=== PATIENT | male | born 1930 | race Caucasian/White ===

== ENCOUNTER 2020-02-27 09:05 | Inpatient (IN) | payer MEDICARE ==
[~2020-02-27] VITALS: Ht 193 cm; Wt 103.7 kg
[2020-02-27 09:26] LABS: BASOPHILS % (AUTO) 0 % (0-10); EOSINOPHILS % (AUTO) 1 % (0-10); HEMATOCRIT 41 % (40-54); HEMOGLOBIN 12.8 g/dL (13.3-17.7); LYMPHOCYTES # (AUTO) 1.2 10^3/uL (1.0-4.0); LYMPHOCYTES % (AUTO) 20 % (12-44); MEAN CORPUSCULAR HEMOGLOBIN 31 pg (25-34); MEAN CORPUSCULAR HGB CONC 31 g/dL (32-36); MEAN CORPUSCULAR VOLUME 99 fL (80-99); MEAN PLATELET VOLUME 10.4 fL (9.0-12.2); MONOCYTES # (AUTO) 0.6 10^3/uL (0.0-1.0); MONOCYTES % (AUTO) 9 % (0-12); NEUTROPHILS # (AUTO) 4.4 10^3/uL (1.8-7.8); NEUTROPHILS % (AUTO) 70 % (42-75); PLATELET COUNT 150 10^3/uL (130-400); WHITE BLOOD COUNT 6.3 10^3/uL (4.3-11.0)
[2020-02-27 09:39] LABS: ALBUMIN 4.1 GM/DL (3.2-4.5); INR 1.1 (0.8-1.4); POTASSIUM 5.1 MMOL/L (3.6-5.0); PROTHROMBIN TIME PATIENT 14.3 SEC (12.2-14.7)
[2020-02-27 09:40] LABS: CALCIUM 8.9 MG/DL (8.5-10.1)
[2020-02-27 09:41] LABS: TOTAL PROTEIN 7.1 GM/DL (6.4-8.2)
[2020-02-27 09:43] LABS: BILIRUBIN,TOTAL 0.8 MG/DL (0.1-1.0)
[2020-02-27 09:45] LABS: CREATININE SERUM 1.71 MG/DL (0.60-1.30)
[2020-02-27 09:48] LABS: MAGNESIUM 2.4 MG/DL (1.6-2.4)
[2020-02-27 09:51] LABS: BILIRUBIN,URINE NEGATIVE (NEGATIVE); CLARITY,URINE CLEAR; COLOR,URINE YELLOW; GLUCOSE, URINE (UA) NEGATIVE (NEGATIVE); KETONES,URINE NEGATIVE (NEGATIVE); LEUKOCYTE ESTERASE ,URINE NEGATIVE (NEGATIVE); NITRITE,URINE NEGATIVE (NEGATIVE); PH,URINE 5.5 (5-9); PROTEIN,URINE 1+ (NEGATIVE)
[2020-02-27] MEDS ORDERED: RT-ALBUTEROL INHALER HFA (VENTOLIN HFA) 18 GM IH SCH (10:00)
[2020-02-27 10:07] LABS: BACTERIA,URINE TRACE /HPF
[2020-02-27 10:08] LABS: TSH (THYROID ANALYZER) 3.28 UIU/ML (0.35-4.94)
--- NOTE | 2020-02-27 10:10 | NUR ---
PATIENT ALERT AND TALKING
--- NOTE | 2020-02-27 10:20 | Diagnostic Imaging Report ---
Indication: Epigastric pain with nausea and vomiting and weakness. Comparison: None. Discussion: 2 portable frontal upright views of the chest were obtained. Mild cardiomegaly. No consolidation, pleural fluid, or pneumothorax. No osseous abnormality. Median sternotomy is present. Impression: 1. No acute cardiopulmonary process. Dictated by: Dictated on workstation # [id number]
--- NOTE | 2020-02-27 11:44 | ED Cardiac General ---
History of Present Illness General Chief Complaint: Cardiac/General Problems Stated Complaint: ABD PAIN Nursing Triage Note: PT ARRIVED PER EMS PT STATES HAS EPIGASTRIC PAIN, N/V AND WEAKNESS FOR A FEW DAYS. PT HAS EDEMA IN LOWER EXT Source: patient, family, EMS Exam Limitations: other (Poor historian) History of Present Illness Date Seen by Provider: Feb 27, 2020 Time Seen by Provider: 09:11 Initial Comments This 89-year-old gentleman presents to the emergency room via EMS because he was too weak to get up this morning. He describes some epigastric pain which has been present since 1998 intermittently. He reports this feeling and weakness and shortness of breath get worse when he is up and around. He notably has some falls at home but he denies any injuries. He is on chronic oxygen therapy by nasal cannula at home. He also has history of heart disease with CABG. He has been seeing a Dr. Martin Euceda in [place], [place]. He recently moved to the [facility] to live with his son after his . He sees Dr. Ibarra in [place] for cardiology. He is a poor historian which his daughter states happens when he does not feel well. History is obtained from EMS, patient, his son, and his daughter. His son is rBendon Mcmanus ("John Paul") [phone] and his daughter is Vonnie Barroso [phone]. EKG reveals complete heart block with a heart rate of 33. Vital signs are stable and he is alert. Son also reported patient had some vomiting and diarrhea recently and complained of increased shortness of breath. Allergies and Home Medications Allergies Coded Allergies: Penicillins (Verified Allergy, Unknown, 02/27/20) Patient Home Medication List Home Medication List Reviewed: Yes Review of Systems Review of Systems Constitutional: no symptoms reported, weakness EENTM: No Symptoms Reported, Other (Hearing deficits) Respiratory: SOA With Exertion Cardiovascular: See HPI Gastrointestinal: See HPI Genitourinary: No Symptoms Reported Musculoskeletal: no symptoms reported Skin: no symptoms reported Psychiatric/Neurological: See HPI Endocrine: No Symptoms Reported Hematologic/Lymphatic: No Symptoms Reported Past Tdliygc-Fzxolq-Bwlwvi Hx Past Med/Social Hx: Reviewed and Corrections made Patient Social History Recent Foreign Travel: No Contact w/Someone Who Travel: No Recent Infectious Disease Expo: No Past Medical History Surgeries: Yes CABG, Orthopedic (Knees, back) Respiratory: Yes (Chronic hypoxia, uses nasal cannula) Cardiac: Yes Coronary Artery Disease Neurological: No Genitourinary: Yes ("Urinary problems") Renal Failure (Chronic kidney disease) Gastrointestinal: No Musculoskeletal: No Endocrine: No HEENT: No Cancer: No Psychosocial: No Physical Exam Vital Signs Vital Signs - First Documented 02/27/20 02/27/20 09:05 09:29 Temp 36.4 Pulse 33 Resp 24 B/P (MAP) 146/76 (99) Pulse Ox 100 O2 Delivery Nasal Cannula O2 Flow Rate 2.00 Capillary Refill : Less Than 3 Seconds Height, Weight, BMI Height: '" Weight: lbs. oz. kg; 30.00 BMI Method: General Appearance: No Apparent Distress, WD/WN HEENT: PERRL/EOMI, Normal ENT Inspection Neck: Normal Inspection Respiratory: No Accessory Muscle Use, No Respiratory Distress, Wheezing Cardiovascular: Bradycardia, Other (LE Edema) Gastrointestinal: Normal Bowel Sounds, Soft, Tenderness (mild epigastric TTP) Extremity: Non Tender, Pedal Edema, Swelling Neurologic/Psychiatric: Alert, No Motor/Sensory Deficits, Normal Mood/Affect, service order dispatcher chief II-XII Norm as Tested, Other (mildly confused conversation, poor historian) Skin: Normal Color, Warm/Dry Progress/Results/Core Measures Results/Orders Lab Results Laboratory Tests Test 02/27/20 09:15 02/27/20 09:45 02/27/20 11:05 Range/Units White Blood Count 6.3 4.3-11.0 10^3/uL Red Blood Count 4.19 L 4.30-5.52 10^6/uL Hemoglobin 12.8 L 13.3-17.7 g/dL Hematocrit 41 40-54 % Mean Corpuscular Volume 99 80-99 fL Mean Corpuscular Hemoglobin 31 25-34 pg Mean Corpuscular Hemoglobin Concent 31 L 32-36 g/dL Red Cell Distribution Width 13.0 10.0-14.5 % Platelet Count 150 130-400 10^3/uL Mean Platelet Volume 10.4 9.0-12.2 fL Immature Granulocyte % (Auto) 0 % Neutrophils (%) (Auto) 70 42-75 % Lymphocytes (%) (Auto) 20 12-44 % Monocytes (%) (Auto) 9 0-12 % Eosinophils (%) (Auto) 1 0-10 % Basophils (%) (Auto) 0 0-10 % Neutrophils # (Auto) 4.4 1.8-7.8 10^3/uL Lymphocytes # (Auto) 1.2 1.0-4.0 10^3/uL Monocytes # (Auto) 0.6 0.0-1.0 10^3/uL Eosinophils # (Auto) 0.0 0.0-0.3 10^3/uL Basophils # (Auto) 0.0 0.0-0.1 10^3/uL Immature Granulocyte # (Auto) 0.0 0.0-0.1 10^3/uL Prothrombin Time 14.3 12.2-14.7 SEC INR Comment 1.1 0.8-1.4 Activated Partial Thromboplast Time 32 24-35 SEC Sodium Level 137 135-145 MMOL/L Potassium Level 5.1 H 3.6-5.0 MMOL/L Chloride Level 106 98-107 MMOL/L Carbon Dioxide Level 21 21-32 MMOL/L Anion Gap 10 5-14 MMOL/L Blood Urea Nitrogen 33 H 7-18 MG/DL Creatinine 1.71 H 0.60-1.30 MG/DL Estimat Glomerular Filtration Rate 38 BUN/Creatinine Ratio 19 Glucose Level 106 H 70-105 MG/DL Calcium Level 8.9 8.5-10.1 MG/DL Corrected Calcium 8.8 8.5-10.1 MG/DL Magnesium Level 2.4 1.6-2.4 MG/DL Total Bilirubin 0.8 0.1-1.0 MG/DL Aspartate Amino Transf (AST/SGOT) 23 5-34 U/L Alanine Aminotransferase (ALT/SGPT) 21 0-55 U/L Alkaline Phosphatase 48 40-136 U/L Myoglobin 143.9 H 10.0-92.0 NG/ML Troponin I < 0.028 <0.028 NG/ML B-Type Natriuretic Peptide 995.3 H <100.0 PG/ML Total Protein 7.1 6.4-8.2 GM/DL Albumin 4.1 3.2-4.5 GM/DL Lipase 17 8-78 U/L TSH [place] Testing 3.28 0.35-4.94 UIU/ML Urine Color YELLOW Urine Clarity CLEAR Urine pH 5.5 5-9 Urine Specific [place] >=1.030 1.016-1.022 Urine Protein 1+ H NEGATIVE Urine Glucose (UA) NEGATIVE NEGATIVE Urine Ketones NEGATIVE NEGATIVE Urine Nitrite NEGATIVE NEGATIVE Urine Bilirubin NEGATIVE NEGATIVE Urine Urobilinogen 0.2 < = 1.0 MG/DL Urine Leukocyte Esterase NEGATIVE NEGATIVE Urine RBC (Auto) NEGATIVE NEGATIVE Urine RBC NONE /HPF Urine WBC NONE /HPF Urine Crystals NONE /LPF Urine Bacteria TRACE /HPF Urine Casts NONE /LPF Urine Mucus NEGATIVE /LPF Urine Culture Indicated NO Coronavirus 2019 (JONY) Negative Negative My Orders Orders - DEIDRE THOMPSON MD Cbc With Automated Diff (02/27/20:) Magnesium (02/27/20:17) Chest 1 View, Ap/Pa Only (02/27/20:) Ekg Tracing (02/27/20) Comprehensive Metabolic Panel (02/27/20:) Myoglobin Serum (02/27/20) Protime With Inr (02/27/20:) Partial Thromboplastin Time (02/27/20:) O2 (02/27/20:) Monitor-Rhythm Ecg Trace Only (02/27/20:) Lipid Panel (02/28/20 06:00) Ed Iv/Invasive Line Start (02/27/20:) Lipase (02/27/20:) Troponin I (02/27/20:) Thyroid Analyzer (02/27/20:) Ua Culture If Indicated (02/27/20:) Albuterol Inhaler (Ventolin Hfa) (02/27/20 10:00) Covid 19 Inhouse Test (02/27/20 10:48) BNP (02/27/20 10:51) Vital Signs/I&O 02/27/20 02/27/20 02/27/20 09:05 09:29 10:08 Temp 36.4 Pulse 33 33 Resp 24 18 B/P (MAP) 146/76 (99) 132/58 Pulse Ox 100 100 99 O2 Delivery Nasal Cannula Nasal Cannula O2 Flow Rate 2.00 2.00 Blood Pressure Mean: 82 Progress Progress Note : Progress Note Patient had a stable bradycardia. He was admitted to the ICU. Dr. Muhammad was consulted. Albuterol was given for his wheezing. Patient agreed with DNR status as communicated by his children but he is agreeable to pacing or pacemaker placement if needed. Initial ECG Impression Date: Feb 27, 2020 Initial ECG Impression Time: 09:15 Initial ECG Rate: 33 Comment Complete heart block with no ischemic changes. Diagnostic Imaging Diagonstic Imaging: Xray Plain Films/CT/US/NM/MRI: chest Comments NAME: [facility] REC#: [id number] PT STATUS: REG ER : [id number] PHYSICIAN: DEIDRE THOMPSON MD ADMIT DATE: 02/27/20/ER Draft Date of Exam:02/27/20 CHEST 1 VIEW, AP/PA ONLY Indication: Epigastric pain with nausea and vomiting and weakness. Comparison: None. Discussion: 2 portable frontal upright views of the chest were obtained. Mild cardiomegaly. No consolidation, pleural fluid, or pneumothorax. No osseous abnormality. Median sternotomy is present. Impression: 1. No acute cardiopulmonary process. Dictated on workstation # [id number] Dict: 02/27/20 1016 Trans: 02/27/20 1020 [facility] [id number] Interpreted by: CARLTON ZHANG MD Departure Communication (Admissions) Time/Spoke to Admitting Phy: 11:35 Dr. Peters Time/Spoke to Consulting Phy: 11:25 Dr. Muhammad Impression Primary Impression: Complete heart block Additional Impressions: Weakness Nausea vomiting and diarrhea Renal insufficiency Disposition: ADMITTED INPATIENT Condition: Stable Admissions Decision to Admit Reason: Admit from ER (General) Decision to Admit/Date: Feb 27, 2020 Time/Decision to Admit Time: 09:15 Departure-Patient Inst. Referrals: NO,LOCAL PHYSICIAN (PCP) Primary Care Physician DEIDRE THOMPSON MD Feb 27, 2020 11:44
--- NOTE | 2020-02-27 12:28 | NUR ---
DR LOPEZ HERE
[2020-02-27] MEDS ORDERED: ONDANSETRON 4 MG/2 ML (SDV) Z0FRAN IV PRN (13:30)
[2020-02-27] MEDS ORDERED: CATHETER FLUSH 10 ML SYR IV PRN (13:30)
--- NOTE | 2020-02-27 14:06 | Consultation-Cardiology ---
HPI-Cardiology Cardiology Consultation Date of Consultation 02/27/20 Date of Admission Time Seen by Provider: 13:00 Indication: complete heart block HPI 89 years old gentleman with history of coronary artery disease, has been following with a special education bus driver in [place]. Patient reported that he was not taking any cardiac medication, according to the son who is the caregiver patient was not on aspirin or any blood pressure medication, he was taking diuretics. He started to have increasing fatigue and loss of energy. No syncope, no chest pain, no shortness of breath. Patient was brought by EMS to the hospital and noted to be in complete heart block. On my evaluation was laying down in bed, in good spirits. Denied any active chest pain, able to hold a conversation blood pressure was stable. Not sure about his home medication. History was obtained with the assistance of the son, I visited with him over the phone Mr. Brendon najera [phone] Home Medications & Allergies Allergies: Coded Allergies: No Known Drug Allergies (Unverified , 02/27/20) Home Medication List Reviewed: Yes OUG-Jezgap-Lxduuh Hx Patient Social History Marital Status: Alcohol Use: Denies Use Recreational Drug Use: No Smoking Status: Former Smoker Type Used: Cigarettes Recent Foreign Travel: No Recent Infectious Disease Expo: No Recent Hopitalizations: No Past Medical History Discussed below Family Medical History Family Medical Hx Noncontributory Review of Systems-General Review of Systems Constitutional: see HPI, malaise, weakness EENTM: see HPI, no symptoms reported Respiratory: see HPI; No cough, No dyspnea on exertion, No hemoptysis, No orthopnea, No phlegm; short of breath; No stridor, No wheezing, No other Cardiovascular: see HPI; No chest pain, No edema, No Hx of Intervention, No palpitations, No syncope, No vascular heart diseas, No other Gastrointestinal: no symptoms reported, see HPI Genitourinary: no symptoms reported, see HPI Musculoskeletal: no symptoms reported, see HPI Skin: no symptoms reported, see HPI Psychiatric/Neurological: No Symptoms Reported, See HPI Reviewed Test Results Reviewed Test Results Lab Laboratory Tests Test 02/27/20 09:15 02/27/20 09:45 02/27/20 11:05 Range/Units White Blood Count 6.3 4.3-11.0 10^3/uL Red Blood Count 4.19 L 4.30-5.52 10^6/uL Hemoglobin 12.8 L 13.3-17.7 g/dL Hematocrit 41 40-54 % Mean Corpuscular Volume 99 80-99 fL Mean Corpuscular Hemoglobin 31 25-34 pg Mean Corpuscular Hemoglobin Concent 31 L 32-36 g/dL Red Cell Distribution Width 13.0 10.0-14.5 % Platelet Count 150 130-400 10^3/uL Mean Platelet Volume 10.4 9.0-12.2 fL Immature Granulocyte % (Auto) 0 % Neutrophils (%) (Auto) 70 42-75 % Lymphocytes (%) (Auto) 20 12-44 % Monocytes (%) (Auto) 9 0-12 % Eosinophils (%) (Auto) 1 0-10 % Basophils (%) (Auto) 0 0-10 % Neutrophils # (Auto) 4.4 1.8-7.8 10^3/uL Lymphocytes # (Auto) 1.2 1.0-4.0 10^3/uL Monocytes # (Auto) 0.6 0.0-1.0 10^3/uL Eosinophils # (Auto) 0.0 0.0-0.3 10^3/uL Basophils # (Auto) 0.0 0.0-0.1 10^3/uL Immature Granulocyte # (Auto) 0.0 0.0-0.1 10^3/uL Prothrombin Time 14.3 12.2-14.7 SEC INR Comment 1.1 0.8-1.4 Activated Partial Thromboplast Time 32 24-35 SEC Sodium Level 137 135-145 MMOL/L Potassium Level 5.1 H 3.6-5.0 MMOL/L Chloride Level 106 98-107 MMOL/L Carbon Dioxide Level 21 21-32 MMOL/L Anion Gap 10 5-14 MMOL/L Blood Urea Nitrogen 33 H 7-18 MG/DL Creatinine 1.71 H 0.60-1.30 MG/DL Estimat Glomerular Filtration Rate 38 BUN/Creatinine Ratio 19 Glucose Level 106 H 70-105 MG/DL Calcium Level 8.9 8.5-10.1 MG/DL Corrected Calcium 8.8 8.5-10.1 MG/DL Magnesium Level 2.4 1.6-2.4 MG/DL Total Bilirubin 0.8 0.1-1.0 MG/DL Aspartate Amino Transf (AST/SGOT) 23 5-34 U/L Alanine Aminotransferase (ALT/SGPT) 21 0-55 U/L Alkaline Phosphatase 48 40-136 U/L Myoglobin 143.9 H 10.0-92.0 NG/ML Troponin I < 0.028 <0.028 NG/ML B-Type Natriuretic Peptide 995.3 H <100.0 PG/ML Total Protein 7.1 6.4-8.2 GM/DL Albumin 4.1 3.2-4.5 GM/DL Lipase 17 8-78 U/L TSH [place] Testing 3.28 0.35-4.94 UIU/ML Urine Color YELLOW Urine Clarity CLEAR Urine pH 5.5 5-9 Urine Specific [place] >=1.030 1.016-1.022 Urine Protein 1+ H NEGATIVE Urine Glucose (UA) NEGATIVE NEGATIVE Urine Ketones NEGATIVE NEGATIVE Urine Nitrite NEGATIVE NEGATIVE Urine Bilirubin NEGATIVE NEGATIVE Urine Urobilinogen 0.2 < = 1.0 MG/DL Urine Leukocyte Esterase NEGATIVE NEGATIVE Urine RBC (Auto) NEGATIVE NEGATIVE Urine RBC NONE /HPF Urine WBC NONE /HPF Urine Crystals NONE /LPF Urine Bacteria TRACE /HPF Urine Casts NONE /LPF Urine Mucus NEGATIVE /LPF Urine Culture Indicated NO Coronavirus 2019 (JONY) Negative Negative Physical Exam Physical Exam Vital Signs Vital Signs - First Documented 02/27/20 02/27/20 09:05 09:29 Temp 36.4 Pulse 33 Resp 24 B/P (MAP) 146/76 (99) Pulse Ox 100 O2 Delivery Nasal Cannula O2 Flow Rate 2.00 Capillary Refill : Less Than 3 Seconds Height, Weight, BMI Height: '" Weight: lbs. oz. kg; 30.00 BMI Method: General Appearance: No Apparent Distress, WD/WN Eyes: Bilateral Eye Normal Inspection, Bilateral Eye PERRL, Bilateral Eye EOMI HEENT: PERRL/EOMI, TMs Normal, Normal ENT Inspection, Pharynx Normal, Moist Mucous Membranes Neck: Full Range of Motion, Normal Inspection, Non Tender, Supple, Carotid Bruit Respiratory: Chest Non Tender, Normal Breath Sounds, No Accessory Muscle Use, No Respiratory Distress Cardiovascular: No Edema, No Gallop, No JVD, Normal Peripheral Pulses, Bradycardia, Systolic Murmur Gastrointestinal: Normal Bowel Sounds, No Organomegaly, No Pulsatile Mass, Non Tender, Soft Back: Normal Inspection, No CVA Tenderness, No Vertebral Tenderness Extremity: Normal Capillary Refill, Normal Inspection, Normal Range of Motion, Non Tender, No Calf Tenderness, No Pedal Edema Neurologic/Psychiatric: Alert, Oriented x3, No Motor/Sensory Deficits, Normal Mood/Affect Skin: Normal Color, Warm/Dry Lymphatic: No Adenopathy A/P-Cardiology Admission Diagnosis Symptomatic bradycardia Complete heart block Coronary artery disease Hyperlipidemia Assessment/Plan Symptomatic bradycardia with complete heart block, heart rate in the 30s. Not sure if he is on any medication that can cause bradycardia. According to the son patient is not taking anything. He is asymptomatic and blood pressure is stable. I will start him on IV fluid and monitoring him overnight if he continued to be in complete heart Block I am planning to proceed with cardiac pacemaker implant. Discussed the procedure with the patient and his son. Coronary artery disease, history of CABG, no recent cardiac workup, no active chest pain. Currently in complete heart block with left bundle branch block. Continue to monitor Questionable history of hyperlipidemia, I'll monitor lipids Hypertension, monitor blood pressure, avoid beta blockers and calcium shunt blockers today until he had a pacemaker implanted Clinical Quality Measures DVT/VTE Risk/Contraindication: Risk Factor Score Per Nursin RFS Level Per Nursing on Admit: 4+=Very High SLADE LOPEZ MD Feb 27, 2020 14:06
[2020-02-27] MEDS ORDERED: FLU QUAD HIGH DOSE 240 MCG/0.7 ML 2020-21 (FLUZONE) IM ONE (14:15)
[2020-02-27 16:33] VITALS: BP 146/76
[2020-02-27] MEDS: CATHETER FLUSH 10 ML SYR IV SCH ×2 (16:57→21:46)
--- NOTE | 2020-02-27 19:47 | History & Physical-Hospitalist ---
History of Present Illness HPI/Chief Complaint Enrique Freire is an 89 year old male with PMH CAD who presented with fatigue. He is very hard of hearing and it is difficult to obtain history. He reports feeling tired. He says he feels sick. He feels nauseous. He denies chest pain. He denies shortness of breath. He denies any other pain. He denies any lightheadedness. Source: patient Exam Limitations: no limitations Date Seen 02/27/20 Time Seen by a Provider: 15:00 Attending Physician Arley Cullen MD PCP No,Local Physician Referring Physician Date of Admission Feb 27, 2020 at 11:35 Home Medications & Allergies Home Medications Reviewed patient Home Medication Reconciliation performed by pharmacy medication reconciliations fire sprinkler service technician and/or nursing. Patients Allergies have been reviewed. Allergies Allergies Coded Allergies Penicillins (Verified Allergy, Unknown, 02/27/20) Past Prllzjg-Fszljp-Zunsep Hx Past Med/Social Hx: Reviewed Nursing Past Med/Soc Hx Patient Social History Marrital Status: Alcohol Use: Denies Use Recreational Drug Use: No Smoking Status: Former Smoker Type Used: Cigarettes Recent Foreign Travel: No Contact w/other who traveled: No Recent Hopitalizations: No Recent Infectious Disease Expo: No Past Medical History Surgeries: CABG, Orthopedic (Knees, back) Cardiac: Coronary Artery Disease Genitourinary: Renal Failure (Chronic kidney disease) Review of Systems Constitutional: malaise, weakness EENTM: no symptoms reported Respiratory: no symptoms reported Cardiovascular: no symptoms reported Gastrointestinal: nausea Genitourinary: no symptoms reported Musculoskeletal: no symptoms reported Skin: no symptoms reported Psychiatric/Neurological: No Symptoms Reported Physical Exam Physical Exam Vital Signs Vital Signs - First Documented 02/27/20 02/27/20 02/27/20 09:05 09:29 16:33 Temp 36.4 Pulse 33 Resp 24 B/P (MAP) 146/76 (99) Pulse Ox 100 O2 Delivery Nasal Cannula O2 Flow Rate 2.00 FiO2 28 Capillary Refill : Less Than 3 Seconds Height, Weight, BMI Height: '" Weight: lbs. oz. kg; 30.00 BMI Method: General Appearance: No Apparent Distress, Obese HEENT: PERRL/EOMI, Pharynx Normal, Other (wearing glasses) Neck: Normal Inspection, Supple Respiratory: Lungs Clear, Normal Breath Sounds, No Respiratory Distress Cardiovascular: No Murmur, Bradycardia (regular rhythm) Gastrointestinal: Normal Bowel Sounds, Non Tender, Soft Extremity: Normal Inspection, Non Tender, No Pedal Edema Neurologic/Psychiatric: Alert, Oriented x3, Normal Mood/Affect, Other (hearing impaired) Skin: Normal Color, Warm/Dry Results Results/Procedures Labs Laboratory Tests 02/27/20 09:15 Patient resulted labs reviewed. Imaging: Reviewed Imaging Report Assessment/Plan Admission Diagnosis Third degree heart block Admission Status: Inpatient Order (span 2 midnights) Reason for Inpatient Admission: Heart block requiring likely pacemaker Assessment and Plan Third degree heart block EKG revealed complete heart block Cardiology consulted, appreciate assistance Planning for likely pacemaker tomorrow Troponin negative BNP mildly elevated No evidence of infectious process CKD 3b Cr 1.71, likely at baseline Continue to monitor CAD Not taking any home meds Started on Aspirin Advanced age Hearing impaired Obesity Clinically significant, no acute management needs DVT prophylaxis: held for procedure Diagnosis/Problems Diagnosis/Problems (1) Third degree heart block Status: Acute (2) 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
[2020-02-27] MEDS: RT-ALBUTEROL/IPRATROPIUM 3 ML (DUONEB) VIAL INH SCH (20:43)
[2020-02-28 03:08] LABS: HEMOGLOBIN 12.6 g/dL (13.3-17.7); MEAN PLATELET VOLUME 11.1 fL (9.0-12.2); WHITE BLOOD COUNT 7.4 10^3/uL (4.3-11.0)
[2020-02-28 03:23] LABS: POTASSIUM 4.7 MMOL/L (3.6-5.0)
[2020-02-28 03:24] LABS: ALBUMIN 4.1 GM/DL (3.2-4.5)
[2020-02-28 03:26] LABS: TOTAL PROTEIN 7.1 GM/DL (6.4-8.2)
[2020-02-28 03:28] LABS: BILIRUBIN,TOTAL 0.8 MG/DL (0.1-1.0)
[2020-02-28 03:30] LABS: CREATININE SERUM 1.76 MG/DL (0.60-1.30)
[2020-02-28] MEDS: CATHETER FLUSH 10 ML SYR IV SCH ×3 (04:54→22:23)
[2020-02-28] MEDS: ASPIRIN E.C. 81 MG (ECOTRIN) TAB PO SCH (08:06)
[2020-02-28] MEDS ORDERED: NS IV 1000 ML 1,000 ML IV ONE (09:13)
[2020-02-28] MEDS ORDERED: BACITRACIN INJECTION 50,000 UNIT, SODIUM CHLORIDE 0.9% IRRIGATIO 500 ML IR ONE ×2 (09:15)
[2020-02-28] MEDS ORDERED: CA C1TAB75 PO (09:36)
[2020-02-28] MEDS ORDERED: OMEP40CA27 PO (09:36)
[2020-02-28] MEDS ORDERED: LORA10TA7 PO (09:36)
[2020-02-28] MEDS ORDERED: PRAV80TA2 PO (09:36)
[2020-02-28] MEDS ORDERED: SERT25TA5 PO (09:36)
[2020-02-28] MEDS ORDERED: MULT-1136 PO (09:36)
[2020-02-28] MEDS ORDERED: ACET-2650 PO (09:36)
[2020-02-28] MEDS ORDERED: CLOP75TA28 PO (09:36)
[2020-02-28] MEDS ORDERED: FURO20TA4 PO (09:36)
--- NOTE | 2020-02-28 09:37 | NUR ---
UNABLE TO SPEAK WITH THE PT AT THIS TIME- I DID REACH OUT TO HIS STEP SON (LORAINE) WHO HE KNOW LIVES WITH AND WENT THRU THE EXT MED HISTORY TO COMPLETE THE MED REC LORAINE WAS ABLE TO NAME ALL OF ED'S MEDS WELL TELLING ME WHEN/HOW PT TAKES EACH MED. ALL HIS INFORMATION MATCHED THE EXT MED HISTORY OTC MEDS: TYLENOL 650MG [employer] CALCIUM W/ VIT D CHEWS LORATADINE
[2020-02-28] MEDS ORDERED: LIDOCAINE 1% INJ 20 ML 20 ML VIAL ONE (10:07)
[2020-02-28] MEDS ORDERED: MIDAZOLAM 5 MG/5 ML (VERSED) VIAL ONE (10:07)
[2020-02-28] MEDS ORDERED: fentaNYL INJECTION 100 MCG/2 ML AMP ONE (10:08)
[2020-02-28] MEDS ORDERED: NS (IVPB) 0 ML ONE (10:08)
[2020-02-28] MEDS ORDERED: NS IV 1000 ML 1,000 ML ONE (10:08)
[2020-02-28] MEDS ORDERED: VANCOMYCIN INJECTION 1,000 MG in NS (IVPB) 250 ML IV ONE (10:15)
[2020-02-28] MEDS ORDERED: HEParin (CATH LAB) 1,000 ML IV ONE (10:34)
--- NOTE | 2020-02-28 10:41 | Cardiology Progress Note ---
Subjective Date Seen by Provider: Feb 28, 2020 Time Seen by Provider: 10:39 Subjective/Events-last exam Patient was seen and evaluated, laying down in bed, denied any chest pain, still bradycardic Review of Systems General: No Chills, No Night Sweats; Fatigue, Malaise; No Appetite, No Other HEENT: No Head Aches, No Visual Changes, No Eye Pain, No Ear Pain, No Dyspha bhupinder, No Sinus Congestion, No Post Nasal Drip, No Sore Throat, No Other Pulmonary: No Dyspnea, No Cough, No Pleuritic Chest Pain, No Other Cardiovascular: No: Chest Pain, Palpitations, Orthopnea, Paroxysmal Noc. Dyspnea, Edema, Lt Headedness, Other Objective-Cardiology Exam Last Set of Vital Signs Vital Signs 02/27/20 02/28/20 02/28/20 02/28/20 02/28/20 16:33 05:00 06:00 06:46 08:00 Temp 36.4 Pulse 34 Resp 25 B/P (MAP) 119/65 Pulse Ox 92 O2 Delivery Nasal Cannula O2 Flow Rate 2.00 FiO2 28 Capillary Refill : Less Than 3 Seconds I&O Intake and Output 02/28/20 00:00 Intake Total 250 ml Output Total 120 ml Balance 130 ml Intake Oral 250 ml Output Urine Total 120 ml Daily Weight Change No General: Alert, Oriented X3, Cooperative HEENT: Atraumatic, PERRLA Neck: Supple, No JVD, No Thyromegaly Lungs: Clear to Auscultation, Normal Air Movement Heart: Normal S1, Normal S2, No Murmurs, Other (bradycardia) Abdomen: Normal Bowel Sounds, Soft, No Tenderness, No Hepatosplenomegaly, No Masses Extremities: No Clubbing, No Cyanosis, No Edema, Normal Pulses, No Tenderness/Swelling Skin: No Rashes, No Breakdown, No Significant Lesion Neuro: Normal Gait, Normal Speech, Strength at 5/5 X4 Ext, Normal Tone, Sensation Intact Psych/Mental Status: Mental Status NL, Mood NL Results Lab Laboratory Tests 02/28/20 02:59 A/P-Cardiology Admission Diagnosis Symptomatic bradycardia Complete heart block Coronary artery disease Hyperlipidemia Assessment/Plan Symptomatic bradycardia with complete heart block, heart rate in the 30s. Discussed the management plan again with his son Brendon, I will proceed with dual- chamber pacemaker implantation today Coronary artery disease, history of CABG, no recent cardiac workup, no active chest pain. Currently in complete heart block with left bundle branch block. Continue to monitor Hyperlipidemia, LDL 104, total cholesterol 147. Continue statin treatment Hypertension, monitor blood pressure, avoid beta blockers and calcium shunt blockers today until he had a pacemaker implanted Clinical Quality Measures DVT/VTE Risk/Contraindication: Risk Factor Score Per Nursin RFS Level Per Nursing on Admit: 4+=Very High SLADE LOPEZ MD Feb 28, 2020 10:41
--- NOTE | 2020-02-28 10:42 | Cardiac Procedure Note-CS/ASA ---
Pre-Procedure Note Pre-Op Procedure Note H&P Reviewed The H&P was reviewed, patient examined and no changes noted. Date H&P Reviewed: Feb 28, 2020 Time H&P Reviewed: 10:41 Conscious Sedation Pre-Proced Time 10:41 ASA Score 3 For ASA 3 and 4: Consider anesthesia and medical clearance. Also, for patients with a history of failed moderate sedation consider anesthesia. Airway Lungs Heart ASA score ASA 1: a normal healthy patient ASA 2: a patient with a mild systemic disease (mid diabetes, controlled hypertension, obesity x ASA 3: a patient with a severe systemic disease that limits activity (angina, COPD, prior Myocardial infarction) ASA 4: a patient with an incapacitating disease that is a constant threat to life (CHF, renal failure) ASA 5: a moribund patient not expected to survive 24 hrs. (ruptured aneurysm) ASA 6: a declared brain- patient whose organs are being harvested. For emergent operations, add the letter E after the classification Mallampati Classification Grade 3 Sedation Plan Analgesia, Amnesia, Plan communicated to team members, Discussed options with patient/fam, Discussed risks with patient/fam The patient is an appropriate candidate to undergo the planned procedure, sedation, and anesthesia. The patient immediately re-assessed prior to indication. SLADE LOPEZ MD Feb 28, 2020 10:42
--- NOTE | 2020-02-28 12:40 | Progress Note - Hospitalist ---
Subjective HPI/CC On Admission Date Seen by Provider: Feb 28, 2020 Time Seen by Provider: 09:15 Enrique Freire is an 89 year old male with PMH CAD who presented with fatigue. He is very hard of hearing and it is difficult to obtain history. He reports feeling tired. He says he feels sick. He feels nauseous. He denies chest pain. He denies shortness of breath. He denies any other pain. He denies any lightheadedness. Subjective/Events-last exam He reports feeling about the same as yesterday. He denies any shortness of breath. He denies any pain. Objective Exam Vital Signs Vital Signs Date Time Temp Pulse Resp B/P (MAP) Pulse Ox O2 Delivery O2 Flow Rate FiO2 02/28/20 10:00 32 18 151/83 79 Nasal Cannula 2.00 02/28/20 08:00 36.4 02/27/20 16:33 28 Capillary Refill : Less Than 3 Seconds General Appearance: No Apparent Distress, WD/WN Respiratory: Lungs Clear, Normal Breath Sounds, No Respiratory Distress Cardiovascular: No Murmur, Bradycardia (regular rhythm) Gastrointestinal: Normal Bowel Sounds, Non Tender, Soft Extremity: Normal Inspection, Non Tender, No Pedal Edema Skin: Normal Color, Warm/Dry Results/Procedures Lab Laboratory Tests 02/28/20 02:59 Patient resulted labs reviewed. Imaging: Reviewed Imaging Report Assessment/Plan Assessment and Plan Assess & Plan/Chief Complaint Complete heart block EKG revealed complete heart block Cardiology consulted, appreciate assistance Scheduled for pacemaker today Troponin negative BNP mildly elevated No evidence of infectious process CKD 3b Cr 1.76, likely at baseline Continue to monitor CAD Not taking any home meds Started on Aspirin Advanced age Hearing impaired Clinically significant, no acute management needs DVT prophylaxis: held for procedure Diagnosis/Problems Diagnosis/Problems (1) Complete heart block Status: Acute (2) 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
[2020-02-28] MEDS ORDERED: NS IV 1000 ML 1,000 ML IV SCH (12:58)
[2020-02-28] MEDS ORDERED: PATIENT MAY USE OWN MEDS, ALL PO SCH (13:00)
[2020-02-28] MEDS ORDERED: ATROPINE INJECTION 1 MG/10 ML SYR (ABBOTT) INJ ONE (13:07)
--- NOTE | 2020-02-28 13:08 | Permanent Pacemaker Implant ---
Dual Chamber Pacemaker Implant PROCEDURE PHYSICIAN: Slade Muhammad DUAL CHAMBER PACEMAKER IMPLANTATION: DATE OF PROCEDURE: 02/28/20 INDICATION: Complete heart block, bradycardia POSTOPERATIVE DIAGNOSIS: Complete heart block HISTORY: 89 years old gentleman admitted with generalized weakness and loss of energy noted to be in severe bradycardia with complete heart block. Dual-chamber permanent pacemaker was recommended. PROCEDURE PERFORMED: 1. Dual-chamber permanent pacemaker implantation. 2. Fluoroscopy. 3. Central venous access. 4. Venogram ANESTHESIA: Local anesthesia, conscious sedation. COMPLICATIONS: None. ESTIMATED BLOOD LOSS:300 mL. SPECIMENS: None. ORAL ANTICOAGULATION: None. PROCEDURE DETAILS: The patient is a 89 male admitted with severe bradycardia and complete heart block, placed him on IV fluid and monitor overnight no improvement in heart rate. Decided to proceed with dual-chamber pacemaker implant. And after all of the patients questions and discussing with the son and answering all questions were answered, the patient was brought to the EP Lab. The patient's left chest was prepped and draped in sterile fashion. A 2 inch horizontal incision was made 1 cm below the clavicle and dissection carried down to the pectoralis fascia. Using the modified Seldinger technique and under fluoroscopy guidance, the anterior aspect of the left axillary vein was accessed 2 times, the first time the wire kept going in a small vein in the chest, not to work the right atrium. I left the wire in the vein and did venogram and it appear to be parallel to the subclavian vein. I removed the needle accessed again and it went again in that small vein. I changed the angle of access and I was able to access the left subclavian vein. Once I placed the J-wire while I was trying to access again patient became asystole, given 2 doses of atropine without improvement we started transcutaneous pacing multiple attempt was unsuccessful a little I was able to get blood back I was unable to advance the wire. Subsequently I placed the sheath then then removed the dilator and advanced a second wire in the sheath then removed the sheath and placed it over 1 wire and The second wire on the side. The RV lead was then inserted. The RV lead was directed across the tricuspid valve to the apical septal portion of the right ventricle. The position was checked in [place] and ASTUDILLO views. The screw was deployed and the lead connected to the gis programmer. Close sensing and pacing thresholds were obtained. Diaphragmatic pacing was ruled out. The lead was secured with 2-0 silk ties to the underlying muscle and fascia. Next, a 7-Korean sheath was introduced through the remaining J-wire. An atrial lead was then introduced and guided to the level of the right appendage. The screw was deployed and the lead was connected to the interrogator. Good sensing and pacing thresholds were obtained. Diaphragmatic pacing was ruled out. The leads were secured with 2-0 silk ties to the underlying muscle and fascia. The leads were connected to the device in a hermetic fashion. The device and leads were placed in the pocket. Aggressive irrigation with saline solution was done. The device was secured to the underlying muscle and fascia with a 2-0 silk tie. interrogation of the device revealed good integrity of all the leads and good connections. The wound was then closed using 2 layers. The first layer was interrupted 2-0 absorbable Vicryl suture. The last layer was a single subcuticular layer with 4-0 Vicryl suture. Half inch Steri-Strips and a small dressing were then applied to the wound. The patient tolerated the procedure well and was returned to the recovery room in stable condition with stable vital signs. DEVICE INFORMATION: GEETHA Terrell DR MRI [id number] RA LEAD: [id number] RV LEAD: [id number] PER-OPERATIVE DEVICE INTERROGATION: Good sensing and capture activity IMMEDIATE POSTOPERATIVE DEVICE INTERROGATION: P-wave 1.2 V, impedance 380, threshold 1.25 ball at 0.4 ms R wave was not detected, after long positive was no intrinsic R-wave. Impedance 416 threshold 0.5 ball to 0.4 ms PLAN: The patient transferred to the ICU. We will continue with two more doses of IV antibiotics. We will check a chest x-ray and interrogate the device in the [facility]. The patient will continue on oral antibiotics for 5 days. CONCLUSION: Successful implantation of dual chamber pacemaker with no complication SLADE MUHAMMAD MD Feb 28, 2020 13:08
--- NOTE | 2020-02-28 13:37 | Diagnostic Imaging Report ---
EXAMINATION: Chest 1 view HISTORY: Pacemaker placement COMPARISON: 02/27/2020 FINDINGS: Median sternotomy wires are aligned. There are coronary artery bypass graft markers. Left subclavian pacemaker is present. No pneumothorax is seen. There is mild pulmonary edema. Heart is mildly enlarged. There is an unchanged prominence to the aortic knob. IMPRESSION: 1. No pneumothorax status post pacemaker placement. 2. Prominent aortic knob which may be related to underlying aortic aneurysm. Dictated by: Dictated on workstation # [id number]
[2020-02-28] MEDS: ceFAZolin INJECTION 1,000 MG in WATER (STERILE) FOR INJECTION 10 ML IV SCH ×2 (13:46→22:25)
[2020-02-28] MEDS: RT-ALBUTEROL/IPRATROPIUM 3 ML (DUONEB) VIAL INH SCH ×2 (14:52→21:22)
--- NOTE | 2020-02-28 15:15 | NUR ---
THIS NURSE NOTIFIED DR UCLLEN PT SCORED A [address] CULLEN WOULD LIKE THIS NURSE TO ASK DR LOPEZ WHEN PT CAN HAVE LOVENOX. DR LOPEZ NOTIFIED THIS NURSE PT CAN START LOVENOX TOMORROW. DR CULLNE NOTIFIED. WILL CONTINUE TO MONITOR.
--- NOTE | 2020-02-28 19:21 | NUR ---
THIS NURSE NOTIFIED DR CULLEN PT HAS NOT VOIDED IN THE LAST 6 HOURS. PT HAS BEEN NPO FOR PROCEDURE AND HAS NOT EATEN OR DRANK ANYTHING SINCE. BLADDER SCAN SHOWED 40-50 ML. PT IS ASYMPTOMATIC. SBP HAS BEEN 130-140S AND HR HAS BEEN 70-80. ORDER GIVEN TO CONTINUE NS AT 100ML/HR AND TO MONITOR FOR NOW.
[2020-02-28] MEDS: NS IV 1000 ML 1,000 ML IV SCH (19:31)
[2020-02-29 00:20] VITALS: BP 127/78
[2020-02-29] MEDS ORDERED: RT-ALBUTEROL INHALER HFA (VENTOLIN HFA) 18 GM IH PRN (00:30)
--- NOTE | 2020-02-29 01:15 | NUR ---
E-ICU CALLED D/T PT BECOMING INCREASINGLY AGITATED AND PULLING OUT LINES. ORDERS RECEIVED. SEE ORDER HISTORY.
[2020-02-29] MEDS ORDERED: MELATONIN 3 MG TABLET ONE (02:11)
[2020-02-29] MEDS: MELATONIN 3 MG TABLET PO SCH ×3 (02:13→20:07)
[2020-02-29] MEDS: RT-ALBUTEROL INHALER HFA (VENTOLIN HFA) 18 GM IH SCH ×4 (02:31→21:00)
[2020-02-29 03:45] LABS: HEMOGLOBIN 11.5 g/dL (13.3-17.7); WHITE BLOOD COUNT 7.4 10^3/uL (4.3-11.0)
[2020-02-29 03:58] LABS: ALBUMIN 3.9 GM/DL (3.2-4.5)
[2020-02-29 03:59] LABS: POTASSIUM 4.2 MMOL/L (3.6-5.0)
[2020-02-29 04:00] LABS: CALCIUM 8.3 MG/DL (8.5-10.1)
[2020-02-29 04:01] LABS: TOTAL PROTEIN 6.6 GM/DL (6.4-8.2)
[2020-02-29 04:05] LABS: CREATININE SERUM 1.39 MG/DL (0.60-1.30)
[2020-02-29] MEDS: CATHETER FLUSH 10 ML SYR IV SCH ×2 (04:58→14:50)
[2020-02-29] MEDS: ceFAZolin INJECTION 1,000 MG in WATER (STERILE) FOR INJECTION 10 ML IV SCH (05:00)
[2020-02-29] MEDS: NS IV 1000 ML 1,000 ML IV SCH (05:01)
--- NOTE | 2020-02-29 05:30 | NUR ---
SITTER PLACED AT BEDSIDE AT 0200 D/T PT INCREASED AGITATION. PT HAS BEEN ATTEMPTING TO GET OUT OF BED, PULLING AT IV AND MCCONNELL CATHETER. PT IS VERY HARD TO REDIRECT AND PULLING HAS BECOME WORSE. CALL PLACED TO E-ICU TO UPDATE ON PT STATUS. ORDERS RECEIVED FOR 0.25 MG XANAX.
[2020-02-29] MEDS ORDERED: ALPRAZolam 0.25 MG (XANAX) TAB ONE (05:39)
[2020-02-29] MEDS ORDERED: ALPRAZolam 0.25 MG (XANAX) TAB PO ONE (05:45)
--- NOTE | 2020-02-29 06:00 | NUR ---
0600- PT ATTEMPTING TO CRAWL OUT OF BED AND UNABLE TO BE REDIRECTED. MULTIPLE RNS HOLDING PT IN BED. E-ICU CAMERA'D IN. ORDERS FOR FENTANYL GIVEN. SEE EMAR. 0630- DR CULLEN CALLED AND UPDATED ON PT STATUS. ORDERS GIVEN TO START PRECEDEX GTT.
[2020-02-29] MEDS ORDERED: fentaNYL INJECTION 100 MCG/2 ML AMP IVP ONE (06:30)
[2020-02-29] MEDS ORDERED: DexMEDEtomidine PRE MIX 100 ML IV ONE (06:45)
[2020-02-29] MEDS ORDERED: DexMEDEtomidine PRE MIX 100 ML IV SCH ×2 (06:45)
[2020-02-29] MEDS: ASPIRIN E.C. 81 MG (ECOTRIN) TAB PO SCH (09:38)
--- NOTE | 2020-02-29 11:00 | NUR ---
DR LOPEZ NOTIFIED THIS NURSE PT IS OKAY TO GO HOME FROM CARDIOLOGY STANDPOINT ONCE HE IS MORE AWAKE. PT IS TO F/U IN 1 [address] CULLEN NOTIFIED.
--- NOTE | 2020-02-29 11:51 | Cardiology Progress Note ---
Subjective Date Seen by Provider: Feb 29, 2020 Time Seen by Provider: 11:49 Subjective/Events-last exam Patient is in bed, was confused last night. Sedated. Review of Systems General: Fatigue, Malaise HEENT: No Head Aches, No Visual Changes, No Eye Pain, No Ear Pain, No Dysphasia, No Sinus Congestion, No Post Nasal Drip, No Sore Throat, No Other Pulmonary: No Dyspnea, No Cough, No Pleuritic Chest Pain, No Other Cardiovascular: No: Chest Pain, Palpitations, Orthopnea, Paroxysmal Noc. Dyspnea, Edema, Lt Headedness, Other Objective-Cardiology Exam Last Set of Vital Signs Vital Signs 02/29/20 02/29/20 02/29/20 00:20 08:14 10:00 Temp 37.1 Pulse 80 Resp 19 B/P (MAP) 126/69 Pulse Ox 93 O2 Delivery Nasal Cannula O2 Flow Rate 3.00 FiO2 36 Capillary Refill : Less Than 3 Seconds I&O Intake and Output 02/29/20 00:00 Intake Total 50 ml Output Total 1020 ml Balance -970 ml Intake Oral 50 ml Output Urine Total 1020 ml # Voids 1 General: Alert, No Acute Distress HEENT: Atraumatic, PERRLA Neck: Supple, No JVD, No Thyromegaly Lungs: Clear to Auscultation, Normal Air Movement Heart: Regular Rate, Normal S1, Normal S2, No Murmurs Abdomen: Normal Bowel Sounds, Soft, No Tenderness, No Hepatosplenomegaly, No Masses Extremities: No Clubbing, No Cyanosis, No Edema, Normal Pulses, No Tenderness/Swelling Skin: No Rashes, No Breakdown, No Significant Lesion Neuro: Normal Speech, Normal Tone, Sensation Intact Psych/Mental Status: Mood NL, Other (confused and agitated) Results Lab Laboratory Tests 02/29/20 03:12 A/P-Cardiology Admission Diagnosis Symptomatic bradycardia Complete heart block Coronary artery disease Hyperlipidemia Assessment/Plan Change in mental status, confusion and agitation, probably secondary to consci ous sedation and underlying dementia. Complete heart block status post dual-chamber pacemaker implantation done on February 28, 2020. Pacemaker dependent. Device check was good today. Will use clindamycin for 5 days due to penicillin allergy Coronary artery disease, history of CABG, no recent cardiac workup, no active chest pain. Currently in complete heart block with left bundle branch block. Continue to monitor Hyperlipidemia, LDL 104, total cholesterol 147. Continue statin treatment Hypertension, monitor blood pressure, avoid beta blockers and calcium shunt blockers today until he had a pacemaker implanted Dementia. Worsened last night probably secondary to staying in the hospital and conscious sedation Okay for discharge from cardiology standpoint and follow up with my office in one week, clindamycin for 5 days Clinical Quality Measures DVT/VTE Risk/Contraindication: Risk Factor Score Per Nursin RFS Level Per Nursing on Admit: 4+=Very High SLADE LOPEZ MD Feb 29, 2020 11:51
--- NOTE | 2020-02-29 14:48 | Progress Note - Hospitalist ---
Subjective HPI/CC On Admission Date Seen by Provider: Feb 29, 2020 Time Seen by Provider: 10:20 Enrique Freire is an 89 year old male with PMH CAD who presented with fatigue. He is very hard of hearing and it is difficult to obtain history. He reports feeling tired. He says he feels sick. He feels nauseous. He denies chest pain. He denies shortness of breath. He denies any other pain. He denies any lightheadedness. Subjective/Events-last exam he is lethargic and uncooperative. Objective Exam Vital Signs Vital Signs Date Time Temp Pulse Resp B/P (MAP) Pulse Ox O2 Delivery O2 Flow Rate FiO2 02/29/20 13:00 82 02/29/20 12:00 18 128/70 94 Nasal Cannula 3.00 02/29/20 08:14 37.1 02/29/20 00:20 36 Capillary Refill : Less Than 3 Seconds General Appearance: WD/WN, Other (lethargic) Respiratory: Lungs Clear, Normal Breath Sounds, No Respiratory Distress Cardiovascular: Regular Rate, Rhythm, No Edema, No Murmur Gastrointestinal: Normal Bowel Sounds, Non Tender, Soft Extremity: Normal Inspection, Non Tender Neurologic/Psychiatric: Other (lethargic, responds to painful stimuli, opens eyes and mumbles incoherent sounds) Skin: Normal Color, Warm/Dry Results/Procedures Lab Laboratory Tests 02/29/20 03:12 Patient resulted labs reviewed. Imaging: Reviewed Imaging Report Assessment/Plan Assessment and Plan Assess & Plan/Chief Complaint Complete heart block EKG revealed complete heart block Cardiology consulted, appreciate assistance Pacemaker placed 02/27 Delirium Likely dementia Hearing impaired Advanced age High risk for delirium Required sedating meds overnight due to agitation Avoid delirium triggers Reorient as needed CKD 3b Cr 1.39, likely at baseline Continue to monitor CAD Not taking any home meds Started on Aspirin DVT prophylaxis: Lovenox Diagnosis/Problems Diagnosis/Problems (1) Complete heart block Status: Acute (2) 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
[2020-02-29] MEDS: CLINDAMYCIN 150 MG (CLEOCIN) CAP PO SCH ×2 (14:50→20:08)
[2020-02-29] MEDS: ENOXAPARIN 40 MG/0.4 ML (LOVENOX) SYR SC SCH (15:08)
--- NOTE | 2020-02-29 16:10 | NUR ---
REPORT CALLED TO [facility] ON FOURTH FLOOR. PT TAKEN VIA BED WITH BELONGING. PT IS RESTING COMFORTABLY IN BED WITH CALL LIGHT. BED ALARM ON. PT DENIES ANY NEEDS. 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
--- NOTE | 2020-02-29 18:55 | NUR ---
ALYSE CALLED AT THIS TIME TO GET A BASELINE OF PT LOC FROM HIS EXAM THIS AM. THIS RN ASSESSES PT'S LOC WHILE ON THE PHONE WITH PHYSICIAN. PT IS EASILY AROUSABLE TO TOUCH AND LIGHT PAIN AT THIS TIME. ALYSE STATES THAT PT IS MORE ALERT THAN THIS MORNING AND TO JUST CONTINUE TO MONITOR.
[2020-03-01] MEDS: CLINDAMYCIN 150 MG (CLEOCIN) CAP PO SCH ×5 (00:35→23:45)
[2020-03-01] MEDS: CATHETER FLUSH 10 ML SYR IV SCH ×4 (00:36→20:43)
[2020-03-01] MEDS: RT-ALBUTEROL INHALER HFA (VENTOLIN HFA) 18 GM IH SCH ×4 (04:57→20:51)
[2020-03-01 06:05] LABS: POTASSIUM 4.5 MMOL/L (3.6-5.0)
[2020-03-01 06:06] LABS: CALCIUM 8.5 MG/DL (8.5-10.1)
[2020-03-01 06:11] LABS: CREATININE SERUM 1.18 MG/DL (0.60-1.30)
[2020-03-01] MEDS: ASPIRIN E.C. 81 MG (ECOTRIN) TAB PO SCH (08:04)
--- NOTE | 2020-03-01 08:36 | Cardiology Progress Note ---
Subjective Date Seen by Provider: Mar 01, 2020 Time Seen by Provider: 08:34 Subjective/Events-last exam Patient is more awake today, less confused. No new complaint, still having generalized weakness Review of Systems General: No Chills, No Night Sweats, No Fatigue, No Malaise, No Appetite, No Other HEENT: No Head Aches, No Visual Changes, No Eye Pain, No Ear Pain, No Dysphasia, No Sinus Congestion, No Post Nasal Drip, No Sore Throat, No Other Pulmonary: No Dyspnea, No Cough, No Pleuritic Chest Pain, No Other Cardiovascular: No: Chest Pain, Palpitations, Orthopnea, Paroxysmal Noc. Dyspnea, Edema, Lt Headedness, Other Objective-Cardiology Exam Last Set of Vital Signs Vital Signs 02/29/20 03/01/20 00:20 07:42 Temp 36.8 Pulse 90 Resp 22 B/P (MAP) 149/72 Pulse Ox 93 O2 Delivery Nasal Cannula O2 Flow Rate 2.00 FiO2 36 Capillary Refill : Less Than 3 Seconds I&O Intake and Output 03/01/20 00:00 Intake Total 2210 ml Output Total 1125 ml Balance 1085 ml Intake Oral 1200 ml IV Total 1010 ml Output Urine Total 1125 ml General: Alert, Cooperative, No Acute Distress HEENT: Atraumatic, PERRLA Neck: Supple, No JVD, No Thyromegaly Lungs: Clear to Auscultation, Normal Air Movement Heart: Regular Rate, Normal S1, Normal S2, No Murmurs Abdomen: Normal Bowel Sounds, Soft, No Tenderness, No Hepatosplenomegaly, No Masses Extremities: No Clubbing, No Cyanosis, No Edema, Normal Pulses, No Tenderness/Swelling Skin: No Rashes, No Breakdown, No Significant Lesion Neuro: Normal Speech, Normal Tone, Sensation Intact Psych/Mental Status: Mental Status NL, Mood NL Results Lab Laboratory Tests 03/01/20 05:05 A/P-Cardiology Admission Diagnosis Symptomatic bradycardia Complete heart block Coronary artery disease Hyperlipidemia Assessment/Plan Change in mental status, confusion and agitation, probably secondary to conscious sedation and underlying dementia. He is better today, still have some confusion but overall more awake and communicate better. Generalized weakness and loss of energy, PT were consulted Complete heart block status post dual-chamber pacemaker implantation done on February 28, 2020. Pacemaker dependent. Device check was good today. Will use clindamycin for 5 days due to penicillin allergy Coronary artery disease, history of CABG, no recent cardiac workup, no active chest pain. Currently in complete heart block with left bundle branch block. Continue to monitor Hyperlipidemia, LDL 104, total cholesterol 147. Continue statin treatment Hypertension, monitor blood pressure, avoid beta blockers and calcium shunt blockers today until he had a pacemaker implanted Dementia. Worsened last night probably secondary to staying in the hospital and conscious sedation Okay for discharge from cardiology standpoint and follow up with my office in one week, clindamycin for 5 days Clinical Quality Measures DVT/VTE Risk/Contraindication: Risk Factor Score Per Nursin RFS Level Per Nursing on Admit: 4+=Very High SLADE LOPEZ MD Mar 01, 2020 08:35
[2020-03-01] MEDS ORDERED: CLIN150C17 PO (12:22)
[2020-03-01] MEDS: ENOXAPARIN 40 MG/0.4 ML (LOVENOX) SYR SC SCH (14:36)
--- NOTE | 2020-03-01 16:38 | Progress Note - Hospitalist ---
Subjective HPI/CC On Admission Date Seen by Provider: Mar 01, 2020 Time Seen by Provider: 10:05 Enrique Freire is an 89 year old male with PMH CAD who presented with fatigue. He is very hard of hearing and it is difficult to obtain history. He reports feeling tired. He says he feels sick. He feels nauseous. He denies chest pain. He denies shortness of breath. He denies any other pain. He denies any lightheadedness. Subjective/Events-last exam He is still feeling fatigued. He is sitting in his bedside mary grace. He denies pain. He denies trouble breathing. Objective Exam Vital Signs Vital Signs Date Time Temp Pulse Resp B/P (MAP) Pulse Ox O2 Delivery O2 Flow Rate FiO2 03/01/20 15:50 37.0 74 18 141/82 97 Nasal Cannula 2.00 02/29/20 00:20 36 Capillary Refill : Less Than 3 Seconds General Appearance: No Apparent Distress, WD/WN Respiratory: Lungs Clear, Normal Breath Sounds, No Respiratory Distress Cardiovascular: Regular Rate, Rhythm, No Edema, No Murmur Gastrointestinal: Normal Bowel Sounds, Non Tender, Soft Extremity: Normal Inspection, Non Tender, No Pedal Edema Neurologic/Psychiatric: Alert, Normal Mood/Affect, Motor Weakness Skin: Normal Color, Warm/Dry Results/Procedures Lab Laboratory Tests 03/01/20 05:05 Patient resulted labs reviewed. Imaging: Reviewed Imaging Report Assessment/Plan Assessment and Plan Assess & Plan/Chief Complaint Debility PT/OT May require fdc vs home health on discharge Complete heart block EKG revealed complete heart block Cardiology consulted, appreciate assistance Pacemaker placed 02/27 Completing 5 day course of Clindamycin Delirium, resolved Likely dementia Hearing impaired Advanced age High risk for delirium Avoid delirium triggers Reorient as needed CKD 3b Cr 1.18, appears to be at baseline Continue to monitor CAD Not taking any home meds Started on Aspirin DVT prophylaxis: Lovenox Diagnosis/Problems Diagnosis/Problems (1) Complete heart block Status: Acute (2) 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
[2020-03-01] MEDS: MELATONIN 3 MG TABLET PO SCH (20:43)
[2020-03-02] MEDS: RT-ALBUTEROL INHALER HFA (VENTOLIN HFA) 18 GM IH SCH ×4 (03:27→19:21)
[2020-03-02] MEDS: CATHETER FLUSH 10 ML SYR IV SCH ×3 (05:51→19:50)
[2020-03-02] MEDS: CLINDAMYCIN 150 MG (CLEOCIN) CAP PO SCH ×4 (05:51→23:26)
[2020-03-02 06:21] LABS: CHLORIDE 104 MMOL/L (98-107); POTASSIUM 5.8 MMOL/L (3.6-5.0); SODIUM 134 MMOL/L (135-145)
[2020-03-02 06:22] LABS: CALCIUM 8.1 MG/DL (8.5-10.1)
[2020-03-02 06:23] LABS: GLUCOSE 103 MG/DL (70-105)
[2020-03-02 06:24] LABS: CARBON DIOXIDE 20 MMOL/L (21-32)
[2020-03-02 06:26] LABS: CREATININE SERUM 1.04 MG/DL (0.60-1.30); GFR ESTIMATED > 60
[2020-03-02 06:27] LABS: BUN/CREATININE RATIO 24
[2020-03-02] MEDS: ASPIRIN E.C. 81 MG (ECOTRIN) TAB PO SCH (09:38)
--- NOTE | 2020-03-02 10:03 | Cardiology Progress Note ---
Subjective Date Seen by Provider: Mar 02, 2020 Time Seen by Provider: 10:01 Subjective/Events-last exam Patient is laying down in bed, feeling better today. Still having generalized fatigue and loss of energy Review of Systems General: No Chills, No Night Sweats; Fatigue, Malaise; No Appetite, No Other HEENT: No Head Aches, No Visual Changes, No Eye Pain, No Ear Pain, No Dysphasia, No Sinus Congestion, No Post Nasal Drip, No Sore Throat, No Other Pulmonary: No Dyspnea, No Cough, No Pleuritic Chest Pain, No Other Cardiovascular: No: Chest Pain, Palpitations, Orthopnea, Paroxysmal Noc. Dyspnea, Edema, Lt Headedness, Other Objective-Cardiology Exam Last Set of Vital Signs Vital Signs 02/29/20 03/02/20 00:20 08:00 Temp 36.6 Pulse 86 Resp 16 B/P (MAP) 132/80 Pulse Ox 93 O2 Delivery Nasal Cannula O2 Flow Rate 2.00 FiO2 36 Capillary Refill : Less Than 3 Seconds I&O Intake and Output 03/02/20 00:00 Intake Total 1760 ml Output Total 1655 ml Balance 105 ml Intake Oral 1760 ml Output Urine Total 1625 ml Post Void Residual 30 ml # Voids 1 General: Alert, Cooperative, No Acute Distress HEENT: Atraumatic, PERRLA Neck: Supple, No JVD, No Thyromegaly Lungs: Clear to Auscultation, Normal Air Movement Heart: Regular Rate, Normal S1, Normal S2, No Murmurs Abdomen: Normal Bowel Sounds, Soft, No Tenderness, No Hepatosplenomegaly, No Masses Extremities: No Clubbing, No Cyanosis, No Edema, Normal Pulses, No Tenderness/Swelling Skin: No Rashes, No Breakdown, No Significant Lesion Neuro: Normal Speech, Normal Tone, Sensation Intact Psych/Mental Status: Mental Status NL, Mood NL Results Lab Laboratory Tests 03/02/20 05:49 A/P-Cardiology Admission Diagnosis Symptomatic bradycardia Complete heart block Coronary artery disease Hyperlipidemia Assessment/Plan Change in mental status, delirium, better today. Continue to monitor Generalized weakness, debility. Heart rate is better. 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 Pacemaker dependent. On clindamycin day number 3 / 5 Coronary artery disease, history of CABG, no recent cardiac workup, no active chest pain. Currently in complete heart block with left bundle branch block. Continue to monitor Hyperlipidemia, LDL 104, total cholesterol 147. Continue statin treatment Hypertension, monitor blood pressure, avoid beta blockers and calcium shunt blockers today until he had a pacemaker implanted Dementia. Worsened last night probably secondary to staying in the hospital and conscious sedation Okay for discharge from cardiology standpoint and follow up with my office in one week Clinical Quality Measures DVT/VTE Risk/Contraindication: Risk Factor Score Per Nursin RFS Level Per Nursing on Admit: 4+=Very High SLADE LOPEZ MD Mar 02, 2020 10:02 am
--- NOTE | 2020-03-02 10:22 | Physical Therapy Evaluation ---
PT Evaluation-General Medical Diagnosis Admission Date Feb 27, 2020 at 11:35 Medical Diagnosis: complete heart block/weakness Onset Date: Feb 27, 2020 Therapy Diagnosis Therapy Diagnosis: generalized weakness/debility Precautions Precautions/Isolations: Fall Prevention, Standard Precautions Referral Physician: Lorraine Reason for Referral: Evaluation/Treatment Medical History Pertinent Medical History: CABG, CAD, Renal Insufficiency Additional Medical History hypoxia (O2 dependent PLOF) Current History EMS secondary to epigastric pain for a few days and weakness (s/p pacemaker 02/28/20) Reviewed History: Yes Social History Home: Single Level Current Living Status: Other Family Prior Prior Level of Function SCALE: Activities may be completed with or without assistive devices. 4-Njvpxxiicm-nyppplv completes the activity by him/herself with no assistance from a helper. 5-Set-up or Clean-up Assistance-helper sets up or cleans up; patient completes activity. [place] assists only prior to or following the activity. 4-Supervision or Touching Assistance-helper provides verbal cues and/or touching/steadying and/or contact guard assistance as patient completes activity. Assistance may be provided throughout the activity or intermittently. 3-Partial/Moderate Assistance-helper does LESS THAN HALF the effort. [place] lifts, holds or supports trunk or limbs, but provides less than half the effort. 2-Substantial/Maximal Assistance-helper does MORE THAN HALF the effort. [place] lifts or holds trunk or limbs and provides more than half the effort. 8-Aydsnlref-gtshgf does ALL the effort. Patient does none of the effort to complete the activity. Or, the assistance of 2 or more helpers is required for the patient to complete the activity. If activity was not attempted, code reason: 7-Patient Refused. 9-Not Applicable-not attempted and the patient did not perform the activity before the current illness, exacerbation or injury. 10-Not Attempted due to Environmental Limitations-(lack of equipment, weather restraints, etc.). 88-Not Attempted due to Medical Conditions or Safety Concerns. Bed Mobility: 5 Transfers (B,C,W/C): 5 Gait: 5 Indoor Mobility (Ambulation): Needed Some Help Prior Devices Use: Walker PT Evaluation-Current Subjective Patient currently has a sitter in room due to confusion/dementia. Does wake to PT and agree to up to chair. Objective Patient Orientation: Confused Attachments: Oxygen ROM/Strength ROM Lower Extremities bilateral LE WFL Strength Lower Extremities 3+/5 grossly bilateral LE (unable to formally test due to confusion) Integumentary/Posture Integumentary refer to nursing notes Bladder Incontinence: Yes Posture WFL Neuromuscular (Tone, Coordination, Reflexes) slightly diminished coordination due to weakness/confusion Sensory Vision: Wears Glasses Hearing: Hearing Aid/Aides Transfers Lying to Sitting/Side of Bed(Q: 3 Sit to Stand (QC): 2 Chair/Urm-rf-Yrpcj Xfer(QC): 2 Gait Does the Patient Walk?: No and Walking Goal IS indicated Balance Sitting Static: Normal Sitting Dynamic: Normal Standing Static: Fair Standing Dynamic: Fair Assessment/Needs 89 y.o. male, will benefit from skilled PT to address functional strength and mobility to improve current LOF to safely return to home with family or care facility at maximum LOF. 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 [employer] Goals Retirement Goals PT Retirement Goals Time Frame: Mar 14, 2020 Roll Left & Right (QC): 5 Sit to Lying (QC): 5 Lying-Sitting on Side/Bed(QC): 5 Sit to Stand (QC): 5 Chair/Kjb-gg-Iejpx Xfer(QC): 5 Toilet Transfer (QC): 5 Does the Patient Walk: No and Walking Goal IS indicated Walk 10 feet (QC): 4 Walk 50ft with 2 Turns (QC): 4 PT Plan Problem List Problem List: Activity Tolerance, Functional Strength, Safety, Balance, Gait, Transfer, Bed Mobility Treatment/Plan Treatment Plan: Continue Plan of Care Treatment Plan: Bed Mobility, Education, Functional Activity Tone, Functional Strength, Gait, Safety, Therapeutic Exercise, Transfers Treatment Duration: Mar 14, 2020 Frequency: 6 times per week Estimated Hrs Per Day: .5 hour per day Time/GCodes Time In: 926 Time Out: 936 Total Billed Treatment Time: 10 Total Billed Treatment 1 visit EVModC 10 min REN MAGANA PT Mar 02, 2020 10:22
--- NOTE | 2020-03-02 10:47 | Occupational Therapy Eval ---
OT Evaluation-General/PLF Medical Diagnosis Admission Date Feb 27, 2020 at 11:35 Medical Diagnosis: complete heart block/weakness Onset Date: Feb 27, 2020 Therapy Diagnosis Therapy Diagnosis: Decreased ADL status Precautions Precautions/Isolations: Fall Prevention, Standard Precautions Referral Physician: Lorraine Referral Reason: Activity Tolerance, Self Care, Evaluation/Treatment, Strengthening/ROM Medical History Pertinent Medical History: CABG, CAD, Renal Insufficiency Additional Medical History Third degree heart block with pacemaker placement. Pt has 1:1 sitter present in room. Current History CAD, [place], obesity, HTN, dementia Reviewed History: Yes Social History Home: Single Level Current Living Status: Other Family (per PT, though pt states lives alone.) ADL-Prior Level of Function SCALE: Activities may be completed with or without assistive devices. 3-Bbnluvgcva-uykfoxe completes the activity by him/herself with no assistance from a helper. 5-Set-up or Clean-up Assistance-helper sets up or cleans up; patient completes activity. [place] assists only prior to or following the activity. 4-Supervision or Touching Assistance-helper provides verbal cues and/or touching/steadying and/or contact guard assistance as patient completes activity . Assistance may be provided throughout the activity or intermittently. 3-Partial/Moderate Assistance-helper does LESS THAN HALF the effort. [place] lifts, holds or supports trunk or limbs, but provides less than half the effort. 2-Substantial/Maximal Assistance-helper does MORE THAN HALF the effort. [place] lifts or holds trunk or limbs and provides more than half the effort. 6-Ctaimqphw-mquigm does ALL the effort. Patient does none of the effort to complete the activity. Or, the assistance of 2 or more helpers is required for the patient to complete the activity. If activity was not attempted, code reason: 7-Patient Refused. 9-Not Applicable-not attempted and the patient did not perform the activity before the current illness, exacerbation or injury. 10-Not Attempted due to Environmental Limitations-(lack of equipment, weather restraints, etc.). 88-Not Attempted due to Medical Conditions or Safety Concerns. ADL PLOF Comments Unable to gather full PLOF. Pt states lives in home alone, utilizes golf cart to go from place to place, states uses walker inside. Self Care: Unknown Functional Cognition: Unknown DME/Equipment Comments walker(s), cane Drive Self: Yes (golf cart.) OT Current Status Subjective Pt in chair upon entry. Live sitter present. Pt agrees to tx. Pt is confused, requiring increased redirection through session and very [place], requiring max volume and repetition of sentences. Pt very pleasant. Mental Status/Objective Patient Orientation: Person Current Glasses/Contacts: Yes Hearing Aids: Yes Dentures/Partials: Yes Hand Dominance: Right Upper Extremity ROM R tested only due to pacemaker precautions: RWFL Upper Extremity Coordination R/ L WFL Upper Extremity Sensation WFL Upper Extremity Strength R WFL ADL-Treatment Oral Hygiene (QC): 3 (min A to place toothpaste/ manipulate past cap) Shower/Bathe Self (QC): 1 (Pt able to wash face, requires assist for thoroughness due to eye crust limiting eye opening. Per clinical judgement, pt will require TD (Ax2) for safe bathing/ washing bottom in stance.) On/Off Footwear (QC): 1 (Pt attempts with LEs brought to floor. Unable to reach at this time.) Other Treatments Pt agrees to tx. Pt states lives alone, does use walker inside, though uses golf cart to go around outside. Pt's LUE hanging by side off of recliner. Pt does not know why pain in L arm. Pt is educated on pacemaker placement and educated on precautions. Pt is asked to remember 2 precautions. Pt unable to repeat immediately after education. Pt requires cues to keep eyes open. States crust limits opening and is also dizzy. Pt states "always dizzy." Pt completes face washing and oral care as outlined, all tasks require increased time. Pt is positioned in chair for L arm support, all needs met, call light in reach, 1:1 sitter comes in after OT leaves. Education OT Patient Education: Correct positioning, Purpose of tx/functional activities, Reviewed precautions Teaching Recipient: Patient Teaching Methods: Demonstration, Discussion Response to Teaching: Verbalize Understanding, Return Demonstration OT Dental Secretary Goals Dental Secretary Goals Time Frame: Mar 09, 2020 Eating (QC): 6 Oral Hygiene (QC): 6 Toileting Hygiene (QC): 3 Shower/Bathe Self (QC): 2 Upper Body Dressing (QC): 3 Lower Body Dressing (QC): 2 On/Off Footwear (QC): 3 Additional Goals: 1-Demonstrate ADL Tasks, 2-Verbalize Understanding, 3- ImproveStrength/Tone 1=Demonstrate adherence to instructed precautions during ADL tasks. 2=Patient will verbalize/demonstrate understanding of assistive devices/modifications for ADL. 3=Patient will improve strength/tolerance for activity to enable patient to perform ADL's. OT Education/Plan Problem List/Assessment Assessment: Decreased Activ Tolerance, Decreased Safety Aware, Decreased UE Strength, Dependent Transfers, Impaired Cognition, Impaired I ADL's, Impaired Self-Care Skills Discharge Recommendations Plan/Recommendations: Continue POC Therapy Discharge Recommendati: 24 Hour Supervision, Post Acute OT Treatment Plan/Plan of Care Treatment,Training & Education: Yes Patient would benefit from OT for education, treatment and training to promote independence in ADL's, mobility, safety and/or upper extremity function for ADL's. Plan of Care: ADL Retraining, Caregiver Training, Cognitive Retraining, Concurrent Therapy, Functional Mobility, UE Funct Exercise/Act, UE Neuromus Re- Ed/Coord Treatment Duration: Mar 09, 2020 Frequency: 5 times per week Estimated Hrs Per Day: .25 hour per day Agreement: Yes Rehab Potential: Guarded Time/GCodes Start Time: 10:10 Stop Time: 10:33 Total Time Billed (hr/min): 23 Billed Treatment Time 1, FREDDIE, BARRY THURMAN OTR Mar 02, 2020 10:47
--- NOTE | 2020-03-02 11:11 | NUR ---
CM/SS visited with patient for discharge planning. The patient was sitting up in his chair resting with sitter at bedside. The patient is easily aroused from his sleep. He is pleasant and alert. The patient does have some confusion. Plan: Patient will discharge to a skilled facility. Home: The patient lives at home with his adult son Brendon. Brendon reports that at this time he is working at [employer] for 12 hour shifts and would not be home. He states that the patient has progressively gotten worse physically and mentally. SNF: CM/SS spoke to the patient regarding discharge plans for home. The patient was pleasantly confused. CM/SS contacted Brendon to discuss placement vs home health at time of discharge. He reports that he needs the patient to go skilled due to not being able to meet his needs. The patient's son Brendon requested this sw sent a referral to [facility]. CM/SS sent a referral to Malissa at the facility. Awaiting acceptance/denial. DPOA: Brendon reports that him and Vonnie Barroso at the DPOA. CM/SS will continue to follow.
[2020-03-02] MEDS ORDERED: MELATONIN 3 MG TABLET PO PRN (12:45)
[2020-03-02] MEDS ORDERED: BENZONATATE 100 MG (TESSALON) CAPSULE PO PRN (12:45)
[2020-03-02] MEDS ORDERED: ONDANSETRON 4 MG/2 ML (SDV) Z0FRAN IV PRN (12:45)
[2020-03-02] MEDS ORDERED: ANTACID SUSP 30 ML UDC (MYLANTA) PO PRN (12:45)
[2020-03-02] MEDS ORDERED: MILK OF MAGNESIA 400 MG/5 ML 30 ML UDC PO PRN (12:45)
[2020-03-02] MEDS ORDERED: ACETAMINOPHEN 325 MG TABLET PO PRN (12:45)
[2020-03-02] MEDS ORDERED: risperiDONE 0.25 MG (RisperDAL) TAB PO ONE (15:00)
[2020-03-02] MEDS: ENOXAPARIN 40 MG/0.4 ML (LOVENOX) SYR SC SCH (15:31)
--- NOTE | 2020-03-02 15:43 | NUR ---
"RD ASSESSMENT PMHx: CAD; renal failure; PT INTERACTION: Pt was awake and pleasant during nutrition assessment. Note pt is hard of hearing and it was difficult to understand him at times. Pt states current appetite is okay. Note avg PO intake <25% meals, per chart review. Pt states no issues with nausea, vomiting, constipation, or diarrhea. Note no BM has been recorded, and pt not currently on bowel regimen per chart review. Pt states some recent wt loss, but stated it was a little. Note unable to determine recent wt hx, per chart review. ABNORMAL NUTRITION-RELATED LAB VALUES LOW: Na 134; Ca 8.1; HIGH: K 5.8; BUN 25; Est. kcal needs: 0131-9620 kcal | 20-25 kcal/kg Est. Pro needs: 86-108 g Pro | 0.8-1.0 g Pro/kg PES STATEMENT: Inadequate oral intake (NI-2.1) related to loss of appetite as evidenced by pt interview, and avg PO intake <25% meals. INTERVENTION: Continue with current diet order of 2000mg Na diet. Add Ensure Enlive (vary) to meals TID, for increased kcal intake. Provides 350 kcal and 20 g Pro per serving. Encouraged pt to eat when able. Will continue to follow and reassess as pt needs, intake, and status change. Estuardo Leonard MS RD LD [phone] cell"
[2020-03-02] MEDS ORDERED: risperiDONE 0.25 MG (RisperDAL) TAB PO SCH (21:00)
[2020-03-03] MEDS: RT-ALBUTEROL INHALER HFA (VENTOLIN HFA) 18 GM IH SCH ×2 (02:57→08:30)
[2020-03-03 05:23] LABS: CHLORIDE 101 MMOL/L (98-107); POTASSIUM 3.9 MMOL/L (3.6-5.0); SODIUM 135 MMOL/L (135-145)
[2020-03-03 05:24] LABS: CALCIUM 8.4 MG/DL (8.5-10.1); GLUCOSE 105 MG/DL (70-105)
[2020-03-03 05:26] LABS: CARBON DIOXIDE 24 MMOL/L (21-32)
[2020-03-03 05:28] LABS: CREATININE SERUM 0.91 MG/DL (0.60-1.30); GFR ESTIMATED > 60
[2020-03-03 05:29] LABS: BUN/CREATININE RATIO 22
[2020-03-03] MEDS: CLINDAMYCIN 150 MG (CLEOCIN) CAP PO SCH ×2 (06:29→12:13)
[2020-03-03] MEDS: CATHETER FLUSH 10 ML SYR IV SCH (06:30)
--- NOTE | 2020-03-03 09:57 | Discharge Summary ---
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 (3) CAD (coronary artery disease) Status: Chronic (4) Hearing impaired Status: Chronic (5) Advanced age Status: Chronic (6) Delirium due to multiple etiologies Status: Resolved (7) Debility Status: Acute Discharge Summary Discharge Physical Exam Allergies: Coded Allergies: Penicillins (Verified Allergy, Unknown, 02/27/20) Vitals & I&Os Vital Signs Date Time Temp Pulse Resp B/P (MAP) Pulse Ox O2 Delivery O2 Flow Rate FiO2 03/03/20 08:30 93 Nasal Cannula 2.00 03/03/20 08:00 36.1 85 24 132/82 02/29/20 00:20 36 Hospital Course Labs (last 24 hrs) Laboratory Tests 03/03/20 04:50: Sodium Level 135, Potassium Level 3.9, Chloride Level 101, Carbon Dioxide Level 24, Anion Gap 10, Blood Urea Nitrogen 20H, Creatinine 0.91, Estimat Glomerular Filtration Rate > 60, BUN/Creatinine Ratio 22, Glucose Level 105, Calcium Level 8.4L Microbiology 02/27/20 MRSA Screen - Final, Complete MRSA not isolated Patient resulted labs reviewed. Pending Labs Laboratory Tests 03/03/20 04:50: Sodium Level 135, Potassium Level 3.9, Chloride Level 101, Carbon Dioxide Level 24, Anion Gap 10, Blood Urea Nitrogen 20, Creatinine 0.91, Estimat Glomerular Filtration Rate > 60, BUN/Creatinine Ratio 22, Glucose Level 105, Calcium Level 8.4 Imaging: Reviewed Imaging Report Discharge Home Medications: Active Scripts Active Clindamycin HCl 150 Mg Capsule 150 Mg PO Q6HR 4 Days Reported Calcium + D Soft Chewable Tab (Ca Carbonate/Vitamin D3/Vit K) 1 Each Tab.chew 1 Each PO DAILY Multivitamin 1 Each Tablet 1 Each PO DAILY Tylenol Arthritis (Acetaminophen) 650 Mg Tablet.er 1,300 Mg PO BID TAKES 2 (650MG) TABS Loratadine 10 Mg Tablet 10 Mg PO DAILY Furosemide 20 Mg Tablet 20 Mg PO DAILY Pravastatin Sodium 80 Mg Tablet 80 Mg PO DAILY Clopidogrel (Clopidogrel Bisulfate) 75 Mg Tablet 75 Mg PO DAILY Sertraline HCl 25 Mg Tablet 25 Mg PO HS Omeprazole 40 Mg Capsule.dr 40 Mg PO DAILY Instructions to patient/family Please see electronic discharge instructions given to patient. Clinical Quality Measures DVT/VTE Risk/Contraindication: Risk Factor Score Per Nursin RFS Level Per Nursing on Admit: 4+=Very High CRIS FISHER MD Mar 03, 2020 09:57
--- NOTE | 2020-03-03 09:58 | Discharge Inst-Simple/Standard ---
Discharge Inst-Standard Patient Instructions/Follow Up Plan of Care/Instructions/FU: Please continue to take your medications as written. Please follow up with your primary care doctor to follow up this hospital stay. Activity as Tolerated: Yes Discharge Diet: Low Sodium Diet Return to The Hospital For: Chest pain, shortness of breath, fatigue, fever, confusion, if you feel you are getting worse. Planned Outpatient Orders/Ref. Pneu Vac Indicated: Yes CRIS FISHER MD Mar 03, 2020 09:58
[2020-03-03] MEDS: ASPIRIN E.C. 81 MG (ECOTRIN) TAB PO SCH (10:20)
--- NOTE | 2020-03-03 10:20 | Physical Therapy Daily Note ---
PT Daily Note-Current Subjective Patient is in bed asleep. Does wake to participate with therapy. Mental Status Patient Orientation: Confused Attachments: Oxygen Transfers SCALE: Activities may be completed with or without assistive devices. 3-Njqpuojakt-awvmzcb completes the activity by him/herself with no assistance from a helper. 5-Set-up or Clean-up Assistance-helper sets up or cleans up; patient completes activity. [place] assists only prior to or following the activity. 4-Supervision or Touching Assistance-helper provides verbal cues and/or touching/steadying and/or contact guard assistance as patient completes activity. Assistance may be provided throughout the activity or intermittently. 3-Partial/Moderate Assistance-helper does LESS THAN HALF the effort. [place] lifts, holds or supports trunk or limbs, but provides less than half the effort. 2-Substantial/Maximal Assistance-helper does MORE THAN HALF the effort. [place] lifts or holds trunk or limbs and provides more than half the effort. 3-Anpswkdkk-fpaayn does ALL the effort. Patient does none of the effort to complete the activity. Or, the assistance of 2 or more helpers is required for the patient to complete the activity. If activity was not attempted, code reason: 7-Patient Refused. 9-Not Applicable-not attempted and the patient did not perform the activity before the current illness, exacerbation or injury. 10-Not Attempted due to Environmental Limitations-(lack of equipment, weather restraints, etc.). 88-Not Attempted due to Medical Conditions or Safety Concerns. Lying to Sitting/Side of Bed(Q: 2 Sit to Stand (QC): 2 Chair/Dzx-vk-Kbuwp Xfer(QC): 2 Gait Training Does the Patient Walk?: No and Walking Goal IS indicated Distance: 5' Gait Persons Needed: 2 Gait Assistive Device: FWW NBOS, shuffle gait Assessment Patient is up in recliner with LE's elevated and chair alarm activated. Patient to transfer to [place] on this date per report. PT Yield Engineer Goals Custodial Goals PT Custodial Goals Time Frame: Mar 14, 2020 Roll Left & Right (QC): 5 Sit to Lying (QC): 5 Lying-Sitting on Side/Bed(QC): 5 Sit to Stand (QC): 5 Chair/Vcq-kr-Cqqdo Xfer(QC): 5 Toilet Transfer (QC): 5 Does the Patient Walk: No and Walking Goal IS indicated Walk 10 feet (QC): 4 Walk 50ft with 2 Turns (QC): 4 PT Plan Treatment/Plan Treatment Plan: Continue Plan of Care Treatment Plan: Bed Mobility, Education, Functional Activity Tone, Functional Strength, Gait, Safety, Therapeutic Exercise, Transfers Treatment Duration: Mar 14, 2020 Frequency: 6 times per week Estimated Hrs Per Day: .5 hour per day Time/GCodes Time In: 957 Time Out: 1007 Total Billed Treatment Time: 10 Total Billed Treatment 1 visit FA 10 min REN MAGANA PT Mar 03, 2020 10:20
--- NOTE | 2020-03-03 10:32 | NUR ---
CM/SS finalized discharge planning. Plan: The patient will discharge to [facility] today 03/03/20. Transportation is set up for 1:00 p.m. VCV: CM/SS contacted Malissa at the [facility] to discuss referral. She reports the patient has been accepted for today. Transportation was arranged for 1:00 p.m. CM/SS will send finalized skilled discharge orders when available. The patient's nurse and physician have been notified of discharge plan. DPOA: CM/SS attempted to contact the patient's son and DPOA Brendon to inform him of patient's acceptance. No answer, voice mail left with call back number. CM/SS will attempt to call the patient' s son again. No further needs.
--- NOTE | 2020-03-03 11:38 | Discharge Inst-Skilled Nursing ---
Discharge Inst-Skilled NF Chief Complaint Enrique Freire is an 89 year old male with PMH CAD who presented with fatigue. He is very hard of hearing and it is difficult to obtain history. He reports feeling tired. He says he feels sick. He feels nauseous. He denies chest pain. He denies shortness of breath. He denies any other pain. He denies any light headedness. Consult/Follow Up/Orders Follow Up Appt.: Please follow up with your PCP in the next week to follow up this hospital stay. Skilled NF Admit to: [facility] Certification ([facility]) I certify that [facility] services are required to be given on an inpatient basis because of the above named patient's need for assisted care on a continuing basis for the conditions(s) for which he/she was receiving inpatient hospital services prior to his/her transfer to the [facility]. Senior Living Facility Order: Nursing Services Oxygen Delivery Method: Nasal Cannula Oxygen Flow Rate L/min (Range): 2lpm Discharge Diet: Low Sodium Diet Daily Activity as Tolerated: Yes Resuscitation Status: Do Not Resuscitate New & Resume Previous Orders Cris Lennon Mar 03, 2020 11:37 Pneu Vac Indicated: Yes CRIS LENNON MD Mar 03, 2020 11:38
--- NOTE | 2020-03-03 13:13 | Discharge Inst-Skilled Nursing ---
Discharge Inst-Skilled NF Chief Complaint Enrique Freire is an 89 year old male with PMH CAD who presented with fatigue. He is very hard of hearing and it is difficult to obtain history. He reports feeling tired. He says he feels sick. He feels nauseous. He denies chest pain. He denies shortness of breath. He denies any other pain. He denies any light headedness. Consult/Follow Up/Orders Skilled NF Admit to: [facility] Certification ([facility]) I certify that SNF services are required to be given on an inpatient basis because of the above named patient's need for senior care care on a continuing basis for the conditions(s) for which he/she was receiving inpatient hospital services prior to his/her transfer to the SNF. Snf Facility Order: Nursing Services, Director Of Restaurant-Evaluate & Treat, Physical Therapy-Evaluate & Treat Oxygen Delivery Method: Nasal Cannula Oxygen Flow Rate L/min (Range): 2lpm Discharge Diet: Low Sodium Diet Daily Activity as Tolerated: Yes Resuscitation Status: Do Not Resuscitate New & Resume Previous Orders Cris Lennon Mar 03, 2020 13:12 Pneu Vac Indicated: Yes CRIS LENNON MD Mar 03, 2020 13:13
[2020-03-03 13:55] VITALS: BP 132/82
--- NOTE | 2020-03-03 13:55 | NUR ---
GRAY MCGILL discharged to [facility]. REPORT GIVEN TO [facility]. GRAY MCGILL belongings sent with pt. Skin dry and intact; no breakdown noted. Vital signs are stable at time of discharge. Condition is stable at time of discharge. Discharge instructions and copies of H&P, discharge summary, physician's order, lab reports, consultation reports, other dictated reports, diagnostic imaging reports, Advance Directive, eMAR, vital signs, intake and output sent with pt. Patient discharged from 1 on at 1355. GRAY MCGILL left floor via wc, accompanied by staff. GRAY MCGILL and family/DPOA notified and verbalize understanding of discharge to [facility].
--- NOTE | 2020-03-03 16:26 | Physician Query Clarification ---
"Physician Query-General Query to Physician: The medical record reflects the following clinical scenario: History/Risk factors: Chronic renal failure Clinical Findings: Admission Cr 1.76, 03/03 Cr 0.91, nausea, recent decreased oral intake, weakness, Treatment: IVFs, I and O, Lab Monitoring, Increase oral intake encouraged Question: What condition best reflects the above clinical scenario? Please document response in the Progress notes or Discharge Summary. 1. 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 Chronic Kidney Disease 3b (as currently documented) 3. Other , with explanation of the clinical findings 4. Clinically undetermined, no explanation for the clinical findings Please remember a lack of response to the above will prompt a phone page by CDI/coding staff In responding to this query, please exercise your independent professional judgment. The purpose of this communication is to more accurately reflect the complexity of your patients condition. The fact that a question is asked does not imply that any particular answer is desired or expected. Thank you for timely response to this clarification. Jenny Moreland, MSN, RN RN Specialist-Clinical Doc Improvement CD -Health Info Mgmt Operations [address] [facility] t: [phone] | f: [phone] If you are unable to reach me at my extension, I may be working from home. Please contact me at [phone] PHYSICIAN RESPONSE: Based on the clinical findings in the record, please respond to the query above on this document as an addendum. Physician Response: Physician Response 1 If you have questions please contact: Flanging Machine Operator: Ext: Thank you for your time and cooperation. Clinical Rubber Covering Machine Operator/Flanging Machine Operator This is a permanent part of the medical record JENNY MORELAND Mar 03, 2020 16:26 CRIS FISHER MD Mar 04, 2020 12:18"
== END 2020-03-03 13:55 | DRG 243 ==
LOC: EDUNIT# 09:09 → ER 09:11 → ICU 11:35 → 4TH 02-29 16:23
PROVIDERS: ADMIT Internal Medicine; ATTEND Internal Medicine
PROC: 0JH606Z Insertion of Pacemaker, Dual Chamber into Chest Subcutaneous Tissue and Fascia, Open Approach (ICD-10-PCS; principal; 2020-02-28)
PROC: 02H63JZ Insertion of Pacemaker Lead into Right Atrium, Percutaneous Approach (ICD-10-PCS; 2020-02-28)
PROC: 02HK3JZ Insertion of Pacemaker Lead into Right Ventricle, Percutaneous Approach (ICD-10-PCS; 2020-02-28)
DX: I44.2 Atrioventricular block, complete (principal); N17.9 Acute kidney failure, unspecified; R00.1 Bradycardia, unspecified; I25.10 Atherosclerotic heart disease of native coronary artery without angina pectoris; I44.7 Left bundle-branch block, unspecified; E78.5 Hyperlipidemia, unspecified; F03.90 Unspecified dementia, unspecified severity, without behavioral disturbance, psychotic disturbance, mood disturbance, and anxiety; N18.32 Chronic kidney disease, stage 3b; Z66 Do not resuscitate; Z20.828 Contact with and (suspected) exposure to other viral communicable diseases; H91.90 Unspecified hearing loss, unspecified ear; E66.9 Obesity, unspecified; R09.02 Hypoxemia; R10.13 Epigastric pain; R11.2 Nausea with vomiting, unspecified; Z99.81 Dependence on supplemental oxygen; Z95.1 Presence of aortocoronary bypass graft; Z87.891 Personal history of nicotine dependence; Z68.30 Body mass index [BMI] 30.0-30.9, adult; Z91.81 History of falling; Z23 Encounter for immunization
CPT/HCPCS: 33208; 36415; 71045; 75820; 80048; 80053; 80061; 81000; 83690; 83735; 83874; 83880; 84443; 84484; 85025; 85027; 85610; 85730; 87081; 87635; 90662; 93005; 93041; 94640; 94760

== ENCOUNTER 2020-11-04 15:59 | Emergency (ER) | payer MEDICARE, MEDICAID ==
[~2020-11-04] VITALS: Ht 193 cm; Wt 106.6 kg
[~2020-11-04 15:59] MED LIST: ACET-2650 PO; CA C1TAB75 PO; CLIN150C18 PO; CLOP75TA28 PO; FURO20TA4 PO; LORA10TA7 PO; MULT-1136 PO; OMEP40CA6 PO; PRAV80TA2 PO; SERT-412 PO
[2020-11-04 16:17] VITALS: BP_SYST 107; BP_SYST 113; BP_SYST 114; BP_DIAS 42; BP_DIAS 59; BP_DIAS 62
[2020-11-04] MEDS ORDERED: LACTATED RINGERS 1,000 ML IV ONE ×2 (16:23→16:30)
--- NOTE | 2020-11-04 16:27 | ED General ---
General Stated Complaint: UTI/ TIA Source of Information: Patient Exam Limitations: No Limitations History of Present Illness Date Seen by Provider: Nov 04, 2020 Time Seen by Provider: 16:05 Initial Comments Patient to the ER by private conveyance with his te chief complaint that for the past week he has noticed the patient has been slowing down being more weak. He also noticed 15 pound weight loss over the past couple months. He has been declining and so his primary care provider in [facility] prescribed donepezil about a month ago. The rest of his medications of been stable for years. His about a year ago and he has been staying with his stepson. He has had poor appetite and fluid intake for the past week or so. He says he coughs occasionally with some clear sputum but nothing more than usual. He lives on about 2 to 3 L of oxygen per nasal cannula at baseline with COPD. He quit smoking many years ago. He does not drink. He is not noticing any increase in his swelling around his middle or hands and feet. He is not diabetic and has a blood sugar of 120s per nursing staff. He has a history of coronary disease and recently had a pacemaker placed late last year by local cardiology. Allergies and Home Medications Allergies Coded Allergies: Penicillins (Verified Allergy, Unknown, 02/27/20) Home Medications Acetaminophen 650 Mg Tablet.er, 1,300 MG PO BID, (Reported) TAKES 2 (650MG) TABS Ca Carbonate/Vitamin D3/Vit K 1 Each Tab.chew, 1 EACH PO DAILY, (Reported) Clindamycin HCl 150 Mg Capsule, 150 MG PO Q6HR Prescribed by: ARLEY CULLEN on 03/01/20 1222 Clopidogrel Bisulfate 75 Mg Tablet, 75 MG PO DAILY, (Reported) Furosemide 20 Mg Tablet, 20 MG PO DAILY, (Reported) Loratadine 10 Mg Tablet, 10 MG PO DAILY, (Reported) Multivitamin 1 Each Tablet, 1 EACH PO DAILY, (Reported) Omeprazole 40 Mg Capsule.dr, 40 MG PO DAILY, (Reported) Pravastatin Sodium 80 Mg Tablet, 80 MG PO DAILY, (Reported) Sertraline HCl 25 Mg Tablet, 25 MG PO HS, (Reported) Patient Home Medication List Home Medication List Reviewed: Yes Review of Systems Review of Systems Constitutional: No chills, No diaphoresis EENTM: hearing loss; No ear pain, No blurred vision, No double vision Respiratory: cough (occ chronic), phlegm (Occasional clear phlegm); No short of breath, No wheezing Cardiovascular: No chest pain, No edema Gastrointestinal: No abdominal pain, No nausea, No vomiting Genitourinary: No discharge, No dysuria Musculoskeletal: No back pain, No joint pain All Other Systems Reviewed Negative Unless Noted: Yes Past Kvyhnip-Apzyvv-Dhxhez Hx Patient Social History Tobacco Use?: No Use of E-Cig and/or Vaping dev: No Substance use?: No Past Medical History Surgeries: Yes CABG, Orthopedic Respiratory: Yes (Chronic hypoxia, uses nasal cannula) Emphysema Cardiac: Yes Coronary Artery Disease Neurological: No Genitourinary: Yes ("Urinary problems") Renal Failure Gastrointestinal: No Musculoskeletal: No Endocrine: No HEENT: No Cancer: No Psychosocial: No Integumentary: No Physical Exam Vital Signs Vital Signs - First Documented 11/04/20 16:05 Temp 36.6 Pulse 70 Resp 18 B/P (MAP) 113/59 (77) Pulse Ox 95 O2 Delivery Nasal Cannula O2 Flow Rate 2.00 Capillary Refill : Height, Weight, BMI Height: '" Weight: lbs. oz. kg; 30.00 BMI Method: General Appearance: No Apparent Distress, Chronically ill Eyes: Bilateral Eye Normal Inspection, Bilateral Eye PERRL, Bilateral Eye EOMI HEENT: PERRL/EOMI, TMs Normal, Normal ENT Inspection; No Pharynx Normal, No Moist Mucous Membranes Neck: Full Range of Motion, Normal Inspection, Non Tender Respiratory: Lungs Clear, Normal Breath Sounds, No Accessory Muscle Use, No Respiratory Distress Cardiovascular: Regular Rate, Rhythm, No Edema, Normal Peripheral Pulses Gastrointestinal: Normal Bowel Sounds, Non Tender, Soft Extremity: Normal Capillary Refill, Normal Inspection, Non Tender, No Calf Tenderness, No Pedal Edema Neurologic/Psychiatric: Alert, Oriented x3, Normal Mood/Affect, architecture manager II-XII Norm as Tested, Motor Weakness (4-5 all 4 extremities), Other (NIH 0 points.) Skin: Normal Color, Warm/Dry Progress/Results/Core Measures Suspected Sepsis SIRS Temperature: Pulse: Respiratory Rate: Laboratory Tests 11/04/20 16:10: White Blood Count 5.3 Blood Pressure / Mean: Laboratory Tests 11/04/20 16:10: Creatinine 1.58H, Platelet Count 180, Total Bilirubin 0.4 Results/Orders Lab Results Laboratory Tests Test 11/04/20 16:08 11/04/20 16:10 11/04/20 17:21 Range/Units Glucometer 121 H 70-110 MG/DL White Blood Count 5.3 4.3-11.0 10^3/uL Red Blood Count 3.91 L 4.30-5.52 10^6/uL Hemoglobin 12.3 L 13.3-17.7 g/dL Hematocrit 37 L 40-54 % Mean Corpuscular Volume 94 80-99 fL Mean Corpuscular Hemoglobin 32 25-34 pg Mean Corpuscular Hemoglobin Concent 33 32-36 g/dL Red Cell Distribution Width 13.2 10.0-14.5 % Platelet Count 180 130-400 10^3/uL Mean Platelet Volume 11.6 9.0-12.2 fL Immature Granulocyte % (Auto) 0 % Neutrophils (%) (Auto) 60 42-75 % Lymphocytes (%) (Auto) 27 12-44 % Monocytes (%) (Auto) 10 0-12 % Eosinophils (%) (Auto) 2 0-10 % Basophils (%) (Auto) 0 0-10 % Neutrophils # (Auto) 3.2 1.8-7.8 10^3/uL Lymphocytes # (Auto) 1.5 1.0-4.0 10^3/uL Monocytes # (Auto) 0.5 0.0-1.0 10^3/uL Eosinophils # (Auto) 0.1 0.0-0.3 10^3/uL Basophils # (Auto) 0.0 0.0-0.1 10^3/uL Immature Granulocyte # (Auto) 0.0 0.0-0.1 10^3/uL Sodium Level 139 135-145 MMOL/L Potassium Level 4.7 3.6-5.0 MMOL/L Chloride Level 104 98-107 MMOL/L Carbon Dioxide Level 24 21-32 MMOL/L Anion Gap 11 5-14 MMOL/L Blood Urea Nitrogen 23 H 7-18 MG/DL Creatinine 1.58 H 0.60-1.30 MG/DL Estimat Glomerular Filtration Rate 42 BUN/Creatinine Ratio 15 Glucose Level 110 H 70-105 MG/DL Calcium Level 9.3 8.5-10.1 MG/DL Corrected Calcium 9.2 8.5-10.1 MG/DL Total Bilirubin 0.4 0.1-1.0 MG/DL Aspartate Amino Transf (AST/SGOT) 16 5-34 U/L Alanine Aminotransferase (ALT/SGPT) 10 0-55 U/L Alkaline Phosphatase 55 40-136 U/L Troponin I < 0.028 <0.028 NG/ML C-Reactive Protein High Sensitivity 0.47 0.00-0.50 MG/DL B-Type Natriuretic Peptide 247.2 H <100.0 PG/ML Total Protein 7.3 6.4-8.2 GM/DL Albumin 4.1 3.2-4.5 GM/DL Urine Color YELLOW Urine Clarity CLEAR Urine pH 5.5 5-9 Urine Specific [place] 1.025 H 1.016-1.022 Urine Protein NEGATIVE NEGATIVE Urine Glucose (UA) NEGATIVE NEGATIVE Urine Ketones NEGATIVE NEGATIVE Urine Nitrite NEGATIVE NEGATIVE Urine Bilirubin NEGATIVE NEGATIVE Urine Urobilinogen 0.2 < = 1.0 MG/DL Urine Leukocyte Esterase NEGATIVE NEGATIVE Urine RBC (Auto) NEGATIVE NEGATIVE Urine RBC NONE /HPF Urine WBC NONE /HPF Urine Squamous Epithelial Cells RARE /HPF Urine Crystals NONE /LPF Urine Bacteria NEGATIVE /HPF Urine Casts NONE /LPF Urine Mucus NEGATIVE /LPF Urine Culture Indicated NO My Orders Orders - CONRAD THAO Ed Iv/Invasive Line Start (11/04/20 16:23) Lactated Ringers (Lr 1000 Ml Iv Solution (11/04/20 16:30) Orthostatic Vital Signs (Adult (11/04/20 16:23) Cbc With Automated Diff (11/04/20 16:23) Comprehensive Metabolic Panel (11/04/20 16:23) Hs C Reactive Protein (11/04/20 16:23) Ua Culture If Indicated (11/04/20 16:23) Chest 1 View, Ap/Pa Only (11/04/20 16:23) BNP (11/04/20 16:23) Troponin I (11/04/20 16:23) Ekg Tracing (11/04/20 16:23) Continuous Ekg Monitoring (11/04/20 16:23) Lactated Ringers (Lr 1000 Ml Iv Solution (11/04/20 16:23) Medications Given in ED Current Medications Medications Dose Ordered Sig/Isacc Route Start Time Stop Time Status Last Admin Dose Admin Lactated Ringer's 1,000 ml @ 0 mls/hr Q0M ONCE IV 11/04/20 16:30 11/04/20 16:31 DC 11/04/20 16:28 1,000 MLS/HR Vital Signs/I&O 11/04/20 11/04/20 16:05 16:17 Temp 36.6 Pulse 70 70 64 71 Resp 18 B/P (MAP) 113/59 (77) 114/59 (77) 113/62 (79) 107/42 (63) Pulse Ox 95 O2 Delivery Nasal Cannula O2 Flow Rate 2.00 Capillary Refill : Progress Note #1: Time: 16:32 Progress Note Orthostatics were positive with a 12 mmHg drop in the diastolic pressure from lying to standing. Suspect that his weight loss may be caused by the diuretics or his ongoing dementia and physical decline or some other reason and his need for diuretics has decreased faster than his dosing has decreased. Plan to check some labs, chest x-ray and give him a liter of lactated Ringer's and reassess. NIH of 0 points. Progress Note #2: Time: 18:17 Progress Note The patient has completed his liter of fluids feels better and is ready to go home. We reviewed his medications and encouraged him to stop the donepezil until he sees his doctor. We also encouraged him to stop the Lasix until next week and then resume it every other day. Her concern is that he may not need as much Lasix after his weight loss. We have encouraged follow-up in the next couple weeks with the primary care doctor. Te says that the primary care doctor has already called and checked in on him tonight. ECG Initial ECG Impression Date: Nov 04, 2020 Initial ECG Impression Time: 16:14 Initial ECG Rate: 65 Initial ECG Rhythm: Normal Sinus Initial ECG Intervals: QT (502) Initial ECG Impression: Nonspecific Changes Comment AV paced without any clinically relevant ST changes. Diagnostic Imaging Diagonstic Imaging: Xray Plain Films/CT/US/NM/MRI: chest Comments [facility] [place], [place] NAME: GRAY MCGILL [facility] REC#: [id number] PT STATUS: REG ER : 1930 PHYSICIAN: CONRAD THAO MD ADMIT DATE: 11/04/20/ER Draft Date of Exam:11/04/20 CHEST 1 VIEW, AP/PA ONLY EXAMINATION: Chest 1 view HISTORY: weakness COMPARISON: 02/28/2020. FINDINGS: Median sternotomy wires are aligned. There are coronary artery bypass graft markers. Heart is mildly enlarged. No pleural effusion or pneumothorax. No edema or pneumonia. IMPRESSION: 1. Clear lungs. Dictated on workstation # [id number] Dict: 11/04/20 1645 Trans: 11/04/20 1647 [id number] Interpreted by: MARY ANN GAXIOLA MD Electronically signed by: Reviewed: Reviewed by Me Departure Impression Primary Impression: Dehydration, mild Additional Impression: Weight loss Disposition: HOME, SELF-CARE Condition: Stable Departure-Patient Inst. Decision time for Depature: 18:17 Referrals: NO,LOCAL PHYSICIAN (PCP/Family) Primary Care Physician Patient Instructions: Dehydration, Adult (DC), Minimize Weight Loss Add. 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 This can help maintain a healthy weight. Stop taking the donepezil until you see the primary care doctor and discuss whether it is a good drug to resume. Make a follow-up appointment in the next 2 to 3 weeks with your primary care doctor. Stop taking the Lasix until 11/09/2020. Then take the Lasix/furosemide every other day. Discuss other reasons why you might be experiencing weight loss with your primary care doctor. Promptly return to the nearest ER for chest pain, shortness of air, fever, nausea vomiting diarrhea or other worrisome symptoms. CONRAD THAO Nov 04, 2020 16:27
[2020-11-04 16:30] LABS: BASOPHILS % (AUTO) 0 % (0-10); EOSINOPHILS # (AUTO) 0.1 10^3/uL (0.0-0.3); EOSINOPHILS % (AUTO) 2 % (0-10); HEMATOCRIT 37 % (40-54); HEMOGLOBIN 12.3 g/dL (13.3-17.7); LYMPHOCYTES # (AUTO) 1.5 10^3/uL (1.0-4.0); LYMPHOCYTES % (AUTO) 27 % (12-44); MEAN CORPUSCULAR HEMOGLOBIN 32 pg (25-34); MEAN CORPUSCULAR HGB CONC 33 g/dL (32-36); MEAN CORPUSCULAR VOLUME 94 fL (80-99); MEAN PLATELET VOLUME 11.6 fL (9.0-12.2); MONOCYTES # (AUTO) 0.5 10^3/uL (0.0-1.0); MONOCYTES % (AUTO) 10 % (0-12); NEUTROPHILS # (AUTO) 3.2 10^3/uL (1.8-7.8); NEUTROPHILS % (AUTO) 60 % (42-75); PLATELET COUNT 180 10^3/uL (130-400); WHITE BLOOD COUNT 5.3 10^3/uL (4.3-11.0)
[2020-11-04 16:36] LABS: ALBUMIN 4.1 GM/DL (3.2-4.5); CHLORIDE 104 MMOL/L (98-107); POTASSIUM 4.7 MMOL/L (3.6-5.0); SODIUM 139 MMOL/L (135-145)
[2020-11-04 16:37] LABS: CALCIUM 9.3 MG/DL (8.5-10.1)
[2020-11-04 16:38] LABS: GLUCOSE 110 MG/DL (70-105); TOTAL PROTEIN 7.3 GM/DL (6.4-8.2)
[2020-11-04 16:39] LABS: CARBON DIOXIDE 24 MMOL/L (21-32)
[2020-11-04 16:40] LABS: BILIRUBIN,TOTAL 0.4 MG/DL (0.1-1.0)
[2020-11-04 16:42] LABS: ALKALINE PHOSPHATASE 55 U/L (40-136); CREATININE SERUM 1.58 MG/DL (0.60-1.30); GFR ESTIMATED 42
[2020-11-04 16:43] LABS: BUN/CREATININE RATIO 15
[2020-11-04 16:45] LABS: ALANINE AMINOTRANSFERASE 10 U/L (0-55)
--- NOTE | 2020-11-04 16:48 | Diagnostic Imaging Report ---
EXAMINATION: Chest 1 view HISTORY: weakness COMPARISON: 02/28/2020. FINDINGS: Median sternotomy wires are aligned. There are coronary artery bypass graft markers. Heart is mildly enlarged. No pleural effusion or pneumothorax. No edema or pneumonia. IMPRESSION: 1. Clear lungs. Dictated by: Dictated on workstation # [id number]
[2020-11-04 17:30] LABS: BILIRUBIN,URINE NEGATIVE (NEGATIVE); CLARITY,URINE CLEAR; COLOR,URINE YELLOW; GLUCOSE, URINE (UA) NEGATIVE (NEGATIVE); KETONES,URINE NEGATIVE (NEGATIVE); LEUKOCYTE ESTERASE ,URINE NEGATIVE (NEGATIVE); NITRITE,URINE NEGATIVE (NEGATIVE); PH,URINE 5.5 (5-9); PROTEIN,URINE NEGATIVE (NEGATIVE)
[2020-11-04 17:40] LABS: BACTERIA,URINE NEGATIVE /HPF; SQUAMOUS EPITHELIAL CELL,UR RARE /HPF
[2020-11-04 18:35] VITALS: BP 124/74
== END 2020-11-04 18:36 | disposition home or self-care (01) ==
LOC: EDUNIT# 15:59 → ER 16:03
DX: E86.0 Dehydration (principal); R63.4 Abnormal weight loss; J43.9 Emphysema, unspecified; I25.10 Atherosclerotic heart disease of native coronary artery without angina pectoris; Z79.01 Long term (current) use of anticoagulants; Z79.899 Other long term (current) drug therapy
CPT/HCPCS: 36415; 71045; 80053; 81000; 82947; 83880; 84484; 85025; 86141; 93005

== ENCOUNTER 2020-11-25 08:03 | Inpatient (IN) | payer MEDICARE, MEDICAID ==
[~2020-11-25] VITALS: Ht 182 cm; Wt 108.2 kg
--- NOTE | 2020-11-25 08:47 | ED General ---
General Chief Complaint: Chest Pain Stated Complaint: CP Nursing Triage Note: ARRIVED VIA EMS FROM HOME. FEVER, CHEST PAIN, TREMMORS. History of Present Illness Date Seen by Provider: Nov 25, 2020 Time Seen by Provider: 08:30 Initial Comments Patient is an 89-year-old male who presents to the emergency department by ambulance with a chief complaint of low-grade fever, chest pain, shortness of breath, nausea, vomiting, diarrhea and trouble with urination. It seems onset of symptoms have been within the last 24 hours. Patient presents from home. He is a poor historian. He thinks that he has a history of coronary artery disease he does have a midline sternotomy scar. Patient endorses all of the above complaints and appears very short of breath with an albuterol breathing treatment. He states he is on oxygen 2 L at all times. SPO2 is about 88% on 4 L currently. Patient is quite tachypneic. He states he believes he has had his Covid vaccine but is uncertain. Complaining of body aches and back pain. No other family is available at present for the rest of the history. Patient does state that should his heart stop beating he would like CPR "if that is what it takes". Review of systems is difficult secondary to the patient being hard of hearing. And also somewhat confused. 927 Further history from son, he states that the patient told him that he woke himself up coughing this morning. He did seem a little confused this morning but was complaining of some left-sided chest pain and some jaw pain. Did not mention to his son that he was having fever. Last saw Dr. Muhammad about a week and a half ago and had his pacemaker interrogated. No problems were noted there. Was supposed to get a call from Dr. Muhammad's office about possibly l ooking into having a new blockage. Has not had a call from that clinic yet. Patient is Covid vaccinated in April of this year. His son cannot recall what brand of Covid vaccination he had. Did have contact with a grandson who is not vaccinated over the weekend. Timing/Duration: 24 Hours Severity: Severe Associated Systoms: Chest Pain, Fever/Chills, Malaise, Nausea/Vomiting, Shortness of Air, Weakness Allergies and Home Medications Allergies Coded Allergies: Penicillins (Verified Allergy, Unknown, 02/27/20) Home Medications Acetaminophen 650 Mg Tablet.er, 1,300 MG PO BID, (Reported) TAKES 2 (650MG) TABS Ca Carbonate/Vitamin D3/Vit K 1 Each Tab.chew, 1 EACH PO DAILY, (Reported) Clindamycin HCl 150 Mg Capsule, 150 MG PO Q6HR Prescribed by: ARLEY CULLEN on 03/01/20 1222 Clopidogrel Bisulfate 75 Mg Tablet, 75 MG PO DAILY, (Reported) Furosemide 20 Mg Tablet, 20 MG PO DAILY, (Reported) Loratadine 10 Mg Tablet, 10 MG PO DAILY, (Reported) Multivitamin 1 Each Tablet, 1 EACH PO DAILY, (Reported) Omeprazole 40 Mg Capsule.dr, 40 MG PO DAILY, (Reported) Pravastatin Sodium 80 Mg Tablet, 80 MG PO DAILY, (Reported) Sertraline HCl 25 Mg Tablet, 25 MG PO HS, (Reported) Patient Home Medication List Home Medication List Reviewed: Yes Review of Systems Review of Systems Constitutional: fever EENTM: no symptoms reported Respiratory: cough, short of breath Cardiovascular: chest pain Gastrointestinal: diarrhea, nausea, vomiting Genitourinary: other (Trouble with urination) Musculoskeletal: back pain Skin: no symptoms reported Psychiatric/Neurological: Tremors All Other Systems Reviewed Negative Unless Noted: Yes Past Nqoeleb-[id number] Hx Past Medical History Surgeries: Yes CABG, Orthopedic Respiratory: Yes (Chronic hypoxia, uses nasal cannula) Emphysema Cardiac: Yes Coronary Artery Disease Neurological: No Genitourinary: Yes ("Urinary problems") Renal Failure Gastrointestinal: No Musculoskeletal: No Endocrine: No HEENT: No Cancer: No Psychosocial: No Integumentary: No Physical Exam Vital Signs Vital Signs - First Documented 11/25/20 11/25/20 08:15 08:43 Temp 37.3 Pulse 131 Resp 26 B/P (MAP) 144/111 (122) Pulse Ox 87 O2 Delivery Nasal Cannula O2 Flow Rate 3.00 Capillary Refill : Less Than 3 Seconds Height, Weight, BMI Height: '" Weight: lbs. oz. kg; 27.00 BMI Method: General Appearance: WD/WN, Anxious, Mild Distress Eyes: Bilateral Eye Normal Inspection Neck: Normal Inspection Respiratory: Rales (At bases bilaterally, mild to moderate increased work of breathing), Other (Nitropaste present right upper chest wall, patient has a pacemaker) Cardiovascular: Regular Rate, Rhythm (Patient initially presented quite tachycardic in the 130s but converted in front of me to a ventricular paced rhythm in the 60s to 80s.), Other (Bilateral 2+ lower extremity edema) Gastrointestinal: Normal Bowel Sounds, Non Tender, Soft Extremity: No Calf Tenderness, Pedal Edema Neurologic/Psychiatric: Alert, Oriented x3, Normal Mood/Affect Skin: Normal Color, Warm/Dry Focused Exam Lactate Level 11/25/20 08:26: Lactic Acid Level 4.49*H 11/25/20 10:50: Lactic Acid Level Laboratory Tests Test 11/25/20 08:26 11/25/20 10:50 Lactic Acid Level 4.49 MMOL/L (0.50-2.00) *H Progress/Results/Core Measures Suspected Sepsis Recent Fever Within 48 Hours: Yes Infection Criteria Present: Suspected New Infection New/Unexplained Altered Menta: Yes (worsening) Within 3hrs of presentation: Admin fluids (small 250 cc bolus), Blood cultures prior to ABX's, Lactate level SIRS Temperature: Pulse: 131 Respiratory Rate: 26 Laboratory Tests 11/25/20 08:26: White Blood Count 9.6 Blood Pressure 144 /111 Mean: 122 11/25/20 08:26: Lactic Acid Level 4.49*H 11/25/20 10:50: Laboratory Tests 11/25/20 08:26: Creatinine 1.43H, INR Comment 1.0, Platelet Count 194, Total Bilirubin 0.7 Results/Orders Lab Results Laboratory Tests Test 11/25/20 08:20 11/25/20 08:26 11/25/20 09:00 11/25/20 09:36 Range/Units C-Reactive Protein High Sensitivity 2.67 H 0.00-0.50 MG/DL Procalcitonin 0.06 <0.10 NG/ML Influenza Type A (RT-PCR) Not Detected Not Detecte Influenza Type B (RT-PCR) Not Detected Not Detecte SARS-CoV-2 RNA (RT-PCR) Not Detected Not Detecte White Blood Count 9.6 4.3-11.0 10^3/uL Red Blood Count 4.92 4.30-5.52 10^6/uL Hemoglobin 15.2 13.3-17.7 g/dL Hematocrit 47 40-54 % Mean Corpuscular Volume 96 80-99 fL Mean Corpuscular Hemoglobin 31 25-34 pg Mean Corpuscular Hemoglobin Concent 32 32-36 g/dL Red Cell Distribution Width 12.8 10.0-14.5 % Platelet Count 194 130-400 10^3/uL Mean Platelet Volume 10.7 9.0-12.2 fL Immature Granulocyte % (Auto) 0 % Neutrophils (%) (Auto) 73 42-75 % Lymphocytes (%) (Auto) 21 12-44 % Monocytes (%) (Auto) 5 0-12 % Eosinophils (%) (Auto) 0 0-10 % Basophils (%) (Auto) 0 0-10 % Neutrophils # (Auto) 7.0 1.8-7.8 10^3/uL Lymphocytes # (Auto) 2.0 1.0-4.0 10^3/uL Monocytes # (Auto) 0.5 0.0-1.0 10^3/uL Eosinophils # (Auto) 0.0 0.0-0.3 10^3/uL Basophils # (Auto) 0.0 0.0-0.1 10^3/uL Immature Granulocyte # (Auto) 0.0 0.0-0.1 10^3/uL Prothrombin Time 13.5 12.2-14.7 SEC INR Comment 1.0 0.8-1.4 Activated Partial Thromboplast Time 28 24-35 SEC Urine Color YELLOW Urine Clarity CLEAR Urine pH 5.0 5-9 Urine Specific [place] 1.025 H 1.016-1.022 Urine Protein NEGATIVE NEGATIVE Urine Glucose (UA) NEGATIVE NEGATIVE Urine Ketones NEGATIVE NEGATIVE Urine Nitrite NEGATIVE NEGATIVE Urine Bilirubin NEGATIVE NEGATIVE Urine Urobilinogen 0.2 < = 1.0 MG/DL Urine Leukocyte Esterase NEGATIVE NEGATIVE Urine RBC (Auto) NEGATIVE NEGATIVE Urine RBC NONE /HPF Urine WBC NONE /HPF Urine Squamous Epithelial Cells NONE /HPF Urine Crystals NONE /LPF Urine Bacteria NEGATIVE /HPF Urine Casts NONE /LPF Urine Mucus NEGATIVE /LPF Urine Culture Indicated CULTURE PENDING Sodium Level 137 135-145 MMOL/L Potassium Level 4.0 3.6-5.0 MMOL/L Chloride Level 102 98-107 MMOL/L Carbon Dioxide Level 23 21-32 MMOL/L Anion Gap 12 5-14 MMOL/L Blood Urea Nitrogen 30 H 7-18 MG/DL Creatinine 1.43 H 0.60-1.30 MG/DL Estimat Glomerular Filtration Rate 47 BUN/Creatinine Ratio 21 Glucose Level 150 H 70-105 MG/DL Lactic Acid Level 4.49 *H 0.50-2.00 MMOL/L Calcium Level 10.2 H 8.5-10.1 MG/DL Corrected Calcium 8.5-10.1 MG/DL Total Bilirubin 0.7 0.1-1.0 MG/DL Aspartate Amino Transf (AST/SGOT) 16 5-34 U/L Alanine Aminotransferase (ALT/SGPT) 17 0-55 U/L Alkaline Phosphatase 65 40-136 U/L Total Creatine Kinase 75 30-200 U/L Troponin I < 0.028 <0.028 NG/ML B-Type Natriuretic Peptide 144.1 H <100.0 PG/ML Total Protein 8.2 6.4-8.2 GM/DL Albumin 4.6 H 3.2-4.5 GM/DL Blood Gas Puncture Site NA LT RAD Blood Gas Patient Temperature 99.1 37.3 Arterial Blood pH 7.33 *L 7.38 7.37-7.43 Arterial Blood Partial Pressure CO2 48 H 41 35-45 MMHG Arterial Blood Partial Pressure O2 36 *L 36 *L 79-93 MMHG Arterial Blood HCO3 24 24 23-27 MMOL/L Arterial Blood Total CO2 25.5 25.1 21.0-31.0 MMOL/L Arterial Blood Oxygen Saturation 47 L 57 L 94-100 % Arterial Blood Base Excess -1.1 -0.5 -2.5-2.5 MMOL/L Sukumar Test YES-POS YES-POS Blood Gas Ventilator Setting NO NO Blood Gas Inspired Oxygen 3 L 3 L Test 11/25/20 10:50 Range/Units My Orders Orders - FAUSTINO CANTRELL MD Cbc With Automated Diff (11/25/20 08:40) Comprehensive Metabolic Panel (11/25/20 08:40) Blood Culture (11/25/20 08:40) Sputum Culture (11/25/20 08:40) Urinalysis (11/25/20 08:40) Urine Culture (11/25/20 08:40) Protime With Inr (11/25/20 08:40) Partial Thromboplastin Time (11/25/20 08:40) Chest 1 View, Ap/Pa Only (11/25/20 08:40) Ed Iv/Invasive Line Start (11/25/20 08:40) Ed Iv/Invasive Line Start (11/25/20 08:40) Vital Signs Adult Sepsis Patie Q15M (11/25/20 08:40) O2 (11/25/20 08:40) Remove Rings In Anticipation O (11/25/20 08:40) Lactic Acid Analyzer (11/25/20 08:40) Creatine Kinase (11/25/20 08:40) Troponin I (11/25/20 08:40) Ekg Tracing (11/25/20 08:40) BNP (11/25/20 08:40) Communication For Respiratory (11/25/20 08:40) Arterial Blood Gas (11/25/20 08:40) Covid 19 Inhouse Test (11/25/20 08:40) Influenza A And B By Pcr (11/25/20 08:40) Procalcitonin (Pct) (11/25/20 08:59) Hs C Reactive Protein (11/25/20 08:59) Lorazepam Injection (Ativan Injection) (11/25/20 09:11) Lorazepam Injection (Ativan Injection) (11/25/20 09:12) Ns (Ivpb) (Sodium Chloride 0.9%) (11/25/20 09:45) Arterial Blood Gas (11/25/20 09:26) Ns (Ivpb) (Sodium Chloride 0.9%) (11/25/20 09:48) Ceftriaxone (Rocephin) (11/25/20 10:15) Azithromycin Injection (Zithromax Inject (11/25/20 10:15) Medications Given in ED Current Medications Medications Dose Ordered Sig/Isacc Route Start Time Stop Time Status Last Admin Dose Admin Azithromycin 500 mg/Sodium Chloride 250 ml @ 250 mls/hr ONCE ONCE IV 11/25/20 10:15 11/25/20 11:14 DC 11/25/20 11:06 250 MLS/HR Ceftriaxone Sodium 1000 mg/ Sterile Water 10 ml @ 200 mls/hr ONCE ONCE IV 11/25/20 10:15 11/25/20 10:17 DC 11/25/20 11:03 200 MLS/HR Sodium Chloride 250 ml @ 999 mls/hr Q16M ONCE IV 11/25/20 09:45 11/25/20 10:00 DC 11/25/20 09:48 999 MLS/HR Vital Signs/I&O 11/25/20 11/25/20 08:15 08:43 Temp 37.3 Pulse 131 Resp 26 B/P (MAP) 144/111 (122) Pulse Ox 87 O2 Delivery Nasal Cannula Nasal Cannula O2 Flow Rate 3.00 Capillary Refill : Less Than 3 Seconds Blood Pressure Mean: 122 Progress Note : Time: 09:29 Progress Note Covid test negative. Labs reviewed, troponin negative, ABG looks like it is a venous specimen with a PO2 down in the 30s on his 3 L. Patient vacillates from 60s paced rhythm to the lower 100-1 10 range. Remains a little bit confused but does recognize his stepson. Stepson is power of assistant city attorney. Chest x-ray is being done at this time. Procalcitonin is still pending. He does have a little acute kidney injury. 1125 Discussion with the patient's DPOA, his stepson as well as with Dr. Lennon, patient te wants him to be a DNI/DNR. Patient would meet indicators for the 30 mils per kilogram fluid bolus secondary to his elevated lactic acid above 4 and borderline hypotension. Patient's map is not less than 60 however his blood pressure has slightly decreased throughout his stay here in the emergency department. Dr. Lennon recommends small incremental doses of 250 cc of normal saline at a time. I do not have medical records indicating the patient's EF at this time. Case was discussed with Dr. Muhammad. I do not believe the patient has CHF I believe he has pneumonia with sepsis. He did respond to the 250 cc bolus with an increase of his systolic blood pressure to 110. He is currently resting comfortably oxygen saturations have improved since he has settled down. Patient will be admitted to cardiac stepdown under the care of Dr. Lynch with Dr. Muhammad as a industry consultant. Troponin pending for 2 PM this afternoon. ECG Initial ECG Impression Date: Nov 25, 2020 Initial ECG Impression Time: 08:33 Initial ECG Rate: 88 Initial ECG Intervals Paced rhythm, ventricular Diagnostic Imaging Diagonstic Imaging: Xray Plain Films/CT/US/NM/MRI: chest Comments [facility] [facility] [place], [place] NAME: GRAY MCGILL [facility] REC#: [id number] PT STATUS: REG ER : 1930 PHYSICIAN: FAUSTINO CANTRELL MD ADMIT DATE: 11/25/20/ER Draft Date of Exam:11/25/20 CHEST 1 VIEW, AP/PA ONLY INDICATION: Confusion, coronary artery disease COMPARISON: 11/04/2020 FINDINGS: Single view of the chest demonstrates cardiac enlargement with new interstitial infiltrates. This likely represents CHF. Pneumonia not excluded. There is no pneumothorax or effusion. The pacemaker stable. Sternal wires are midline. IMPRESSION: Cardiac enlargement with new interstitial infiltrates Dictated on workstation # [id number] Dict: 11/25/20 0934 Trans: 11/25/20 0936 [facility] [id number] Interpreted by: ZOHRA CROSS Electronically signed by: Critical Care Note Critical Care Start Time: 08:30 Stop Time: 10:00 Total Time (minutes) 40 minutes critical care time in the evaluation and management of this 89-year-old gentleman with suspected sepsis. Time includes fluid resuscitation with small boluses of IV fluids, oxygen supplementation, review of the medical record, discussion with the admitting hospitalist, discussion with cardiology services and discussion with family. Departure Communication (Admissions) Time/Spoke to Admitting Phy: 10:[address] Lennon regarding admission. Recommends the continuance of PUI status, small gentle fluid boluses, Rocephin and a azithromycin, consultation with Dr. Muhammad Impression Primary Impression: Sepsis Qualified Codes: A41.9 - Sepsis, unspecified organism; R65.20 - Severe sepsis without septic shock; J96.01 - Acute respiratory failure with hypoxia Additional Impressions: Pneumonia Qualified Codes: J18.9 - Pneumonia, unspecified organism Advanced age CAD (coronary artery disease) Qualified Codes: I25.10 - Atherosclerotic heart disease of [place] coronary artery without angina pectoris Disposition: ADMITTED INPATIENT Condition: Stable Admissions Decision to Admit Reason: Admit from ER (General) Decision to Admit/Date: Nov 25, 2020 Time/Decision to Admit Time: 10:04 Departure-Patient Inst. Referrals: NO,LOCAL PHYSICIAN (PCP/Family) Primary Care Physician FAUSTINO CANTRELL MD Nov 25, 2020 08:47
[2020-11-25 08:50] LABS: BILIRUBIN,URINE NEGATIVE (NEGATIVE); CLARITY,URINE CLEAR; COLOR,URINE YELLOW; GLUCOSE, URINE (UA) NEGATIVE (NEGATIVE); KETONES,URINE NEGATIVE (NEGATIVE); LEUKOCYTE ESTERASE ,URINE NEGATIVE (NEGATIVE); NITRITE,URINE NEGATIVE (NEGATIVE); PROTEIN,URINE NEGATIVE (NEGATIVE)
[2020-11-25 08:52] LABS: BASOPHILS % (AUTO) 0 % (0-10); EOSINOPHILS % (AUTO) 0 % (0-10); HEMATOCRIT 47 % (40-54); HEMOGLOBIN 15.2 g/dL (13.3-17.7); LYMPHOCYTES % (AUTO) 21 % (12-44); MEAN CORPUSCULAR HEMOGLOBIN 31 pg (25-34); MEAN CORPUSCULAR HGB CONC 32 g/dL (32-36); MEAN CORPUSCULAR VOLUME 96 fL (80-99); MEAN PLATELET VOLUME 10.7 fL (9.0-12.2); MONOCYTES # (AUTO) 0.5 10^3/uL (0.0-1.0); MONOCYTES % (AUTO) 5 % (0-12); NEUTROPHILS % (AUTO) 73 % (42-75); PLATELET COUNT 194 10^3/uL (130-400); WHITE BLOOD COUNT 9.6 10^3/uL (4.3-11.0)
[2020-11-25 08:57] LABS: ALBUMIN 4.6 GM/DL (3.2-4.5); CHLORIDE 102 MMOL/L (98-107); SODIUM 137 MMOL/L (135-145)
[2020-11-25 08:59] LABS: CALCIUM 10.2 MG/DL (8.5-10.1)
[2020-11-25 09:00] LABS: BACTERIA,URINE NEGATIVE /HPF; GLUCOSE 150 MG/DL (70-105); TOTAL PROTEIN 8.2 GM/DL (6.4-8.2)
[2020-11-25 09:01] LABS: BILIRUBIN,TOTAL 0.7 MG/DL (0.1-1.0); CARBON DIOXIDE 23 MMOL/L (21-32)
[2020-11-25 09:03] LABS: ALKALINE PHOSPHATASE 65 U/L (40-136); CREATININE SERUM 1.43 MG/DL (0.60-1.30); GFR ESTIMATED 47; PROTHROMBIN TIME PATIENT 13.5 SEC (12.2-14.7)
[2020-11-25 09:04] LABS: BUN/CREATININE RATIO 21
[2020-11-25 09:06] LABS: ALANINE AMINOTRANSFERASE 17 U/L (0-55); CREATINE KINASE 75 U/L (30-200)
[2020-11-25] MEDS ORDERED: LORazepam INJ 2 MG/ML (ATIVAN) VIAL IVP STA (09:11)
[2020-11-25] MEDS ORDERED: LORazepam INJ 2 MG/ML (ATIVAN) VIAL ONE (09:12)
[2020-11-25 09:16] LABS: ABG BASE EXCESS -1.1 MMOL/L (-2.5-2.5); ABG OXYGEN SATURATION 47 % (94-100); ABG PCO2 48 MMHG (35-45); ABG TCO2 25.5 MMOL/L (21.0-31.0)
[2020-11-25 09:20] LABS: ABG PH 7.33 (7.37-7.43); ABG PO2 36 MMHG (79-93); ALLENS TEST YES-POS
[2020-11-25 09:21] LABS: INSPIRED O2 3 L; PATIENT TEMP 99.1; VENTILATOR NO
--- NOTE | 2020-11-25 09:37 | Diagnostic Imaging Report ---
INDICATION: Confusion, coronary artery disease COMPARISON: 11/04/2020 FINDINGS: Single view of the chest demonstrates cardiac enlargement with new interstitial infiltrates. This likely represents CHF. Pneumonia not excluded. There is no pneumothorax or effusion. The pacemaker stable. Sternal wires are midline. IMPRESSION: Cardiac enlargement with new interstitial infiltrates Dictated by: Dictated on workstation # [id number]
[2020-11-25 09:42] LABS: ABG BASE EXCESS -0.5 MMOL/L (-2.5-2.5); ABG OXYGEN SATURATION 57 % (94-100); ABG PCO2 41 MMHG (35-45); ABG PH 7.38 (7.37-7.43); ABG TCO2 25.1 MMOL/L (21.0-31.0)
[2020-11-25] MEDS ORDERED: NS (IVPB) 250 ML IV ONE (09:45)
[2020-11-25] MEDS ORDERED: NS (IVPB) 250 ML ONE (09:48)
[2020-11-25] MEDS ORDERED: AZITHROMYCIN INJECTION 500 MG in NS (IVPB) 250 ML IV ONE (10:15)
[2020-11-25] MEDS ORDERED: cefTRIAXone 1,000 MG in WATER (STERILE) FOR INJECTION 10 ML IV ONE (10:15)
[2020-11-25 10:18] LABS: ABG PO2 36 MMHG (79-93); ALLENS TEST YES-POS; INSPIRED O2 3 L
[2020-11-25 10:19] LABS: PATIENT TEMP 37.3; VENTILATOR NO
--- NOTE | 2020-11-25 12:07 | Consultation-Cardiology ---
HPI-Cardiology Cardiology Consultation Date of Consultation 11/25/20 Date of Admission Time Seen by Provider: 12:01 Indication: Chest pain HPI Patient is an 89 y/o male with hx of CAD with CABG, CHB s/p PPM in February 2020, HTN. Presented to the ER with te, who is DPOA with complaints of fever, cough, N/V/D onset yesterday. Had episode of chest pain, with radiation to jaw. Patients is [place] and having AMS, HPI is limited. Home Medications & Allergies Allergies: Coded Allergies: Penicillins (Verified Allergy, Unknown, 02/27/20) Home Medication List Reviewed: Yes [id number]-Jtbpdr Hx Patient Social History Marital Status: Employed/Student: retired Type Used: Cigarettes Recent Hopitalizations: No Have you traveled recently?: No Past Medical History CAD, CHB s/p PPM Family Medical History Family Medical Hx Noncontributory Review of Systems-General Review of Systems Constitutional: see HPI, fever, malaise EENTM: see HPI, no symptoms reported Respiratory: see HPI, cough, short of breath Cardiovascular: see HPI, chest pain Gastrointestinal: diarrhea, nausea, vomiting Genitourinary: other (Trouble with urination) Musculoskeletal: back pain Skin: no symptoms reported Psychiatric/Neurological: Tremors All Other Systems Reviewed Negative Unless Noted: Yes Reviewed Test Results Reviewed Test Results Lab Laboratory Tests 11/25/20 08:20: C-Reactive Protein High Sensitivity 2.67H, Procalcitonin 0.06, Influenza Type A (RT-PCR) Not Detected, Influenza Type B (RT-PCR) Not Detected, SARS-CoV-2 RNA (RT-PCR) Not Detected 11/25/20 08:26: White Blood Count 9.6, Red Blood Count 4.92, Hemoglobin 15.2, Hematocrit 47, Mean Corpuscular Volume 96, Mean Corpuscular Hemoglobin 31, Mean Corpuscular Hemoglobin Concent 32, Red Cell Distribution Width 12.8, Platelet Count 194, Mean Platelet Volume 10.7, Immature Granulocyte % (Auto) 0, Neutrophils (%) (Auto) 73, Lymphocytes (%) (Auto) 21, Monocytes (%) (Auto) 5, Eosinophils (%) (Auto) 0, Basophils (%) (Auto) 0, Neutrophils # (Auto) 7.0, Lymphocytes # (Auto) 2.0, Monocytes # (Auto) 0.5, Eosinophils # (Auto) 0.0, Basophils # (Auto) 0.0, Immature Granulocyte # (Auto) 0.0, Prothrombin Time 13.5, INR Comment 1.0, Activated Partial Thromboplast Time 28, Urine Color YELLOW, Urine Clarity CLEAR, Urine pH 5.0, Urine Specific [place] 1.025H, Urine Protein NEGATIVE, Urine Glucose (UA) NEGATIVE, Urine Ketones NEGATIVE, Urine Nitrite NEGATIVE, Urine Bilirubin NEGATIVE, Urine Urobilinogen 0.2, Urine Leukocyte Esterase NEGATIVE, Urine RBC (Auto) NEGATIVE, Urine RBC NONE, Urine WBC NONE, Urine Squamous Epithelial Cells NONE, Urine Crystals NONE, Urine Bacteria NEGATIVE, Urine Casts NONE, Urine Mucus NEGATIVE, Urine Culture Indicated CULTURE PENDING, Sodium Level 137, Potassium Level 4.0, Chloride Level 102, Carbon Dioxide Level 23, Anion Gap 12, Blood Urea Nitrogen 30H, Creatinine 1.43H, Estimat Glomerular Filtration Rate 47, BUN/Creatinine Ratio 21, Glucose Level 150H, Lactic Acid Level 4.49*H, Calcium Level 10.2H, Corrected Calcium , Total Bilirubin 0.7, Aspartate Amino Transf (AST/SGOT) 16, Alanine Aminotransferase (ALT/SGPT) 17, Alkaline Phosphatase 65, Total Creatine Kinase 75, Troponin I < 0.028, B-Type Natriuretic Peptide 144.1H, Total Protein 8.2, Albumin 4.6H 11/25/20 09:00: Blood Gas Puncture Site NA, Blood Gas Patient Temperature 99.1, Arterial Blood pH 7.33*L, Arterial Blood Partial Pressure CO2 48H, Arterial Blood Partial Pressure O2 36*L, Arterial Blood HCO3 24, Arterial Blood Total CO2 25.5, Arterial Blood Oxygen Saturation 47L, Arterial Blood Base Excess -1.1, Sukumar Test YES-POS, Blood Gas Ventilator Setting NO, Blood Gas Inspired Oxygen 3 L 11/25/20 09:36: Blood Gas Puncture Site LT RAD, Blood Gas Patient Temperature 37.3, Arterial Blood pH 7.38, Arterial Blood Partial Pressure CO2 41, Arterial Blood Partial Pressure O2 36*L, Arterial Blood HCO3 24, Arterial Blood Total CO2 25.1, Arterial Blood Oxygen Saturation 57L, Arterial Blood Base Excess -0.5, Sukumar Test YES-POS, Blood Gas Ventilator Setting NO, Blood Gas Inspired Oxygen 3 L 11/25/20 10:50: Lactic Acid Level 2.32*H Physical Exam Physical Exam Vital Signs Vital Signs - First Documented 11/25/20 11/25/20 08:15 08:43 Temp 37.3 Pulse 131 Resp 26 B/P (MAP) 144/111 (122) Pulse Ox 87 O2 Delivery Nasal Cannula O2 Flow Rate 3.00 Capillary Refill : Less Than 3 Seconds Height, Weight, BMI Height: '" Weight: lbs. oz. kg; 27.00 BMI Method: General Appearance: WD/WN, Anxious, Mild Distress Eyes: Bilateral Eye Normal Inspection Neck: Normal Inspection Respiratory: Rales (At bases bilaterally, mild to moderate increased work of breathing), Other (Nitropaste present right upper chest wall, patient has a pacemaker) Cardiovascular: Regular Rate, Rhythm (Patient initially presented quite tachy cardic in the 130s but converted in front of me to a ventricular paced rhythm in the 60s to 80s.), Other (Bilateral 2+ lower extremity edema) Gastrointestinal: Normal Bowel Sounds, Non Tender, Soft Extremity: No Calf Tenderness, Pedal Edema Neurologic/Psychiatric: Alert, Oriented x3, Normal Mood/Affect Skin: Normal Color, Warm/Dry A/P-Cardiology Admission Diagnosis Pneumonia CAD Elevated BNP CHB s/p PPM Assessment/Plan Sepsis, pneumonia- started on antibiotic, gentle IVF's. Management per medical services. Chest pain, nonspecific etiology, EKG showing paced rhythm, troponin negative. Was seen in our office earlier this month and scheduled for stress test. At this point I do not recommend doing a stress test. Elevated BNP, I will evaluate 2D echo. 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 Interrogation done October 06, 2020 showing good sensing and capture activity, no arrhythmia was detected. Continue to monitor Coronary artery disease, s/p CABG in the past. No recent work up, will continue to monitor closely. Hypertension, restart home blood pressure medications and continue to monitor. Hyperlipidemia, continue to monitor as outpatient Renal insufficiency, continue to monitor renal function. Dementia Thank you for allowing us to participate in the management of Mr. Freire. This is Deanna Manuel PA-C, as a scribe for Dr. Muhammad Patient was seen and evaluated with Deanna, examination performed, management plan was discussed, agree with the current scribed note, I made few changes to the note using Italic font Patient was admitted for sepsis/pneumonia, was borderline hypotensive, receiving antibiotic and IV fluid Had mild elevation in BNP, still the overall number is lower than his baseline, planning to evaluate 2D echo Reporting chest pain, atypical, no active chest pain at this time, EKG showing underlying paced rhythm. Troponin is negative, we will continue following the trend, plan to evaluate 2D echo Due to his age of 89 and multiple comorbid conditions and extensive history of coronary artery disease and CABG, I recommend conservative management. Continue with his home medication monitor blood pressure and lipids Clinical Quality Measures AMI/AHF: ASA po Prior to arrival: Yes (324 MG PER EMS) DEANNA GAONA Nov 25, 2020 12:07 SLADE MUHAMMAD MD Nov 25, 2020 14:45
[2020-11-25 12:30] VITALS: BP 108/61
[2020-11-25] MEDS ORDERED: CATHETER FLUSH 10 ML SYR IV PRN (12:45)
[2020-11-25] MEDS ORDERED: ACETAMINOPHEN 325 MG TABLET PO PRN (12:45)
[2020-11-25] MEDS ORDERED: DOCU100T7 PO (14:06)
[2020-11-25] MEDS ORDERED: DIPH-581 PO (14:06)
[2020-11-25] MEDS ORDERED: CYAN-41 PO (14:06)
[2020-11-25] MEDS ORDERED: MEMA7CAP2 PO (14:06)
[2020-11-25] MEDS: CATHETER FLUSH 10 ML SYR IV SCH ×2 (14:31→22:00)
[2020-11-25 15:25] VITALS: BP 108/61
[2020-11-25 15:35] VITALS: BP 109/68
--- NOTE | 2020-11-25 15:35 | History & Physical-Hospitalist ---
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 Patient reports that he is here because he has "the shakes" and then mimicked with his arms shaking. Otherwise when asked if he had any other symptoms he said "I think I'm alive." and laughed. All other history is obtained from the records. Per Er He woke up with left sided chest pain, SOB, jaw pain, headache, and myalagias. He apparently had a low grade fever as well with nausea and vomiting. He is chronically on oxygen at 2lpm. He was found to have likely pneumonia and was admitted for sepsis. Source: patient Exam Limitations: other ([place]) Date Seen 11/25/20 Time Seen by a Provider: 15:27 Attending Physician Cris Lennon MD PCP No,Local Physician Referring Physician Date of Admission Nov 25, 2020 at 11:12 Home Medications & Allergies Home Medications Reviewed patient Home Medication Reconciliation performed by pharmacy medication reconciliations field support technician and/or nursing. Patients Allergies have been reviewed. Allergies Allergies Coded Allergies Penicillins (Verified Allergy, Unknown, 02/27/20) Past Mqqrtfa-Ukicrm-Knphdn Hx Patient Social History Marrital Status: Employed/Student: retired Tobacco Use?: No Smoking Status: Unknown if Ever Smoked Smokeless Tobacco Frequency: Unknown if Ever Used Use of E-Cig and/or Vaping dev: Unable to obtain Substance use?: Unable to obtain Alcohol Use?: Unable to obtain Pt feels they are or have been: Unable to obtain Immunizations Up To Date Tetanus Booster (TDap): Unknown Hepatitis A: No Hepatitis B: No Current Status Advance Directives: Unable to obtain Communicates: Verbally Primary Language: Turkmen Preferred Spoken Language: Turkmen Is interpretation needed?: No Sensory deficits: Hearing impairment Implanted or Applied Medical D: None Past Medical History Surgeries: CABG, Orthopedic Emphysema Coronary Artery Disease, Irregular Heartbeat (CHB- now has pacemaker) Renal Failure Family Medical History Reviewed Nursing Family Hx No Pertinent Family Hx Review of Systems Constitutional: see HPI Physical Exam Physical Exam Vital Signs Vital Signs - First Documented 11/25/20 11/25/20 08:15 08:43 Temp 37.3 Pulse 131 Resp 26 B/P (MAP) 144/111 (122) Pulse Ox 87 O2 Delivery Nasal Cannula O2 Flow Rate 3.00 Capillary Refill : Less Than 3 Seconds Height, Weight, BMI Height: '" Weight: lbs. oz. kg; 32.66 BMI Method: General Appearance: No Apparent Distress, Chronically ill, Obese HEENT: PERRL/EOMI, Moist Mucous Membranes; No Scleral Icterus (L), No Scleral Icterus (R) Neck: Normal Inspection, Supple Respiratory: No Accessory Muscle Use, No Respiratory Distress, Decreased Breath Sounds; No Rhonci, No Wheezing Cardiovascular: Regular Rate, Rhythm, No JVD, No Murmur Gastrointestinal: Normal Bowel Sounds, Non Tender, Soft Extremity: Swelling (1-2+ pitting edema bilaterally) Neurologic/Psychiatric: Alert, Other (oriented to self and place only) Skin: Normal Color, Warm/Dry Results Results/Procedures Labs Laboratory Tests 11/26/20 05:17 11/26/20 10:05 Patient resulted labs reviewed. Imaging: Reviewed Imaging Report Imaging [facility], [place] NAME: [facility] REC#: [id number] PT STATUS: REG ER : 1930 PHYSICIAN: FAUSTINO CANTRELL MD ADMIT DATE: 11/25/20/ER Draft Date of Exam:11/25/20 CHEST 1 VIEW, AP/PA ONLY INDICATION: Confusion, coronary artery disease COMPARISON: 11/04/2020 FINDINGS: Single view of the chest demonstrates cardiac enlargement with new interstitial infiltrates. This likely represents CHF. Pneumonia not excluded. There is no pneumothorax or effusion. The pacemaker stable. Sternal wires are midline. IMPRESSION: Cardiac enlargement with new interstitial infiltrates Dictated on workstation # [id number] Dict: 11/25/20 0934 Trans: 11/25/20 0936 STEVEN [id number] Interpreted by: ZOHRA CROSS Electronically signed by: Assessment/Plan Admission Diagnosis Sepsis Admission Status: Inpatient Order (span 2 midnights) Reason for Inpatient Admission: see below Assessment and Plan Severe Sepsis due to pneumonia Acute on chronic respiratory failure Continue on abx for CAP coverage WIll repeat COVID swab in AM Has been vaccinated and in house test negative but procal negative and no white count so clinically more similar to COVID than bacterial pneumonia Remain in COVID isolation until then Currently up to 5lpm form baseline 2lpm CAD s/p cabg Chest pain CHB s/p pacemaker Follows with Dr Muhammad Trend troponins Dr Muhammad consulted, appreciate recs Monitor on telemetry Echo ordered dementia Continue home meds DVT ppx: Lovenox Clinical Quality Measures AMI/AHF: ASA po Prior to arrival: Yes (324 MG PER EMS) CRIS LENNON MD Nov 25, 2020 15:35
[2020-11-25] MEDS: SERTRALINE 50 MG (ZOLOFT) TABLET PO SCH (18:09)
[2020-11-25] MEDS: RT-ALBUTEROL HFA 8.5 GM INHALER IH SCH ×2 (18:54→22:54)
[2020-11-25] MEDS ORDERED: NON-FORMULARY MEDICATION 1 EA EA (Sertraline HCl 25 MG) PO SCH (19:00)
[2020-11-25 19:57] VITALS: BP 121/80
[2020-11-25] MEDS ORDERED: NON-FORMULARY MEDICATION 1 EA EA (Docusate Sodium (Stool Softener) 100 MG) PO SCH (21:00)
[2020-11-25] MEDS ORDERED: NON-FORMULARY MEDICATION 1 EA EA (Pravastatin Sodium 80 MG) PO SCH (21:00)
[2020-11-25 23:51] VITALS: BP 121/71
[2020-11-26] MEDS: RT-ALBUTEROL HFA 8.5 GM INHALER IH SCH ×5 (02:51→22:58)
[2020-11-26 03:21] VITALS: BP 117/58
[2020-11-26 05:32] LABS: HEMATOCRIT 39 % (40-54); HEMOGLOBIN 12.4 g/dL (13.3-17.7); MEAN CORPUSCULAR HEMOGLOBIN 31 pg (25-34); MEAN CORPUSCULAR HGB CONC 32 g/dL (32-36); MEAN CORPUSCULAR VOLUME 97 fL (80-99); MEAN PLATELET VOLUME 10.8 fL (9.0-12.2); PLATELET COUNT 146 10^3/uL (130-400); WHITE BLOOD COUNT 12.6 10^3/uL (4.3-11.0)
[2020-11-26 05:41] LABS: POTASSIUM 4.7 MMOL/L (3.6-5.0)
[2020-11-26 05:42] LABS: CALCIUM 9.7 MG/DL (8.5-10.1)
[2020-11-26 05:44] LABS: TOTAL PROTEIN 7.1 GM/DL (6.4-8.2)
[2020-11-26 05:45] LABS: BILIRUBIN,TOTAL 0.9 MG/DL (0.1-1.0)
[2020-11-26 05:47] LABS: CREATININE SERUM 1.7 MG/DL (0.60-1.30)
[2020-11-26] MEDS: CATHETER FLUSH 10 ML SYR IV SCH ×3 (06:00→22:17)
[2020-11-26 08:04] VITALS: BP 110/60
--- NOTE | 2020-11-26 08:40 | Cardiology Progress Note ---
Subjective Date Seen by Provider: Nov 26, 2020 Time Seen by Provider: 08:33 Subjective/Events-last exam Patient seen from doorway as he is still PUI, repeating COVID test this morning. Per nurse, appears slightly less confused. Denies chest pain. Review of Systems General: No Chills, No Night Sweats; Fatigue; No Malaise, No Appetite, No Other HEENT: No Head Aches, No Visual Changes, No Eye Pain, No Ear Pain, No Dysphasia, No Sinus Congestion, No Post Nasal Drip, No Sore Throat, No Other Pulmonary: No Dyspnea, No Cough, No Pleuritic Chest Pain, No Other Cardiovascular: No: Chest Pain, Palpitations, Orthopnea, Paroxysmal Noc. Dyspnea, Edema, Lt Headedness, Other Focused Exam Lactate Level 11/25/20 08:26: Lactic Acid Level 4.49*H 11/25/20 10:50: Lactic Acid Level 2.32*H 11/25/20 14:25: Lactic Acid Level 1.67 Objective-Cardiology Exam Last Set of Vital Signs Vital Signs 11/26/20 11/26/20 08:04 10:35 Temp 37.0 Pulse 75 Resp 22 B/P (MAP) 110/60 (77) Pulse Ox 91 O2 Delivery Room Air O2 Flow Rate 5.00 I&O Intake and Output 11/26/20 00:00 Intake Total 100 ml Output Total 600 ml Balance -500 ml Intake Oral 100 ml Output Urine Total 600 ml Daily Weight Change No General: Alert, Cooperative HEENT: Atraumatic, PERRLA Neck: Supple, No JVD, No Thyromegaly Lungs: Normal Air Movement, Other (Bilateral rhonchi) Heart: Regular Rate, Normal S1, Normal S2, No Murmurs Abdomen: Normal Bowel Sounds, Soft, No Tenderness, No Hepatosplenomegaly, No Masses Extremities: No Clubbing, No Cyanosis, No Edema, Normal Pulses, No Tenderness/Swelling Skin: No Rashes, No Breakdown, No Significant Lesion Neuro: Normal Gait, Normal Speech, Strength at 5/5 X4 Ext, Normal Tone, Sensation Intact Psych/Mental Status: Mental Status NL, Mood NL Results Lab Laboratory Tests 11/26/20 05:17 11/26/20 10:05 A/P-Cardiology Admission Diagnosis Pneumonia CAD Elevated BNP CHB s/p PPM Assessment/Plan Sepsis, pneumonia- started on antibiotic. Management per medical services. COVID PUI, repeat testing pending. Chest pain, nonspecific etiology, EKG showing paced rhythm, mildly elevated troponin, trending down. Was seen in our office earlier this month and scheduled for stress test. At this point I do not recommend doing a stress test. 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 Will start low dose beta ruperto, continue to monitor Complete heart block, s/p dual chamber PPM implantation done February 28, 2020. Interrogation done October 06, 2020 showing good sensing and capture activity, no arrhythmia was detected. Continue to monitor Coronary artery disease, s/p CABG in the past. Hypertension, controlled, continue to monitor. Hyperlipidemia, continue to monitor as outpatient Renal insufficiency, continue to monitor renal function. Dementia Patient was seen and evaluated with Deanna, examination performed, management plan was discussed, agree with the current scribed note, I made few changes to the note using Italic font Patient was seen at bedside sitting comfortably, feeling better today Receiving antibiotic for pneumonia Covid and influenza test were negative Congestive heart failure, chronic left ventricular systolic dysfunction, ischemic cardiomyopathy Permanent pacemaker Supervisory-Addendum Brief Supervisory Addendum Participated in pt care: history, MDM, physical Personally performed: exam, history, MDM Care discussed with: JUANITA Results interpretation: Verified all documentation DEANNA GAONA Nov 26, 2020 08:40 SLADE LOPEZ MD Nov 26, 2020 12:51
[2020-11-26] MEDS: cefTRIAXone 1,000 MG/SWFI 10 ML IV PUSH IV SCH ×2 (08:48)
[2020-11-26] MEDS: PANTOPRAZOLE 40 MG (PROTONIX) TAB PO SCH (08:49)
[2020-11-26] MEDS: AZITHROMYCIN 500 MG/NS 250 ML IVPB IV SCH ×2 (08:49)
[2020-11-26] MEDS: MEMANTINE 5 MG (NAMENDA) TABLET PO SCH (08:49)
[2020-11-26] MEDS: DOCUSATE SODIUM 100 MG (COLACE) CAP PO SCH (08:49)
[2020-11-26] MEDS ORDERED: NON-FORMULARY MEDICATION 1 EA EA (Omeprazole 40 MG) PO SCH (09:00)
[2020-11-26] MEDS ORDERED: MEMANTINE 7 MG PO SCH (09:00)
--- NOTE | 2020-11-26 10:02 | Progress Note - Hospitalist ---
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 Patient reports that he is here because he has "the shakes" and then mimicked with his arms shaking. Otherwise when asked if he had any other symptoms he said "I think I'm alive." and laughed. All other history is obtained from the records. Per Er He woke up with left sided chest pain, SOB, jaw pain, headache, and myalagias. He apparently had a low grade fever as well with nausea and vomiting. He is chronically on oxygen at 2lpm. He was found to have likely pneumonia and was admitted for sepsis. Subjective/Events-last exam Pt reports feeling much better today. Informed him that repeat COVID swab was negative and we will take him out of isolation. Called and updated his stepson as well. Focused Exam Lactate Level 11/25/20 08:26: Lactic Acid Level 4.49*H 11/25/20 10:50: Lactic Acid Level 2.32*H 11/25/20 14:25: Lactic Acid Level 1.67 Objective Exam Vital Signs Vital Signs Date Time Temp Pulse Resp B/P (MAP) Pulse Ox O2 Delivery O2 Flow Rate FiO2 11/26/20 08:04 37.0 75 22 110/60 (77) 95 Nasal Cannula 5.00 Capillary Refill : Less Than 3 Seconds General Appearance: No Apparent Distress, Chronically ill Respiratory: Lungs Clear, No Respiratory Distress Cardiovascular: Regular Rate, Rhythm, No Murmur Neurologic/Psychiatric: Alert, Other (oriented to person and place) Results/Procedures Lab Laboratory Tests 11/26/20 05:17 Patient resulted labs reviewed. Imaging: Reviewed Imaging Report Assessment/Plan Assessment and Plan Assess & Plan/Chief Complaint Severe Sepsis due to pneumonia Acute on chronic respiratory failure Continue on abx for CAP coverage Repeat COVID negative- will take out of isolation Remain in COVID isolation until then Currently at 5lpm still from baseline 2lpm CAD s/p cabg Chest pain CHB s/p pacemaker Follows with Dr Muhammad Trend troponin, trended down Dr Muhammad consulted, appreciate recs Monitor on telemetry Echo with EF of 30%, grade 1 dCHF dementia Continue home meds DVT ppx: Lovenox Diagnosis/Problems Diagnosis/Problems (1) Sepsis Status: Acute Qualifiers: Sepsis type: sepsis due to unspecified organism Sepsis acute organ dysfunction status: with acute organ dysfunction Severe sepsis acute organ dysfunction type: acute respiratory failure Acute respiratory failure type: with hypoxia Severe sepsis shock status: without septic shock Qualified Codes: A41.9 - Sepsis, unspecified organism; R65.20 - Severe sepsis without septic shock; J96.01 - Acute respiratory failure with hypoxia (2) Pneumonia Status: Acute Qualifiers: Pneumonia type: due to unspecified organism Laterality: bilateral Lung location: unspecified part of lung Qualified Codes: J18.9 - Pneumonia, unspecified organism (3) CAD (coronary artery disease) Status: Chronic Qualifiers: Coronary Disease-Associated Artery/Lesion type: unspecified vessel or lesion type [place] vs. transplanted heart: [place] heart Associated angina: unspecified whether angina present Qualified Codes: I25.10 - Atherosclerotic heart disease of [place] coronary artery without angina pectoris (4) Advanced age Status: Chronic Clinical Quality Measures AMI/AHF: ASA po Prior to arrival: Yes (324 MG PER EMS) CRIS FISHER MD Nov 26, 2020 10:02
[2020-11-26 10:12] LABS: HEMATOCRIT 37 % (40-54); MEAN CORPUSCULAR HEMOGLOBIN 31 pg (25-34); MEAN CORPUSCULAR HGB CONC 32 g/dL (32-36); MEAN CORPUSCULAR VOLUME 97 fL (80-99); MEAN PLATELET VOLUME 10.6 fL (9.0-12.2); PLATELET COUNT 134 10^3/uL (130-400); WHITE BLOOD COUNT 11.3 10^3/uL (4.3-11.0)
[2020-11-26 10:37] LABS: CALCIUM 9.6 MG/DL (8.5-10.1); CREATININE SERUM 1.62 MG/DL (0.60-1.30); POTASSIUM 4.5 MMOL/L (3.6-5.0)
--- NOTE | 2020-11-26 10:49 | Diagnostic Imaging Report ---
INDICATION: Follow-up pneumonia. TIME OF EXAM: 10:20 AM Correlation is made with prior chest from 11/25/2020. Heart size is stable. There are changes of median sternotomy. Cardiac pacer is in place. There is patchy airspace infiltrate in the right base, similar to yesterday. Left lung is clear. There is no effusion or pneumothorax. IMPRESSION: Continued patchy right basilar pneumonia. Dictated by: Dictated on workstation # [id number]
[2020-11-26 12:00] VITALS: BP 112/64
[2020-11-26 16:00] VITALS: BP 120/74
[2020-11-26] MEDS ORDERED: HALOPERIDOL 5 MG/ML (HALDOL) VIAL ONE (17:23)
[2020-11-26] MEDS ORDERED: HALOPERIDOL 5 MG/ML (HALDOL) VIAL IV ONE (17:30)
[2020-11-26] MEDS ORDERED: LORazepam 0.5 MG (ATIVAN) TABLET PO PRN (17:30)
[2020-11-26] MEDS: SERTRALINE 50 MG (ZOLOFT) TABLET PO SCH (18:17)
[2020-11-26 20:00] VITALS: BP 120/74
[2020-11-27] MEDS: RT-ALBUTEROL HFA 8.5 GM INHALER IH SCH ×7 (02:16→22:34)
[2020-11-27] MEDS: CATHETER FLUSH 10 ML SYR IV SCH ×3 (06:40→20:15)
[2020-11-27] MEDS: cefTRIAXone 1,000 MG/SWFI 10 ML IV PUSH IV SCH ×2 (08:52)
[2020-11-27] MEDS: DOCUSATE SODIUM 100 MG (COLACE) CAP PO SCH (08:52)
[2020-11-27] MEDS: PANTOPRAZOLE 40 MG (PROTONIX) TAB PO SCH (08:52)
[2020-11-27] MEDS: AZITHROMYCIN 500 MG/NS 250 ML IVPB IV SCH ×2 (08:52)
[2020-11-27] MEDS: MEMANTINE 5 MG (NAMENDA) TABLET PO SCH (08:52)
[2020-11-27 08:58] VITALS: BP 130/77
--- NOTE | 2020-11-27 09:18 | Cardiology Progress Note ---
Subjective Date Seen by Provider: Nov 27, 2020 Time Seen by Provider: 09:16 Subjective/Events-last exam Patient is laying down in bed. Having no new complaint. Feeling better. Review of Systems General: No Chills, No Night Sweats; Fatigue; No Malaise, No Appetite, No Other HEENT: No Head Aches, No Visual Changes, No Eye Pain, No Ear Pain, No Dysphasia, No Sinus Congestion, No Post Nasal Drip, No Sore Throat, No Other Pulmonary: No Dyspnea, No Cough, No Pleuritic Chest Pain, No Other Cardiovascular: No: Chest Pain, Palpitations, Orthopnea, Paroxysmal Noc. Dyspnea, Edema, Lt Headedness, Other Focused Exam Lactate Level 11/25/20 08:26: Lactic Acid Level 4.49*H 11/25/20 10:50: Lactic Acid Level 2.32*H 11/25/20 14:25: Lactic Acid Level 1.67 Objective-Cardiology Exam Last Set of Vital Signs Vital Signs 11/27/20 08:58 Temp 36.6 Pulse 69 Resp 16 B/P (MAP) 130/77 (94) Pulse Ox 96 O2 Delivery Nasal Cannula O2 Flow Rate 2.00 I&O Intake and Output 11/27/20 00:00 Intake Total 900 ml Output Total 1000 ml Balance -100 ml Intake Oral 900 ml Output Urine Total 1000 ml General: Alert, Cooperative HEENT: Atraumatic, PERRLA Neck: Supple, No JVD, No Thyromegaly Lungs: Normal Air Movement, Other (Bilateral rhonchi) Heart: Regular Rate, Normal S1, Normal S2, No Murmurs Abdomen: Normal Bowel Sounds, Soft, No Tenderness, No Hepatosplenomegaly, No Masses Extremities: No Clubbing, No Cyanosis, No Edema, Normal Pulses, No Tenderness/Swelling Skin: No Rashes, No Breakdown, No Significant Lesion Neuro: Normal Gait, Normal Speech, Strength at 5/5 X4 Ext, Normal Tone, Sensation Intact Psych/Mental Status: Mental Status NL, Mood NL Results Lab Laboratory Tests 11/26/20 10:05 A/P-Cardiology Admission Diagnosis Pneumonia CAD Elevated BNP CHB s/p PPM Assessment/Plan Sepsis, pneumonia, receiving antibiotics, managed by primary care physician Chest pain, nonspecific etiology, EKG showing paced rhythm, mildly elevated troponin, trending down. Was seen in our office earlier this month and scheduled for stress test. At this point I do not recommend doing a stress test. 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 Tolerating low-dose beta- ruperto Complete heart block, s/p dual chamber PPM implantation done February 28, 2020. Interrogation done October 06, 2020 showing good sensing and capture activity, no arrhythmia was detected. Continue to monitor Coronary artery disease, s/p CABG in the past. Hypertension, controlled, continue to monitor. Hyperlipidemia, continue to monitor as outpatient Renal insufficiency, continue to monitor renal function. Dementia SLADE LOPEZ MD Nov 27, 2020 09:18
[2020-11-27] MEDS ORDERED: ASPIRIN E.C. 325 MG (ECOTRIN) TABLET PO ONE (09:30)
--- NOTE | 2020-11-27 11:48 | Physical Therapy Evaluation ---
PT Evaluation-General Medical Diagnosis Admission Date Nov 25, 2020 at 11:12 Medical Diagnosis: pneumonia/sepsis/CP Onset Date: Nov 25, 2020 Therapy Diagnosis Therapy Diagnosis: debility/weakness Precautions Precautions/Isolations: Fall Prevention, Standard Precautions Referral Physician: Citlalli Reason for Referral: Evaluation/Treatment Medical History Pertinent Medical History: CABG, CAD, Renal Insufficiency Current History EMS secondary to fever, N&V and diarrhea Reviewed History: Yes Social History Home: Single Level Current Living Status: Other Family Entry Into Home: Level Entry Prior Prior Level of Function SCALE: Activities may be completed with or without assistive devices. 4-Wyllqxbhxm-rrmygre completes the activity by him/herself with no assistance from a helper. 5-Set-up or Clean-up Assistance-helper sets up or cleans up; patient completes activity. [place] assists only prior to or following the activity. 4-Supervision or Touching Assistance-helper provides verbal cues and/or touching/steadying and/or contact guard assistance as patient completes activity. Assistance may be provided throughout the activity or intermittently. 3-Partial/Moderate Assistance-helper does LESS THAN HALF the effort. [place] lifts, holds or supports trunk or limbs, but provides less than half the effort. 2-Substantial/Maximal Assistance-helper does MORE THAN HALF the effort. [place] lifts or holds trunk or limbs and provides more than half the effort. 4-Xmdbpcseh-fjbyyn does ALL the effort. Patient does none of the effort to complete the activity. Or, the assistance of 2 or more helpers is required for the patient to complete the activity. If activity was not attempted, code reason: 7-Patient Refused. 9-Not Applicable-not attempted and the patient did not perform the activity before the current illness, exacerbation or injury. 10-Not Attempted due to Environmental Limitations-(lack of equipment, weather restraints, etc.). 88-Not Attempted due to Medical Conditions or Safety Concerns. Bed Mobility: 6 Transfers (B,C,W/C): 6 Gait: 6 Indoor Mobility (Ambulation): Independent Prior Devices Use: Walker PT Evaluation-Current Subjective Patient agrees to PT. Objective Patient Orientation: Normal For Age (severe [place] with hearing aids in place) Attachments: Oxygen, [place]aud Catheter ROM/Strength ROM Lower Extremities bilateral LE WFL Strength Lower Extremities 3/5 grossly bilateral LE Integumentary/Posture Bladder Incontinence: Persaud Cath Posture trunk and bilateral knee flexed posture Neuromuscular (Tone, Coordination, Reflexes) diminished coordination due to weakness/deconditioned Sensory Vision: Functional Hearing: Impaired Transfers Lying to Sitting/Side of Bed(Q: 3 Sit to Stand (QC): 3 Chair/Xmf-zu-Mtsia Xfer(QC): 3 (patient off balance with turning to sit in chair and required VC's for hand placement to chair for safety) mod assist with all mobility Gait Does the Patient Walk?: Yes Mode of Locomotion: Walk Anticipated Mode of Locomotion: Walk Walk 10 feet (QC): 3 Walk 50 ft with 2 Turns(QC): 3 Walk 150 ft (QC): 3 Distance: 150' Gait Assistive Device: FWW Comments/Gait Description WBOS/shuffle gait sequence Balance Sitting Static: Fair Sitting Dynamic: Fair Standing Static: Fair Standing Dynamic: Fair Assessment/Needs 89 y.o. male, will benefit from skilled PT to address functional strength and mobility to improve current LOF to safely return to home with family. 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 Infrastructure Architect Goals Time Frame: Dec 05, 2020 Roll Left & Right (QC): 5 Sit to Lying (QC): 5 Lying-Sitting on Side/Bed(QC): 5 Sit to Stand (QC): 5 Chair/Mjp-ko-Dwzoj Xfer(QC): 5 Toilet Transfer (QC): 5 Does the Patient Walk: Yes Walk 10 feet (QC): 5 Walk 50ft with 2 Turns (QC): 5 Walk 150 ft (QC): 5 PT Plan Problem List Problem List: Activity Tolerance, Functional Strength, Safety, Balance, Gait, Transfer, Bed Mobility Treatment/Plan Treatment Plan: Continue Plan of Care Treatment Plan: Bed Mobility, Education, Functional Activity Tone, Functional Strength, Gait, Safety, Therapeutic Exercise, Transfers Treatment Duration: Dec 05, 2020 Frequency: 6 times per week Estimated Hrs Per Day: .25 hour per day Time/GCodes Time In: 1120 Time Out: 1134 Total Billed Treatment Time: 14 Total Billed Treatment 1 visit EVMod 14 min REN MAGANA PT Nov 27, 2020 11:48
[2020-11-27 12:00] VITALS: BP 121/68
--- NOTE | 2020-11-27 13:21 | Progress Note - Hospitalist ---
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 Patient reports that he is here because he has "the shakes" and then mimicked with his arms shaking. Otherwise when asked if he had any other symptoms he said "I think I'm alive." and laughed. All other history is obtained from the records. Per Er He woke up with left sided chest pain, SOB, jaw pain, headache, and myalagias. He apparently had a low grade fever as well with nausea and vomiting. He is chronically on oxygen at 2lpm. He was found to have likely pneumonia and was admitted for sepsis. Subjective/Events-last exam pt reports doing well today. Somewhat sleepy but no other issues. Discussed with te Olivas that plan for DC would depend on his strength and ability to ambulate. PT ordered. Focused Exam Lactate Level 11/25/20 08:26: Lactic Acid Level 4.49*H 11/25/20 10:50: Lactic Acid Level 2.32*H 11/25/20 14:25: Lactic Acid Level 1.67 Objective Exam Vital Signs Vital Signs Date Time Temp Pulse Resp B/P (MAP) Pulse Ox O2 Delivery O2 Flow Rate FiO2 11/27/20 13:00 82 11/27/20 10:12 97 2.00 11/27/20 08:58 36.6 16 130/77 (94) Nasal Cannula Capillary Refill : Less Than 3 Seconds General Appearance: No Apparent Distress, Chronically ill Respiratory: Lungs Clear, No Respiratory Distress Cardiovascular: Regular Rate, Rhythm, No Murmur Gastrointestinal: Normal Bowel Sounds, Non Tender, Soft Neurologic/Psychiatric: Alert, Oriented x3 Results/Procedures Lab Patient resulted labs reviewed. Imaging: Reviewed Imaging Report Assessment/Plan Assessment and Plan Assess & Plan/Chief Complaint Severe Sepsis due to pneumonia Acute on chronic respiratory failure Continue on abx for CAP coverage Repeat COVID negative Remain in COVID isolation until then Currently at 2lpm which is baseline PT/OT CAD s/p cabg Chest pain CHB s/p pacemaker Follows with Dr Muhammad Trend troponin, trended down Dr Muhammad consulted, appreciate recs Monitor on telemetry Echo with EF of 30%, grade 1 dCHF dementia Continue home meds DVT ppx: Lovenox Diagnosis/Problems Diagnosis/Problems (1) Sepsis Status: Acute Qualifiers: Sepsis type: sepsis due to unspecified organism Sepsis acute organ dysfunction status: with acute organ dysfunction Severe sepsis acute organ dysfunction type: acute respiratory failure Acute respiratory failure type: with hypoxia Severe sepsis shock status: without septic shock Qualified Codes: A41.9 - Sepsis, unspecified organism; R65.20 - Severe sepsis without septic shock; J96.01 - Acute respiratory failure with hypoxia (2) Pneumonia Status: Acute Qualifiers: Pneumonia type: due to unspecified organism Laterality: bilateral Lung location: unspecified part of lung Qualified Codes: J18.9 - Pneumonia, unspecified organism (3) CAD (coronary artery disease) Status: Chronic Qualifiers: Coronary Disease-Associated Artery/Lesion type: unspecified vessel or lesion type [place] vs. transplanted heart: [place] heart Associated angina: unspecified whether angina present Qualified Codes: I25.10 - Atherosclerotic heart disease of [place] coronary artery without angina pectoris (4) Advanced age Status: Chronic Clinical Quality Measures AMI/AHF: ASA po Prior to arrival: Yes (324 MG PER EMS) CRIS FISHER MD Nov 27, 2020 13:21
[2020-11-27 15:51] VITALS: BP 107/67
[2020-11-27] MEDS: SERTRALINE 50 MG (ZOLOFT) TABLET PO SCH (18:19)
[2020-11-27 19:15] VITALS: BP 116/71
[2020-11-27 23:15] VITALS: BP 117/73
[2020-11-28] MEDS: RT-ALBUTEROL HFA 8.5 GM INHALER IH SCH ×3 (03:16→10:45)
[2020-11-28 03:30] VITALS: BP_SYST 117; BP_SYST 120; BP_DIAS 72; BP_DIAS 73
[2020-11-28] MEDS: CATHETER FLUSH 10 ML SYR IV SCH (03:38)
[2020-11-28 08:00] VITALS: BP 123/59
[2020-11-28] MEDS ORDERED: ASPIRIN E.C. 81 MG (ECOTRIN) TAB PO SCH (09:00)
[2020-11-28] MEDS: MEMANTINE 5 MG (NAMENDA) TABLET PO SCH (09:35)
[2020-11-28] MEDS: DOCUSATE SODIUM 100 MG (COLACE) CAP PO SCH (09:35)
[2020-11-28] MEDS: PANTOPRAZOLE 40 MG (PROTONIX) TAB PO SCH (09:35)
[2020-11-28] MEDS: AZITHROMYCIN 500 MG/NS 250 ML IVPB IV SCH ×2 (09:35)
[2020-11-28] MEDS: cefTRIAXone 1,000 MG/SWFI 10 ML IV PUSH IV SCH ×2 (09:35)
--- NOTE | 2020-11-28 09:57 | Cardiology Progress Note ---
Subjective Date Seen by Provider: Nov 28, 2020 Time Seen by Provider: 09:55 Subjective/Events-last exam Patient was seen and evaluated, sitting in bed, eating breakfast. Denied any chest pain Review of Systems General: No Chills, No Night Sweats; Fatigue, Malaise; No Appetite, No Other HEENT: No Head Aches, No Visual Changes, No Eye Pain, No Ear Pain, No Dysphasia, No Sinus Congestion, No Post Nasal Drip, No Sore Throat, No Other Pulmonary: No Dyspnea, No Cough, No Pleuritic Chest Pain, No Other Cardiovascular: No: Chest Pain, Palpitations, Orthopnea, Paroxysmal Noc. Dyspnea, Edema, Lt Headedness, Other Focused Exam Lactate Level 11/25/20 10:50: Lactic Acid Level 2.32*H 11/25/20 14:25: Lactic Acid Level 1.67 Objective-Cardiology Exam Last Set of Vital Signs Vital Signs 11/28/20 11/28/20 08:00 09:28 Temp 36.4 Pulse 77 Resp 17 B/P (MAP) 123/59 (80) Pulse Ox 96 O2 Delivery Nasal Cannula O2 Flow Rate 2.00 I&O Intake and Output 11/28/20 00:00 Intake Total 1105 ml Output Total 875 ml Balance 230 ml Intake Oral 855 ml IV Total 250 ml Output Urine Total 875 ml # Bowel Movements 1 General: Alert, Cooperative HEENT: Atraumatic, PERRLA Neck: Supple, No JVD, No Thyromegaly Lungs: Normal Air Movement, Other (Bilateral rhonchi) Heart: Regular Rate, Normal S1, Normal S2, No Murmurs Abdomen: Normal Bowel Sounds, Soft, No Tenderness, No Hepatosplenomegaly, No Masses Extremities: No Clubbing, No Cyanosis, No Edema, Normal Pulses, No Tenderness/Swelling Skin: No Rashes, No Breakdown, No Significant Lesion Neuro: Normal Gait, Normal Speech, Strength at 5/5 X4 Ext, Normal Tone, Sensation Intact Psych/Mental Status: Mental Status NL, Mood NL A/P-Cardiology Admission Diagnosis Pneumonia CAD Elevated BNP CHB s/p PPM Assessment/Plan Sepsis, pneumonia, improved significantly, feeling better, managed by primary care team Chest pain, nonspecific etiology, EKG showing paced rhythm, mildly elevated trop onin, trending down. Was seen in our office earlier this month and scheduled for stress test. At this point I do not recommend doing a stress test. 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 Interrogation done October 06, 2020 showing good sensing and capture activity, no arrhythmia was detected. Continue to monitor Coronary artery disease, s/p CABG in the past. Hypertension, controlled, continue to monitor. Hyperlipidemia, continue to monitor as outpatient Renal insufficiency, continue to monitor renal function. Dementia SLADE LOPEZ MD Nov 28, 2020 09:57
[2020-11-28] MEDS ORDERED: LOSARTAN 25 MG (COZAAR) TAB PO SCH (10:00)
--- NOTE | 2020-11-28 10:43 | Discharge Summary ---
Diagnosis/Chief Complaint Date of Admission Nov 25, 2020 at 11:12 Date of Discharge Admission Diagnosis Sepsis Primary Care No,Local Physician Discharge Diagnosis (1) Sepsis Status: Acute (2) Pneumonia Status: Acute (3) CAD (coronary artery disease) Status: Chronic (4) Advanced age Status: Chronic Discharge Summary Discharge Physical Exam Allergies: Coded Allergies: Penicillins (Verified Allergy, Unknown, 02/27/20) Vitals & I&Os Vital Signs Date Time Temp Pulse Resp B/P (MAP) Pulse Ox O2 Delivery O2 Flow Rate FiO2 11/28/20 12:00 11/28/20 10:45 93 2.00 11/28/20 09:28 Nasal Cannula 11/28/20 08:00 36.4 77 17 General Appearance: No Apparent Distress, Chronically ill Respiratory: Lungs Clear, No Respiratory Distress Cardiovascular: Regular Rate, Rhythm, No Murmur Gastrointestinal: Normal Bowel Sounds, Soft Hospital Course Patient was admitted due to sepsis from pneumonia. He was tested for Covid and was negative. He was treated with IV antibiotics and did very well. He was seen by physical therapy to work on strengthening due to debility from this. He was back to his baseline functional status upon discharge. He is to follow-up with his primary care doctor in the next week to follow-up this hospital stay. Labs (last 24 hrs) Microbiology 11/25/20 Blood Culture - Preliminary, Resulted No growth 11/25/20 Urine Culture - Preliminary, Resulted NO GROWTH Patient resulted labs reviewed. Imaging: Reviewed Imaging Report Discussion & Recommendations Discharge Planning: >30 minutes discharge planning Discharge Home Medications: Active Scripts Active Azithromycin 250 Mg Tablet 250 Mg PO DAILY Cephalexin 500 Mg Tablet 500 Mg PO BID Losartan Potassium 25 Mg Tablet 25 Mg PO DAILY Aspirin EC (Aspirin) 81 Mg Tablet.dr 81 Mg PO DAILY Metoprolol Succinate 25 Mg Tab.er.24h 25 Mg PO DAILY Reported Vitamin B-12 (Cyanocobalamin (Vitamin B-12)) 1,000 Mcg Tablet 1,000 Mcg PO DAILY Stool Softener (Docusate Sodium) 100 Mg Tablet 100 Mg PO BID Allergy Relief (Diphenhydramine HCl) 25 Mg Capsule 25 Mg PO DAILY Memantine HCl ER (Memantine HCl) 7 Mg Cap.spr.24 7 Mg PO DAILY Tylenol Arthritis (Acetaminophen) 650 Mg Tablet.er 1,300 Mg PO BID TAKES 2 (650MG) TABS Furosemide 20 Mg Tablet 20 Mg PO DAILY Pravastatin Sodium 80 Mg Tablet 80 Mg PO HS Sertraline HCl 25 Mg Tablet 25 Mg PO 1900 Omeprazole 40 Mg Capsule.dr 40 Mg PO DAILY Instructions to patient/family Please see electronic discharge instructions given to patient. Clinical Quality Measures AMI/AHF: ASA po Prior to arrival: Yes (324 MG PER EMS) Problem Qualifiers (1) Sepsis: Sepsis type: sepsis due to unspecified organism Sepsis acute organ dysfunction status: with acute organ dysfunction Severe sepsis acute organ dysfunction type: acute respiratory failure Acute respiratory failure type: with hypoxia Severe sepsis shock status: without septic shock Qualified Codes: A41.9 - Sepsis, unspecified organism; R65.20 - Severe sepsis without septic shock; J96.01 - Acute respiratory failure with hypoxia (2) Pneumonia: Pneumonia type: due to unspecified organism Laterality: bilateral Lung location: unspecified part of lung Qualified Codes: J18.9 - Pneumonia, unspecified organism (3) CAD (coronary artery disease): Coronary Disease-Associated Artery/Lesion type: unspecified vessel or lesion type [place] vs. transplanted heart: [place] heart Associated angina: unspecified whether angina present Qualified Codes: I25.10 - Atherosclerotic heart disease of [place] coronary artery without angina pectoris CRIS FISHER MD Nov 28, 2020 10:43
--- NOTE | 2020-11-28 10:47 | D/C HH Face to Face Order ---
D/C Face to Face Orders Instructions for Patient Via [facility], Patient Instructions/FollowUp: Please continue to take your medications as written. Please follow up with your primary care doctor to follow up this hospital stay. Physician to follow Patient: Dr Euceda Discharge Diet for Home: No Restrictions Patient Data-Allergies,Ht & Wt Patient Allergies: Coded Allergies: Penicillins (Verified Allergy, Unknown, 02/27/20) Home Health Need/Face to Face Date of Face to Face: Nov 28, 2020 Clinical Findings: Generalized weakness and fatigue, Shortness of breath I have seen Pt [id number]: Yes Discharged To: Home Diagnosis/Conditions: Pneumonia Patient is Homebound due to: [place] fall risk due to instabilty, Shortness of breath/distress Homebound Status Due to the above stated illness, injury or surgical procedure (medical condition or diagnosis) and associated clinical findings, the patient is homebound because of his/her inability to leave home except with aid of a supportive device and/or person AND leaving the home requires a considerable and taxing effort or is medically contraindicated. Pt req the following assistanc: Aid of another person, [facility] Home Health Nursing Orders Home Health Services Order: Nursing Services, [facility]-Evaluate & Treat, Physical Therapy-Evaluate & Treat Therapy Orders Therapy Orders: OT (must have SN or PT order), Physical Therapy Therapy Specific Orders: Eval assistive deivces, Teach enviro modifications/safety, Gait training, Increase strength/endurance Certify Stmt I certify that this patient is under my care and that I, a nurse practitioner or a physician; a clinic assistant working with me, had a face to face encounter that - meets the physician face to face encounter requirements with this patient as dated. CIRS FISHER MD Nov 28, 2020 10:46
[2020-11-28] MEDS ORDERED: CEPH500T PO (10:49)
[2020-11-28] MEDS ORDERED: LOSA25TA41 PO (10:49)
[2020-11-28] MEDS ORDERED: MTP25TSR PO (10:49)
[2020-11-28] MEDS ORDERED: ASPI-1238 PO (10:49)
[2020-11-28] MEDS ORDERED: AZIT250T12 PO (10:49)
--- NOTE | 2020-11-28 11:09 | Physical Therapy Daily Note ---
PT Daily Note-Current Subjective Pt is asleep on arrival. Pt remains somnolent throughout treatment. Mental Status Patient Orientation: Person, Place, Situation Transfers SCALE: Activities may be completed with or without assistive devices. 3-[id number]-[id number] completes the activity by him/herself with no assistance from a helper. 5-Set-up or Clean-up Assistance-helper sets up or cleans up; patient completes activity. [place] assists only prior to or following the activity. 4-Supervision or Touching Assistance-helper provides verbal cues and/or touching/steadying and/or contact guard assistance as patient completes activity. Assistance may be provided throughout the activity or intermittently. 3-Partial/Moderate Assistance-helper does LESS THAN HALF the effort. [place] li fts, holds or supports trunk or limbs, but provides less than half the effort. 2-Substantial/Maximal Assistance-helper does MORE THAN HALF the effort. [place] lifts or holds trunk or limbs and provides more than half the effort. 8-Jlyvdcbmv-tynvya does ALL the effort. Patient does none of the effort to complete the activity. Or, the assistance of 2 or more helpers is required for the patient to complete the activity. If activity was not attempted, code reason: 7-Patient Refused. 9-Not Applicable-not attempted and the patient did not perform the activity before the current illness, exacerbation or injury. 10-Not Attempted due to Environmental Limitations-(lack of equipment, weather restraints, etc.). 88-Not Attempted due to Medical Conditions or Safety Concerns. Roll Left & Right (QC): 3 Sit to Lying (QC): 3 Lying to Sitting/Side of Bed(Q: 3 Sit to Stand (QC): 3 Chair/Omq-lp-Qsenp Xfer(QC): 3 Gait Training Does the Patient Walk?: Yes Distance: 130ft Walk 10 feet (QC): 5 Walk 50 ft with 2 Turns(QC): 5 Gait Persons Needed: 1 Gait Assistive Device: FWW Pt is rigid and lethargic today. He was however, able to ambulate and transfer with minimal assistance. Assessment Current Status: Good Progress Pt is performing ambulation and transfers with minimal assistance. PT Fpc Goals City Treasurer Goals PT City Treasurer Goals Time Frame: Dec 05, 2020 Roll Left & Right (QC): 5 Sit to Lying (QC): 5 Lying-Sitting on Side/Bed(QC): 5 Sit to Stand (QC): 5 Chair/Xsx-yd-Exita Xfer(QC): 5 Toilet Transfer (QC): 5 Does the Patient Walk: Yes Walk 10 feet (QC): 5 Walk 50ft with 2 Turns (QC): 5 Walk 150 ft (QC): 5 PT Plan Treatment/Plan Treatment Plan: Continue Plan of Care Treatment Plan: Bed Mobility, Education, Functional Activity Tone, Functional Strength, Gait, Safety, Therapeutic Exercise, Transfers Treatment Duration: Dec 05, 2020 Frequency: 6 times per week Estimated Hrs Per Day: .25 hour per day Time/GCodes Time In: 1015 Time Out: 1033 Total Billed Treatment Time: 18 Total Billed Treatment 1, gt 18 PARVIN PANCHAL PT Nov 28, 2020 11:09
== END 2020-11-28 12:00 | disposition home health service (06) | DRG 871 ==
LOC: EDUNIT# 08:03 → ER 08:04 → CSD 11:12
PROVIDERS: ADMIT Family Medicine; ATTEND Family Medicine
PROC: 8E0ZXY6 Isolation (ICD-10-PCS; principal; 2020-11-25)
DX: A41.9 Sepsis, unspecified organism (principal); J18.9 Pneumonia, unspecified organism; J96.21 Acute and chronic respiratory failure with hypoxia; N17.9 Acute kidney failure, unspecified; I25.10 Atherosclerotic heart disease of native coronary artery without angina pectoris; Z66 Do not resuscitate; I11.9 Hypertensive heart disease without heart failure; I50.9 Heart failure, unspecified; J43.9 Emphysema, unspecified; R65.20 Severe sepsis without septic shock; I25.5 Ischemic cardiomyopathy; E78.5 Hyperlipidemia, unspecified; F03.90 Unspecified dementia, unspecified severity, without behavioral disturbance, psychotic disturbance, mood disturbance, and anxiety; Z95.0 Presence of cardiac pacemaker; Z79.899 Other long term (current) drug therapy; Z79.82 Long term (current) use of aspirin; Z95.1 Presence of aortocoronary bypass graft; Z88.0 Allergy status to penicillin; Z99.81 Dependence on supplemental oxygen; Z20.822 Contact with and (suspected) exposure to COVID-19; Z87.891 Personal history of nicotine dependence
CPT/HCPCS: 36415; 36600; 51702; 71045; 80048; 80053; 81000; 82550; 82805; 83605; 83880; 84145; 84484; 85025; 85027; 85610; 85730; 86141; 87040; 87088; 87636; 93005; 93306; 94640; 99291

== ENCOUNTER 2020-11-30 09:07 | Emergency (ER) | payer MEDICARE, MEDICAID ==
[~2020-11-30] VITALS: Ht 182 cm; Wt 180.2 kg
[~2020-11-30 09:07] MED LIST changes: +ASPI-1238 PO; +AZIT250T12 PO; +CEPH500T PO; +CYAN-41 PO; +DIPH-581 PO; +DOCU100T7 PO; +LOSA25TA41 PO; +MEMA7CAP2 PO; +MTP25TSR PO
[2020-11-30 09:43] LABS: BASOPHILS % (AUTO) 0 % (0-10); BILIRUBIN,URINE NEGATIVE (NEGATIVE); CLARITY,URINE CLEAR; COLOR,URINE YELLOW; EOSINOPHILS # (AUTO) 0.1 10^3/uL (0.0-0.3); EOSINOPHILS % (AUTO) 1 % (0-10); GLUCOSE, URINE (UA) NEGATIVE (NEGATIVE); HEMATOCRIT 37 % (40-54); HEMOGLOBIN 11.9 g/dL (13.3-17.7); KETONES,URINE NEGATIVE (NEGATIVE); LEUKOCYTE ESTERASE ,URINE NEGATIVE (NEGATIVE); LYMPHOCYTES # (AUTO) 0.9 10^3/uL (1.0-4.0); LYMPHOCYTES % (AUTO) 10 % (12-44); MEAN CORPUSCULAR HEMOGLOBIN 31 pg (25-34); MEAN CORPUSCULAR HGB CONC 32 g/dL (32-36); MEAN CORPUSCULAR VOLUME 96 fL (80-99); MEAN PLATELET VOLUME 10.6 fL (9.0-12.2); MONOCYTES # (AUTO) 0.8 10^3/uL (0.0-1.0); MONOCYTES % (AUTO) 9 % (0-12); NEUTROPHILS # (AUTO) 7.1 10^3/uL (1.8-7.8); NEUTROPHILS % (AUTO) 79 % (42-75); NITRITE,URINE NEGATIVE (NEGATIVE); PH,URINE 5.5 (5-9); PLATELET COUNT 187 10^3/uL (130-400); PROTEIN,URINE TRACE (NEGATIVE); WHITE BLOOD COUNT 8.9 10^3/uL (4.3-11.0)
[2020-11-30 09:48] LABS: ABG BASE EXCESS -0.1 MMOL/L (-2.5-2.5); ABG OXYGEN SATURATION 93 % (94-100); ABG PCO2 45 MMHG (35-45); ABG PH 7.36 (7.37-7.43); ABG PO2 70 MMHG (79-93); ABG TCO2 26.1 MMOL/L (21.0-31.0)
[2020-11-30 09:51] LABS: ALLENS TEST YES-POS; INSPIRED O2 4L; VENTILATOR NO
[2020-11-30 09:52] LABS: PATIENT TEMP 98.3
[2020-11-30 09:53] LABS: BACTERIA,URINE TRACE /HPF; RBC,URINE 0-2 /HPF; SQUAMOUS EPITHELIAL CELL,UR 0-2 /HPF
--- NOTE | 2020-11-30 09:57 | ED Chest Pain ---
General Chief Complaint: Trauma-Non Activation Stated Complaint: WEAKNESS,FALL Nursing Triage Note: EMS REPORTS BEING CALLED FOR FALL, WEAKNESS, AND LETHARGY. PT IS POOR HISTORIAN. PT STATES HE DID FALL, LOC, HIT HEAD, DENIES ANY PAIN. PT WAS RECENTLY RELEASED FROM HOSPITAL WITH PNA AND WEAKNESS. PT STATES TODAY HE FEELS WEAK, DENIES SOA, FEVER, CHILLS, COUGH. Source: patient Exam Limitations: no limitations History of Present Illness Date Seen by Provider: Nov 30, 2020 Time Seen by Provider: 08:59 Initial Comments Patient to the ER by EMS from home with chief complaint he was discharged home from having pneumonia about 2 days ago. He has been having some falls struck his head loss of consciousness and is weak. Denies using blood thinners. He has a heart history and states he is on aspirin. No chest pain shortness of air nausea vomiting reflux. No pain elsewhere. Denies head or neck tenderness. No numbness. States she just feels weak and his legs give out underneath him. Son-in-law reports he has been living with him and had a fall and he had to get some help to get him up off the ground because he is so weak. He is looking into placement at [facility] and has an appointment to meet with them tomorrow. Allergies and Home Medications Allergies Coded Allergies: Penicillins (Verified Allergy, Unknown, 02/27/20) Home Medications Acetaminophen 650 Mg Tablet.er, 1,300 MG PO BID, (Reported) TAKES 2 (650MG) TABS Aspirin 81 Mg Tablet.dr, 81 MG PO DAILY Prescribed by: CRIS FISHER on 11/28/20 1049 Azithromycin 250 Mg Tablet, 250 MG PO DAILY Prescribed by: CRIS FISHER on 11/28/20 1049 Cephalexin 500 Mg Tablet, 500 MG PO BID Prescribed by: CRIS FISHER on 11/28/20 1049 Cyanocobalamin (Vitamin B-12) 1,000 Mcg Tablet, 1,000 MCG PO DAILY, (Reported) Diphenhydramine HCl 25 Mg Capsule, 25 MG PO DAILY, (Reported) Docusate Sodium 100 Mg Tablet, 100 MG PO BID, (Reported) Furosemide 20 Mg Tablet, 20 MG PO DAILY, (Reported) Losartan Potassium 25 Mg Tablet, 25 MG PO DAILY Prescribed by: CRIS FISHER on 11/28/20 1049 Memantine HCl 7 Mg Cap.spr.24, 7 MG PO DAILY, (Reported) Metoprolol Succinate 25 Mg Tab.er.24h, 25 MG PO DAILY Prescribed by: CRIS FISHER on 11/28/20 1049 Omeprazole 40 Mg Capsule.dr, 40 MG PO DAILY, (Reported) Pravastatin Sodium 80 Mg Tablet, 80 MG PO HS, (Reported) Sertraline HCl 25 Mg Tablet, 25 MG PO 1900, (Reported) Patient Home Medication List Home Medication List Reviewed: Yes Review of Systems Review of Systems Constitutional: No chills, No diaphoresis; fever (100.9 per EMS); No malaise EENTM: No Blurred Vision, No Double Vision Respiratory: Denies Cough, Denies Shortness of Air Cardiovascular: Denies Chest Pain, Denies Lightheadedness Gastrointestinal: Denies Constipated, Denies Diarrhea, Denies Nausea Genitourinary: Denies Burning, Denies Discharge Musculoskeletal: No back pain, No joint pain Skin: No dryness, No pruritus, No rash Psychiatric/Neurological: Denies Anxiety, Denies Depressed, Denies Headache All Other Systems Reviewed Negative Unless Noted: Yes Past Nndjgiy-Frizyi-Qthonp Hx Patient Social History Tobacco Use?: No Substance use?: No Pt feels they are or have been: No Immunizations Up To Date First/Initial COVID19 Vaccinat: MAR 2020 Second COVID19 Vaccination Reinaldo: APR 2020 Past Medical History Surgery/Hospitalization HX: RELEASED FROM HOSPITAL 2 DAYS AGO Surgeries: Yes CABG, Orthopedic Respiratory: Yes (Chronic hypoxia, uses nasal cannula) Emphysema Cardiac: Yes Coronary Artery Disease, Irregular Heartbeat Neurological: No Genitourinary: Yes ("Urinary problems") Renal Failure Gastrointestinal: No Musculoskeletal: No Endocrine: No HEENT: No Cancer: No Psychosocial: No Integumentary: No Family Medical History No Pertinent Family Hx Physical Exam Vital Signs Vital Signs - First Documented 11/30/20 09:11 Temp 36.8 Pulse 80 Resp 15 B/P (MAP) 119/55 (76) Pulse Ox 94 O2 Delivery Nasal Cannula O2 Flow Rate 4.00 Capillary Refill : Less Than 3 Seconds Height, Weight, BMI Height: '" Weight: lbs. oz. kg; 54.00 BMI Method: General Appearance: Chronically ill, Mild Distress HEENT: PERRL/EOMI, Pharynx Normal; No Moist Mucous Membranes Neck: Full Range of Motion, Normal Inspection Respiratory: No Accessory Muscle Use, No Respiratory Distress Cardiovascular: Regular Rate, Rhythm, No Edema, Normal Peripheral Pulses Gastrointestinal: Normal Bowel Sounds Extremity: Normal Capillary Refill, Normal Inspection, No Pedal Edema Neurologic/Psychiatric: Alert, Oriented x3, Normal Mood/Affect Skin: Normal Color, Warm/Dry Progress/Results/Core Measures Results/Orders Lab Results Laboratory Tests Test 11/30/20 09:22 11/30/20 09:30 11/30/20 10:14 Range/Units White Blood Count 8.9 4.3-11.0 10^3/uL Red Blood Count 3.82 L 4.30-5.52 10^6/uL Hemoglobin 11.9 L 13.3-17.7 g/dL Hematocrit 37 L 40-54 % Mean Corpuscular Volume 96 80-99 fL Mean Corpuscular Hemoglobin 31 25-34 pg Mean Corpuscular Hemoglobin Concent 32 32-36 g/dL Red Cell Distribution Width 12.5 10.0-14.5 % Platelet Count 187 130-400 10^3/uL Mean Platelet Volume 10.6 9.0-12.2 fL Immature Granulocyte % (Auto) 1 % Neutrophils (%) (Auto) 79 H 42-75 % Lymphocytes (%) (Auto) 10 L 12-44 % Monocytes (%) (Auto) 9 0-12 % Eosinophils (%) (Auto) 1 0-10 % Basophils (%) (Auto) 0 0-10 % Neutrophils # (Auto) 7.1 1.8-7.8 10^3/uL Lymphocytes # (Auto) 0.9 L 1.0-4.0 10^3/uL Monocytes # (Auto) 0.8 0.0-1.0 10^3/uL Eosinophils # (Auto) 0.1 0.0-0.3 10^3/uL Basophils # (Auto) 0.0 0.0-0.1 10^3/uL Immature Granulocyte # (Auto) 0.1 0.0-0.1 10^3/uL Urine Color YELLOW Urine Clarity CLEAR Urine pH 5.5 5-9 Urine Specific [place] 1.025 H 1.016-1.022 Urine Protein TRACE H NEGATIVE Urine Glucose (UA) NEGATIVE NEGATIVE Urine Ketones NEGATIVE NEGATIVE Urine Nitrite NEGATIVE NEGATIVE Urine Bilirubin NEGATIVE NEGATIVE Urine Urobilinogen 0.2 < = 1.0 MG/DL Urine Leukocyte Esterase NEGATIVE NEGATIVE Urine RBC (Auto) NEGATIVE NEGATIVE Urine RBC 0-2 /HPF Urine WBC 5-10 H /HPF Urine Squamous Epithelial Cells 0-2 /HPF Urine Crystals NONE /LPF Urine Bacteria TRACE /HPF Urine Casts NONE /LPF Urine Mucus NEGATIVE /LPF Urine Culture Indicated YES Blood Gas Puncture Site RR Blood Gas Patient Temperature 98.3 Arterial Blood pH 7.36 L 7.37-7.43 Arterial Blood Partial Pressure CO2 45 35-45 MMHG Arterial Blood Partial Pressure O2 70 L 79-93 MMHG Arterial Blood HCO3 25 23-27 MMOL/L Arterial Blood Total CO2 26.1 21.0-31.0 MMOL/L Arterial Blood Oxygen Saturation 93 L 94-100 % Arterial Blood Base Excess -0.1 -2.5-2.5 MMOL/L Sukumar Test YES-POS Blood Gas Ventilator Setting NO Blood Gas Inspired Oxygen 4L Influenza Type A (RT-PCR) Not Detected Not Detecte Influenza Type B (RT-PCR) Not Detected Not Detecte SARS-CoV-2 RNA (RT-PCR) Not Detected Not Detecte My Orders Orders - CONRAD THAO Cbc With Automated Diff (11/30/20 09:20) Comprehensive Metabolic Panel (11/30/20 09:20) Hs C Reactive Protein (11/30/20 09:20) Chest 1 View, Ap/Pa Only (11/30/20 09:20) Ct Head/Cervical Spine Wo (11/30/20 09:20) Ua Culture If Indicated (11/30/20 09:20) Arterial Blood Gas (11/30/20 09:34) Arterial Blood Draw (11/30/20 ) Urine Culture (11/30/20 09:22) Covid 19 Inhouse Test (11/30/20 10:14) Influenza A And B By Pcr (11/30/20 10:14) Ceftriaxone (Rocephin) (11/30/20 10:45) Ed Iv/Invasive Line Start (11/30/20 10:37) Ns Iv 500 Ml (Sodium Chloride 0.9%) (11/30/20 10:45) Ns Iv 1000 Ml (Sodium Chloride 0.9%) (11/30/20 10:45) Cefepime 1 Gm Iv (1x Dose) (11/30/20 11:45) Medications Given in ED Current Medications Medications Dose Ordered Sig/Isacc Route Start Time Stop Time Status Last Admin Dose Admin Ceftriaxone Sodium 1000 mg/ Sterile Water 10 ml @ 200 mls/hr ONCE ONCE IV 11/30/20 10:45 11/30/20 10:47 DC 11/30/20 10:53 200 MLS/HR Sodium Chloride 500 ml @ 0 mls/hr Q0M ONCE IV 11/30/20 10:45 11/30/20 10:46 DC 11/30/20 10:53 500 MLS/HR Vital Signs/I&O 11/30/20 09:11 Temp 36.8 Pulse 80 Resp 15 B/P (MAP) 119/55 (76) Pulse Ox 94 O2 Delivery Nasal Cannula O2 Flow Rate 4.00 Blood Pressure Mean: 76 Progress Progress Note : Time: 11:29 Progress Note ASeptic Vitals. The patient was on Rocephin and azithromycin and sent home on cephalexin azithromycin. We will give him cefepime which would be better coverage for his UTI. Since beds are incredibly tight locally we have discussed with him and his son-in-law about going to [place] and they are in agreement. Patient will need some inpatient antibiotics and then social work coordinator to consult for placement. The son-in-law is already working on [facility] and has an appointment tomorrow so he would prefer to start there for jail placement. The C1 fracture appears to be chronic and stable and the patient is not having any neurologic symptoms. We did discuss with the son-in-law the possibility of referral to a neurosurgeon after words but we also discussed the poor prognosis and likelihood that the patient is not a good surgical candidate which the son-in-law agrees. Diagnostic Imaging Diagonstic Imaging: Xray Plain Films/CT/US/NM/MRI: chest Comments NAME: GRAY MCGILL [facility] REC#: [id number] PT STATUS: REG ER : 1930 PHYSICIAN: CONRAD THAO MD ADMIT DATE: 11/30/20/ER Draft Date of Exam:11/30/20 CHEST 1 VIEW, AP/PA ONLY INDICATION: Shortness of breath and fall. TECHNIQUE/COMPARISON: A frontal chest was obtained at 10:15 AM and compared to 11/26/2020. FINDINGS: There is mild cardiomegaly with post sternotomy change. The pacemaker is unchanged. There is central vascular congestion. There is no change in the right basilar infiltrate. There is no pneumothorax or pleural fluid. IMPRESSION: Cardiomegaly and post sternotomy change. Mild central vascular prominence. Unchanged infiltrate in the right base. Dictated on workstation # [id number] Dict: 11/30/20 1029 Trans: 11/30/20 1033 [id number] Interpreted by: ANA TRAMMELL MD Electronically signed by: Reviewed: Reviewed by Me Diagonstic Imaging: CT Plain Films/CT/US/NM/MRI: c-spine, head Comments [facility] [place] NAME: GRAY MCGILL [facility] REC#: [id number] PT STATUS: REG ER : 1930 PHYSICIAN: CONRAD THAO MD ADMIT DATE: 11/30/20/ER Draft Date of Exam:11/30/20 CT HEAD/CERVICAL SPINE WO CLINICAL INDICATION: Patient is status post fall, weakness, and lethargy. Patient states he fell and hit his head and denies any pain. Patient recently released from hospital for pneumonia and weakness. EXAM: Head CT without IV contrast with sagittal and coronal reformations. Axial CT scan of the cervical spine with sagittal and coronal reformations. Auto Exposure Controls were utilized during the CT exam to meet ALARA standards for radiation dose reduction. COMPARISON: None. FINDINGS: HEAD CT: There is no evidence of acute intracranial hemorrhage, brain herniation, or midline shift. There is diffuse brain parenchymal volume loss. There is no brain herniation or midline shift. There is no hydrocephalus. There is no intracranial hemorrhage. Basal cisterns are unremarkable. There is minimal soft tissue swelling involving the left side of the head. The orbits and globes are unremarkable. There is no skull fracture. There are wall up right mastoidectomy changes with wall down left mastoidectomy changes. Paranasal sinuses are clear. CERVICAL SPINE: There is a fracture involving the right C1 vertebral body lamina with corticated margins which appears chronic. There is no other fracture seen. There is grade 1 anterolisthesis of C3 on C4, C4 on C5, and C7 on T1. There is moderate loss of disk space height at the C4-C5 level and severe loss of disk space height at the C5-C6, C6-C7, C7-T1, and T1 on T2 levels. There is severe bilateral C5-C6 and C6-C7 neuroforaminal narrowing. There is severe left C3-C4 neuroforaminal narrowing. There is moderate to severe multilevel neuroforaminal narrowing involving the lower cervical and upper thoracic spine. There is no significant neck soft tissue abnormality. The visualized upper lung camp are clear. IMPRESSION: 1: There is no evidence of intracranial hemorrhage. There is no skull fracture. 2: There is a nondisplaced fracture involving the right-side of the C1 vertebral body lamina. The margins are corticated and this is suspected to represent a chronic fracture. There is no other concern for fracture seen. 3: There is no evidence of acute cervical spine fracture. 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 Dictated on workstation # [id number] Dict: 11/30/20 0956 Trans: 11/30/20 1013 [id number] Interpreted by: MICHAEL LOYOLA MD Electronically signed by: Reviewed: Reviewed by Me Departure Impression Primary Impression: UTI (urinary tract infection) Qualified Codes: N30.00 - Acute cystitis without hematuria Additional Impressions: Delirium due to another medical condition Physical debility Disposition: 02 XFER SHT-TRM HOSP Condition: Stable Transfer Transfer Reason: Exceeds level of care (No [facility] beds available at this time) Time Spoke to Accepting Phy: 11:33 Transfer Progress Notes Discussed the case with Dr. Sandra and she agrees to accept the patient for his low acuity for cefepime treatment and social work coordinator consult for placement. Transfer Facility: [facility] Method of Transfer: EMS Departure-Patient Inst. Referrals: NO,LOCAL PHYSICIAN (PCP/Family) Primary Care Physician CONRAD THAO Nov 30, 2020 09:57
--- NOTE | 2020-11-30 10:13 | Diagnostic Imaging Report ---
CLINICAL INDICATION: Patient is status post fall, weakness, and lethargy. Patient states he fell and hit his head and denies any pain. Patient recently released from hospital for pneumonia and weakness. EXAM: Head CT without IV contrast with sagittal and coronal reformations. Axial CT scan of the cervical spine with sagittal and coronal reformations. Auto Exposure Controls were utilized during the CT exam to meet ALARA standards for radiation dose reduction. COMPARISON: None. FINDINGS: HEAD CT: There is no evidence of acute intracranial hemorrhage, brain herniation, or midline shift. There is diffuse brain parenchymal volume loss. There is no brain herniation or midline shift. There is no hydrocephalus. There is no intracranial hemorrhage. Basal cisterns are unremarkable. There is minimal soft tissue swelling involving the left side of the head. The orbits and globes are unremarkable. There is no skull fracture. There are wall up right mastoidectomy changes with wall down left mastoidectomy changes. Paranasal sinuses are clear. CERVICAL SPINE: There is a fracture involving the right C1 vertebral body lamina with corticated margins which appears chronic. There is no other fracture seen. There is grade 1 anterolisthesis of C3 on C4, C4 on C5, and C7 on T1. There is moderate loss of disk space height at the C4-C5 level and severe loss of disk space height at the C5-C6, C6-C7, C7-T1, and T1 on T2 levels. There is severe bilateral C5-C6 and C6-C7 neuroforaminal narrowing. There is severe left C3-C4 neuroforaminal narrowing. There is moderate to severe multilevel neuroforaminal narrowing involving the lower cervical and upper thoracic spine. There is no significant neck soft tissue abnormality. The visualized upper lung camp are clear. IMPRESSION: 1: There is no evidence of intracranial hemorrhage. There is no skull fracture. 2: There is a nondisplaced fracture involving the right-side of the C1 vertebral body lamina. The margins are corticated and this is suspected to represent a chronic fracture. There is no other concern for fracture seen. 3: There is no evidence of acute cervical spine fracture. 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 Dictated by: Dictated on workstation # [id number]
--- NOTE | 2020-11-30 10:34 | Diagnostic Imaging Report ---
INDICATION: Shortness of breath and fall. TECHNIQUE/COMPARISON: A frontal chest was obtained at 10:15 AM and compared to 11/26/2020. FINDINGS: There is mild cardiomegaly with post sternotomy change. The pacemaker is unchanged. There is central vascular congestion. There is no change in the right basilar infiltrate. There is no pneumothorax or pleural fluid. IMPRESSION: Cardiomegaly and post sternotomy change. Mild central vascular prominence. Unchanged infiltrate in the right base. Dictated by: Dictated on workstation # [id number]
[2020-11-30] MEDS ORDERED: NS IV 500 ML 500 ML IV ONE (10:45)
[2020-11-30] MEDS ORDERED: NS IV 1000 ML 1,000 ML IV SCH (10:45)
[2020-11-30] MEDS ORDERED: cefTRIAXone 1,000 MG in WATER (STERILE) FOR INJECTION 10 ML IV ONE (10:45)
[2020-11-30 11:35] LABS: BILIRUBIN,TOTAL 0.6 MG/DL (0.1-1.0); CALCIUM 10.2 MG/DL (8.5-10.1); CREATININE SERUM 1.37 MG/DL (0.60-1.30); POTASSIUM 4.1 MMOL/L (3.6-5.0); TOTAL PROTEIN 7.4 GM/DL (6.4-8.2)
[2020-11-30] MEDS ORDERED: CEFEPIME INJECTION 1,000 MG in WATER (STERILE) FOR INJECTION 10 ML IV ONE (11:45)
[2020-11-30 12:45] VITALS: BP 129/70
== END 2020-11-30 12:46 | disposition short-term general hospital (02) ==
LOC: ER 09:08 → EDUNIT# 09:18 → ER 12:46
DX: N39.0 Urinary tract infection, site not specified (principal); F05 Delirium due to known physiological condition; R53.81 Other malaise; J43.9 Emphysema, unspecified; I25.10 Atherosclerotic heart disease of native coronary artery without angina pectoris; Z20.822 Contact with and (suspected) exposure to COVID-19; Z79.899 Other long term (current) drug therapy; Z79.82 Long term (current) use of aspirin
CPT/HCPCS: 36415; 36600; 70450; 71045; 72125; 80053; 81000; 82805; 85025; 86141; 87088; 87636

== ENCOUNTER 2021-02-02 18:33 | Inpatient (IN) | payer MEDICARE, MEDICAID ==
[~2021-02-02] VITALS: Ht 185 cm; Wt 102.6 kg
[2021-02-02] MEDS: MAGNESIUM 1 GM/100 ML IVPB 100 ML IV SCH (05:26)
[~2021-02-02 18:33] MED LIST changes: -CLIN150C18 PO; +CLIN150C20 PO
[2021-02-02 18:51] LABS: BILIRUBIN,URINE NEGATIVE (NEGATIVE); CLARITY,URINE CLEAR; COLOR,URINE YELLOW; GLUCOSE, URINE (UA) NEGATIVE (NEGATIVE); KETONES,URINE NEGATIVE (NEGATIVE); LEUKOCYTE ESTERASE ,URINE NEGATIVE (NEGATIVE); NITRITE,URINE NEGATIVE (NEGATIVE); PROTEIN,URINE NEGATIVE (NEGATIVE)
[2021-02-02 19:02] LABS: AMORPHOUS SEDIMENT,UR RARE AMOR URATES /LPF; BACTERIA,URINE NEGATIVE /HPF
[2021-02-02 19:40] LABS: ABG BASE EXCESS 1.3 MMOL/L (-2.5-2.5); ABG OXYGEN SATURATION 97 % (94-100); ABG PCO2 50 MMHG (35-45); ABG PO2 76 MMHG (79-93); ABG TCO2 28.2 MMOL/L (21.0-31.0)
[2021-02-02 19:41] LABS: BASOPHILS % (AUTO) 1 % (0-10); EOSINOPHILS # (AUTO) 0.1 10^3/uL (0.0-0.3); EOSINOPHILS % (AUTO) 3 % (0-10); HEMATOCRIT 38 % (40-54); HEMOGLOBIN 12.2 g/dL (13.3-17.7); LYMPHOCYTES # (AUTO) 0.9 10^3/uL (1.0-4.0); LYMPHOCYTES % (AUTO) 21 % (12-44); MEAN CORPUSCULAR HEMOGLOBIN 31 pg (25-34); MEAN CORPUSCULAR HGB CONC 32 g/dL (32-36); MEAN CORPUSCULAR VOLUME 96 fL (80-99); MEAN PLATELET VOLUME 10.6 fL (9.0-12.2); MONOCYTES # (AUTO) 0.4 10^3/uL (0.0-1.0); MONOCYTES % (AUTO) 9 % (0-12); NEUTROPHILS # (AUTO) 2.8 10^3/uL (1.8-7.8); NEUTROPHILS % (AUTO) 66 % (42-75); PLATELET COUNT 144 10^3/uL (130-400); WHITE BLOOD COUNT 4.3 10^3/uL (4.3-11.0)
[2021-02-02 19:41] LABS: ALLENS TEST POSITIVE; INSPIRED O2 3; PATIENT TEMP 35.8; VENTILATOR NO
[2021-02-02 19:42] LABS: ABG PH 7.34 (7.37-7.43)
[2021-02-02 20:10] LABS: ALBUMIN 4.1 GM/DL (3.2-4.5); BILIRUBIN,TOTAL 0.4 MG/DL (0.1-1.0); CALCIUM 9.3 MG/DL (8.5-10.1); CREATININE SERUM 1.47 MG/DL (0.60-1.30); POTASSIUM 4.3 MMOL/L (3.6-5.0); TOTAL PROTEIN 7.1 GM/DL (6.4-8.2)
--- NOTE | 2021-02-02 20:28 | Diagnostic Imaging Report ---
EXAMINATION: Chest 1 view HISTORY: Pneumonia COMPARISON: 11/30/2020 FINDINGS: Median sternotomy wires are aligned. Left subclavian pacemaker is present. Heart size is enlarged. There is mild edema. No pleural effusion. No pneumothorax. IMPRESSION: 1. Mild edema and enlarged heart. Dictated by: Dictated on workstation # [id number]
[2021-02-02] MEDS ORDERED: RT-ALBUTEROL/IPRATROPIUM 3 ML (DUONEB) VIAL INH ONE (20:30)
--- NOTE | 2021-02-02 20:53 | Diagnostic Imaging Report ---
EXAMINATION: CT head without contrast. TECHNIQUE: Multiple contiguous axial images were obtained through the brain without the use of intravenous contrast. All CT scans use one or more of the following dose optimizing techniques: automated exposure control, MA and/or KvP adjustment based on patient size and exam type or iterative reconstruction. HISTORY: Altered mental status COMPARISON: 11/30/2020 FINDINGS: The sánchez-white matter differentiation is normal. No mass effect or midline shift. The ventricles are normal in size and configuration. Basilar cisterns are patent. There are no intra- or extra-axial fluid collections. There is no intracranial hemorrhage. The orbits are normal. Paranasal sinuses are normal. Mastoid air cells are clear. No soft tissue abnormality is seen. No osseus lesions or fractures are seen. IMPRESSION: 1. No acute intracranial abnormality. Dictated by: Dictated on workstation # [id number]
--- NOTE | 2021-02-02 21:15 | Diagnostic Imaging Report ---
EXAMINATION: CT abdomen and pelvis without contrast. TECHNIQUE: Multiple contiguous axial images were obtained through the abdomen and pelvis without the use of intravenous contrast. All CT scans use one or more of the following dose optimizing techniques: automated exposure control, MA and/or KvP adjustment based on patient size and exam type or iterative reconstruction. HISTORY: Abdominal distention COMPARISON: None available. FINDINGS: Limited views of the lower thorax show consolidation in the lower lobes. The liver is normal without focal lesion. There is no biliary ductal dilation. Gallbladder is normal. Pancreas is normal. Spleen is normal. Adrenal glands are normal. There are simple cysts in the kidneys. No suspicious renal lesions. There is no hydronephrosis. Urinary bladder is normal. There are bilateral fat-containing inguinal hernias. Visualized bowel is normal in caliber without obstruction or inflammation. There is diverticulosis without diverticulitis. No free fluid or air. No abdominal or pelvic lymphadenopathy. There is a 4.1 cm infrarenal abdominal aortic aneurysm. There are no suspicious osseus lesions. There has been instrumented lumbar spine fusion. IMPRESSION: 1. Consolidation in the lower lobes of the lungs concerning for pneumonia. 2. Infrarenal abdominal aortic aneurysm measuring 4.1 cm. Dictated by: Dictated on workstation # [id number]
[2021-02-02] MEDS: ACETAMINOPHEN 500 MG TAB (TYLENOL) PO ONE ×2 (21:44→22:00)
--- NOTE | 2021-02-02 21:50 | ED General ---
General Chief Complaint: Respiratory Problems Stated Complaint: SOMNOLENT Nursing Triage Note: PT ARRIVED PER EMS, PT SENT FROM [facility], PT IS MORE SLEEPY, HAS AUDITORY WHEEZING NOTED, [facility] STATES CONFUSED EARLIER. PT IS ALERT AND ANSWERING QUESTIONS APPROPRIATELY AT THIS X. DENIES PAIN, WEARS O2 @3-4L AT ALL X'S Source of Information: Patient, Caregiver, EMS, [facility] Records, Old Records Exam Limitations: No Limitations History of Present Illness Date Seen by Provider: Feb 02, 2021 Time Seen by Provider: 18:34 Initial Comments This 89-year-old gentleman presents to the emergency room due to [facility] concerns about altered mental status and weakness. He has been sleeping excessively over the last 24 to 48 hours. He normally is ambulatory but could not walk to lunch today. He was taken to lunch in a wheelchair. He fell asleep after eating a little bit. When he awoke he did not know who he was or where he was which is not his typical mental status. He presents to the ER hypersomnolent with stable vital signs and no fever. He has some minor wheezing on arrival but oxygen saturation is stable on 3 L by nasal cannula. He does use nasal cannula oxygen as needed at the [facility]. EMS reported that he was recently started on antibiotics for treatment of pneumonia. Patient does answer his age appropriately. He does not know his location. He does state he sometimes has tremors but does not know what triggers them. He is fairly somn olent but is able to articulate answers to questions in a reasonable manner. Allergies and Home Medications Allergies Coded Allergies: Penicillins (Verified Allergy, Unknown, 02/27/20) Patient Home Medication List Home Medication List Reviewed: Yes Acetaminophen (Tylenol Arthritis) 650 Mg Tablet.er, 1,300 MG PO BID, (Reported) Entered as Reported by: KEMAR PEDRO on 02/28/20 0936 Aspirin (Aspirin EC) 81 Mg Tablet.dr, 81 MG PO DAILY Prescribed by: CRIS FISHER on 11/28/20 1049 Azithromycin (Azithromycin) 250 Mg Tablet, 250 MG PO DAILY Prescribed by: CRIS FISHER on 11/28/20 1049 Cephalexin (Cephalexin) 500 Mg Tablet, 500 MG PO BID Prescribed by: CRIS FISHER on 11/28/20 1049 Cyanocobalamin (Vitamin B-12) (Vitamin B-12) 1,000 Mcg Tablet, 1,000 MCG PO DAILY, (Reported) Entered as Reported by: KEMAR PEDRO on 11/25/20 140 Diphenhydramine HCl (Allergy Relief) 25 Mg Capsule, 25 MG PO DAILY, (Reported) Entered as Reported by: KEMAR PEDRO on 11/25/201405 Docusate Sodium (Stool Softener) 100 Mg Tablet, 100 MG PO BID, (Reported) Entered as Reported by: KEMAR PEDRO on 11/25/20 140 Furosemide (Furosemide) 20 Mg Tablet, 20 MG PO DAILY, (Reported) Entered as Reported by: KEMAR PEDRO on 02/28/20935 Losartan Potassium (Losartan Potassium) 25 Mg Tablet, 25 MG PO DAILY Prescribed by: CRIS FISHER on 11/28/20 104 Memantine HCl (Memantine HCl ER) 7 Mg Cap.spr.24, 7 MG PO DAILY, (Reported) Entered as Reported by: KEMAR PEDRO on 11/25/20 140 Metoprolol Succinate (Metoprolol Succinate) 25 Mg Tab.er.24h, 25 MG PO DAILY Prescribed by: CRIS FISHER on 11/28/20 1049 Omeprazole (Omeprazole) 40 Mg Capsule.dr, 40 MG PO DAILY, (Reported) Entered as Reported by: KEMAR PEDRO on 02/28/20935 Pravastatin Sodium (Pravastatin Sodium) 80 Mg Tablet, 80 MG PO HS, (Reported) Entered as Reported by: KEMAR PEDRO on 02/28/20935 Sertraline HCl (Sertraline HCl) 25 Mg Tablet, 25 MG PO 1900, (Reported) Entered as Reported by: KEMAR PEDRO on 02/28/20935 Review of Systems Review of Systems Constitutional: see HPI, weakness EENTM: no symptoms reported Respiratory: see HPI, wheezing Cardiovascular: no symptoms reported Gastrointestinal: no symptoms reported Genitourinary: no symptoms reported Musculoskeletal: no symptoms reported Skin: no symptoms reported Psychiatric/Neurological: See HPI Hematologic/Lymphatic: No Symptoms Reported Immunological/Allergic: no symptoms reported Past Iybjfnt-Lauhes-Obbrrv Hx Patient Social History Tobacco Use?: No Substance use?: No Alcohol Use?: No Pt feels they are or have been: No Immunizations Up To Date Influenza Vaccine Up-to-Date: Yes; Up-to-Date First/Initial COVID19 Vaccinat: MAR 2020 Second COVID19 Vaccination Reinaldo: APR 2020 Third COVID19 Vaccination Date: MAR 2020 COVID19 Vaccine Appraiser: ANTONIETTA Past Medical History Surgeries: Yes CABG, Orthopedic, Pacemaker Respiratory: Yes (Chronic hypoxia, uses nasal cannula) Emphysema Cardiac: Yes Coronary Artery Disease, Irregular Heartbeat Neurological: Yes Dementia Genitourinary: Yes ("Urinary problems") Renal Failure Gastrointestinal: No Musculoskeletal: No Endocrine: No HEENT: No Cancer: No Psychosocial: No Integumentary: No Family Medical History No Pertinent Family Hx Physical Exam Vital Signs Vital Signs - First Documented 02/02/21 18:35 Temp 35.7 Pulse 67 Resp 20 B/P (MAP) 123/76 (92) O2 Delivery Nasal Cannula O2 Flow Rate 3.00 Capillary Refill : Less Than 3 Seconds Height, Weight, BMI Height: '" Weight: lbs. oz. kg; 31.00 BMI Method: General Appearance: No Apparent Distress, WD/WN HEENT: PERRL/EOMI, Normal ENT Inspection, Pharynx Normal Neck: Normal Inspection Respiratory: No Accessory Muscle Use, No Respiratory Distress; No Crackles; Wheezing Cardiovascular: No Edema, No Murmur, Irregularly Irregular Gastrointestinal: Normal Bowel Sounds, Non Tender, Soft Extremity: Normal Inspection, No Pedal Edema, Other (Michael hose on LE bi laterally) Neurologic/Psychiatric: Alert, No Motor/Sensory Deficits, Normal Mood/Affect, grain blender II-XII Norm as Tested, Other (generalized weakness. Alert to person and age but not date or location.) Skin: Normal Color, Warm/Dry Focused Exam Reason for ruling out sepsis: Patient currently does not meet SIRS criteria Possible Source: Pulmonary Lactate Level 02/02/21 19:25: Lactic Acid Level 0.97 Time of Focused Exam: 23:10 Respiratory: No Crackles; Wheezing Cardiovascular: Regular Rate, Rhythm, No Edema, No Murmur Capillary Refill: Less Than 3 Seconds Peripheral Pulses: 2+ Radial Pulses (L) Skin: normal color, warm/dry Lactic Acid Level Laboratory Tests Test 02/02/21 19:25 Lactic Acid Level 0.97 MMOL/L (0.50-2.00) Within 3hrs of presentation: Admin fluids, Admin ABX, Blood cultures prior to ABX's, Focus exam, Lactate level Progress/Results/Core Measures Suspected Sepsis SIRS Temperature: Pulse: 67 Respiratory Rate: 20 Laboratory Tests 02/02/21 19:38: White Blood Count 4.3 Blood Pressure 123 /76 Mean: 92 02/02/21 19:25: Lactic Acid Level 0.97 Laboratory Tests 02/02/21 19:38: Creatinine 1.47H, Platelet Count 144, Total Bilirubin 0.4 Results/Orders Lab Results Laboratory Tests Test 02/02/21 18:45 02/02/21 19:25 02/02/21 19:36 02/02/21 19:38 Range/Units Urine Color YELLOW Urine Clarity CLEAR Urine pH 6.0 5-9 Urine Specific Leon 1.020 1.016-1.022 Urine Protein NEGATIVE NEGATIVE Urine Glucose (UA) NEGATIVE NEGATIVE Urine Ketones NEGATIVE NEGATIVE Urine Nitrite NEGATIVE NEGATIVE Urine Bilirubin NEGATIVE NEGATIVE Urine Urobilinogen 1.0 < = 1.0 MG/DL Urine Leukocyte Esterase NEGATIVE NEGATIVE Urine RBC (Auto) NEGATIVE NEGATIVE Urine RBC NONE /HPF Urine WBC NONE /HPF Urine Crystals PRESENT H /LPF Urine Amorphous Sediment RARE DIPTI URATES H /LPF Urine Bacteria NEGATIVE /HPF Urine Casts NONE /LPF Urine Mucus NEGATIVE /LPF Urine Culture Indicated NO Lactic Acid Level 0.97 0.50-2.00 MMOL/L Troponin I < 0.028 <0.028 NG/ML Procalcitonin 0.03 <0.10 NG/ML Blood Gas Puncture Site LEFT RADIAL Blood Gas Patient Temperature 35.8 Arterial Blood pH 7.34 *L 7.37-7.43 Arterial Blood Partial Pressure CO2 50 H 35-45 MMHG Arterial Blood Partial Pressure O2 76 L 79-93 MMHG Arterial Blood HCO3 27 23-27 MMOL/L Arterial Blood Total CO2 28.2 21.0-31.0 MMOL/L Arterial Blood Oxygen Saturation 97 94-100 % Arterial Blood Base Excess 1.3 -2.5-2.5 MMOL/L Sukumar Test POSITIVE Blood Gas Ventilator Setting NO Blood Gas Inspired Oxygen 3 White Blood Count 4.3 4.3-11.0 10^3/uL Red Blood Count 3.92 L 4.30-5.52 10^6/uL Hemoglobin 12.2 L 13.3-17.7 g/dL Hematocrit 38 L 40-54 % Mean Corpuscular Volume 96 80-99 fL Mean Corpuscular Hemoglobin 31 25-34 pg Mean Corpuscular Hemoglobin Concent 32 32-36 g/dL Red Cell Distribution Width 13.2 10.0-14.5 % Platelet Count 144 130-400 10^3/uL Mean Platelet Volume 10.6 9.0-12.2 fL Immature Granulocyte % (Auto) 1 % Neutrophils (%) (Auto) 66 42-75 % Lymphocytes (%) (Auto) 21 12-44 % Monocytes (%) (Auto) 9 0-12 % Eosinophils (%) (Auto) 3 0-10 % Basophils (%) (Auto) 1 0-10 % Neutrophils # (Auto) 2.8 1.8-7.8 10^3/uL Lymphocytes # (Auto) 0.9 L 1.0-4.0 10^3/uL Monocytes # (Auto) 0.4 0.0-1.0 10^3/uL Eosinophils # (Auto) 0.1 0.0-0.3 10^3/uL Basophils # (Auto) 0.0 0.0-0.1 10^3/uL Immature Granulocyte # (Auto) 0.0 0.0-0.1 10^3/uL Sodium Level 141 135-145 MMOL/L Potassium Level 4.3 3.6-5.0 MMOL/L Chloride Level 105 98-107 MMOL/L Carbon Dioxide Level 25 21-32 MMOL/L Anion Gap 11 5-14 MMOL/L Blood Urea Nitrogen 25 H 7-18 MG/DL Creatinine 1.47 H 0.60-1.30 MG/DL Estimat Glomerular Filtration Rate 45 BUN/Creatinine Ratio 17 Glucose Level 106 H 70-105 MG/DL Calcium Level 9.3 8.5-10.1 MG/DL Corrected Calcium 9.2 8.5-10.1 MG/DL Total Bilirubin 0.4 0.1-1.0 MG/DL Aspartate Amino Transf (AST/SGOT) 12 5-34 U/L Alanine Aminotransferase (ALT/SGPT) 10 0-55 U/L Alkaline Phosphatase 61 40-136 U/L C-Reactive Protein High Sensitivity 0.72 H 0.00-0.50 MG/DL Total Protein 7.1 6.4-8.2 GM/DL Albumin 4.1 3.2-4.5 GM/DL Influenza Type A (RT-PCR) Not Detected Not Detecte Influenza Type B (RT-PCR) Not Detected Not Detecte SARS-CoV-2 RNA (RT-PCR) Not Detected Not Detecte My Orders Orders - DEIDRE THOMPSON MD Cbc With Automated Diff (02/02/21 18:41) Comprehensive Metabolic Panel (02/02/21 18:41) Hs C Reactive Protein (02/02/21 18:41) Ua Culture If Indicated (02/02/21 18:41) Ed Iv/Invasive Line Start (02/02/21 18:41) Influenza A And B By Pcr (02/02/21 18:41) Covid 19 Inhouse Test (02/02/21 18:41) Chest 1 View, Ap/Pa Only (02/02/21 18:43) Arterial Blood Gas (02/02/21 19:33) Ct Abdomen/Pelvis Wo (02/02/21 20:20) Ct Head Wo (02/02/21 20:20) Troponin I (02/02/21 20:20) Ekg Tracing (02/02/21 20:20) Albuterol/Ipra Inhalation Soln (Duoneb I (02/02/21 20:30) Svn Small Volume Nebulizer (02/02/21 20:21) Blood Culture (02/02/21 20:32) Sputum Culture (02/02/21 20:32) Urine Culture (02/02/21 20:32) Vital Signs Adult Sepsis Patie Q15M (02/02/21 20:32) O2 (02/02/21 20:32) Remove Rings In Anticipation O (02/02/21 20:32) Lactic Acid Analyzer (02/02/21 20:32) Acetaminophen Tablet (Tylenol Tablet) (02/02/21 21:45) Medications Given in ED Current Medications Medications Dose Ordered Sig/Isacc Route Start Time Stop Time Status Last Admin Dose Admin Acetaminophen 1,000 mg ONCE ONCE PO 02/02/21 21:45 02/02/21 21:46 DC 02/02/21 22:00 1,000 MG Albuterol/ Ipratropium 3 ml ONCE ONCE INH 02/02/21 20:30 02/02/21 20:31 DC 02/02/21 22:01 3 ML Vital Signs/I&O 02/02/21 02/02/21 02/02/21 18:35 18:35 19:00 Temp 35.7 Pulse 67 Resp 20 B/P (MAP) 123/76 (92) O2 Delivery Nasal Cannula Nasal Cannula O2 Flow Rate 3.00 3.00 Capillary Refill : Less Than 3 Seconds Blood Pressure Mean: 92 Progress Note #1: Time: 22:11 Progress Note Initial work-up revealed no etiology for his symptoms. Further evaluation with CT of the head and CT of the abdomen (due to abdominal distention and firmness) was pursued. CT of the abdomen revealed infiltrate in the lower lung suspicious for pneumonia. Although EMS had reported patient was recently treated for pneumonia, I found no evidence of antibiotic administration in the filling record or in [facility] papers. [facility] staff also was not aware of any treatment for pneumonia. Given no other explanation for his symptoms, this is a likely cause. Patient was initially treated with cefepime in the ER after discussion with Dr. Sandra. She also requested vancomycin be added and it was added to the bridging orders. Although patient was initially hypersomnolent and responding to questions appropriately, he became agitated later and started hallucinating. He was given Ativan 0.25 mg in the ER. Per Dr. Sandra's request, Geodon 10 mg IM every 2 hours as needed and Ativan were ordered for treatment of agitation and psychosis in the ICU. Patient has a DNR order in his [facility] papers and this will be continued in the hospital. Oxygen sat urations remained in the 89 to 97% range on 3 L by nasal cannula. Patient did receive a DuoNeb treatment for wheezing. Patient had tremors which may be a prodrome to fever. halfway staff reported he normally does not have tremors. Tylenol was administered. Blood cultures and lactic acid were obtained prior to antibiotic administration. Progress Note #2: Time: 23:14 Progress Note Patient is awaiting transport up to his ICU bed. He has been sitting in a chair. He received Ativan 0.25 mg IV for agitation. While awaiting transport he developed hypotension. It is unclear if this was secondary to the Ativan. He still remains alert and talkative. He was transferred to the bed and but still had a hypotensive measurement after transfer to the bed. A liter of IV LR is being administered. Patient had also received antibiotics prior to this episode. I am doubtful that this is severe sepsis or septic shock related as his lab work would not support severe sepsis nor would his other vital signs. I have given report to Dr. Wheeler with eICU and recommended monitoring him closely upon arrival. ECG Initial ECG Impression Date: Feb 02, 2021 Initial ECG Impression Time: 20:33 Initial ECG Rate: 106 Comment Ventricular paced complexes with no overt ischemic changes. LVH by automated read. Similar to prior. Diagnostic Imaging Diagonstic Imaging: Xray Plain Films/CT/US/NM/MRI: chest Comments NAME: [facility] REC#: [id number] PT STATUS: REG ER : 1930 PHYSICIAN: DEIDRE THOMPSON MD ADMIT DATE: 02/02/21/ER Signed Date of Exam:02/02/21 CHEST 1 VIEW, AP/PA ONLY EXAMINATION: Chest 1 view HISTORY: Pneumonia COMPARISON: 11/30/2020 FINDINGS: Median sternotomy wires are aligned. Left subclavian pacemaker is present. Heart size is enlarged. There is mild edema. No pleural effusion. No pneumothorax. IMPRESSION: 1. Mild edema and enlarged heart. Dictated by: Dictated on workstation # [id number] Dict: 02/02/212020 Trans: 02/02/212056 [facility] [id number] Interpreted by: MARY ANN GAXIOLA MD Electronically signed by: MARY ANN GAXIOLA MD 02/02/212056 Reviewed: Reviewed by Me Diagonstic Imaging: CT Plain Films/CT/US/NM/MRI: abdomen, pelvis Comments NAME: [facility] REC#: [id number] PT STATUS: REG ER : 1930 PHYSICIAN: DEIDRE THOMPSON MD ADMIT DATE: 02/02/21/ER Signed Date of Exam:02/02/21 CT ABDOMEN/PELVIS WO EXAMINATION: CT abdomen and pelvis without contrast. TECHNIQUE: Multiple contiguous axial images were obtained through the abdomen and pelvis without the use of intravenous contrast. All CT scans use one or more of the following dose optimizing techniques: automated exposure control, MA and/or KvP adjustment based on patient size and exam type or iterative reconstruction. HISTORY: Abdominal distention COMPARISON: None available. FINDINGS: Limited views of the lower thorax show consolidation in the lower lobes. The liver is normal without focal lesion. There is no biliary ductal dilation. Gallbladder is normal. Pancreas is normal. Spleen is normal. Adrenal glands are normal. There are simple cysts in the kidneys. No suspicious renal lesions. There is no hydronephrosis. Urinary bladder is normal. There are bilateral fat-containing inguinal hernias. Visualized bowel is normal in caliber without obstruction or inflammation. There is diverticulosis without diverticulitis. No free fluid or air. No abdominal or pelvic lymphadenopathy. There is a 4.1 cm infrarenal abdominal aortic aneurysm. There are no suspicious osseus lesions. There has been instrumented lumbar spine fusion. IMPRESSION: 1. Consolidation in the lower lobes of the lungs concerning for pneumonia. 2. Infrarenal abdominal aortic aneurysm measuring 4.1 cm. Dictated by: Dictated on workstation # [id number] Dict: 02/02/212107 Trans: 02/02/212153 [facility] [id number] Reviewed: Reviewed by De Diagonstic Imaging: CT Plain Films/CT/US/NM/MRI: head Comments NAME: [facility] REC#: [id number] PT STATUS: REG ER : 1930 PHYSICIAN: DEIDRE THOMPSON MD ADMIT DATE: 02/02/21/ER Signed Date of Exam:02/02/21 CT HEAD WO EXAMINATION: CT head without contrast. TECHNIQUE: Multiple contiguous axial images were obtained through the brain without the use of intravenous contrast. All CT scans use one or more of the following dose optimizing techniques: automated exposure control, MA and/or KvP adjustment based on patient size and exam type or iterative reconstruction. HISTORY: Altered mental status COMPARISON: 11/30/2020 FINDINGS: The sánchez-white matter differentiation is normal. No mass effect or midline shift. The ventricles are normal in size and configuration. Basilar cisterns are patent. There are no intra- or extra-axial fluid collections. There is no intracranial hemorrhage. The orbits are normal. Paranasal sinuses are normal. Mastoid air cells are clear. No soft tissue abnormality is seen. No osseus lesions or fractures are seen. IMPRESSION: 1. No acute intracranial abnormality. Dictated by: Dictated on workstation # [id number] Dict: 02/02/212049 Trans: 02/02/212056 [facility] [id number] Interpreted by: MARY ANN GAXIOLA MD Electronically signed by: MARY ANN GAXIOLA MD 02/02/212056 Departure Communication (Admissions) Time/Spoke to Admitting Phy: 21:48 Dr. Sandra Impression Primary Impression: Pneumonia Qualified Codes: J18.9 - Pneumonia, unspecified organism Additional Impressions: Weakness Altered mental status Qualified Codes: R41.82 - Altered mental status, unspecified Agitation Hypotension Qualified Codes: I95.9 - Hypotension, unspecified Disposition: 09 ADMITTED INPATIENT Condition: Stable Admissions Decision to Admit Reason: Admit from ER (General) Decision to Admit/Date: Feb 02, 2021 Time/Decision to Admit Time: 21:30 Departure-Patient Inst. Referrals: CARLTON COBURN MD (PCP/Family) Primary Care Physician DEIDRE THOMPSON MD Feb 02, 2021 21:49
[2021-02-02] MEDS ORDERED: CEFEPIME INJECTION 1,000 MG in WATER (STERILE) FOR INJECTION 10 ML IV ONE ×2 (22:00→22:15)
[2021-02-02] MEDS ORDERED: LORazepam INJ 2 MG/ML (ATIVAN) VIAL IVP ONE (22:00)
[2021-02-02] MEDS ORDERED: LACTATED RINGERS 1,000 ML IV ONE ×2 (23:11→23:15)
[2021-02-02] MEDS ORDERED: LORazepam INJ 2 MG/ML (ATIVAN) VIAL IVP PRN (23:45)
[2021-02-02] MEDS ORDERED: ONDANSETRON 4 MG/2 ML (SDV) Z0FRAN IVP PRN (23:45)
[2021-02-02] MEDS ORDERED: ACETAMINOPHEN 500 MG TAB (TYLENOL) PO PRN (23:45)
[2021-02-02] MEDS ORDERED: ACETAMINOPHEN 650 MG SUPP (TYLENOL) PR PRN (23:45)
[2021-02-03 00:16] VITALS: BP 102/46
[2021-02-03] MEDS ORDERED: RT-ALBUTEROL/IPRATROPIUM 3 ML (DUONEB) VIAL INH PRN (00:30)
[2021-02-03] MEDS: VANCOMYCIN 1 GM/NS 250 ML IVPB IV SCH ×4 (00:31→02:05)
--- NOTE | 2021-02-03 00:49 | Tele-ICU Progress Note ---
Progress Note 89M with history of CAD, CHB s/p PPM, HTN, HLD, on home O2 (unclear why) transferred from [place] for AMS and weakness. EMS reported recent pneumonia, which ER MD was unable to verify from [facility] and inpatient records. No recent abx on JUN. Unclear source of report, but possibly referring to pneumonia admissionat this hospital 11/25/20. Per report, has been sleeping excessively the past 24-48 hrs. He was unable to walk to lunch, after being wheeled down he fell asleep at the table. He was arousable but disoriented. All of which are unusual for this patient. Also noted to be tremulous, which [facility] says is not baseline. However, H&P from Nov PNA admit reports his chief complaint was the shakes. In ED, ABD/Pel CT done due to firm distension - incidental finding of lower pulmonary infiltrates. cefepime, azithro, vanco ordered. - pneumonia: incidental finding, but presentation similar to november. Abx initiated as above. Cultures drawn in ER. - delirium: secondary to sepsis. May be worsened with benzos. PRN geodon ordered. If fails to control, will use antipyschotics vs precedex. Focused Exam Lactate Level 02/02/21 19:25: Lactic Acid Level 0.97 Height, Weight, BMI Height: '" Weight: lbs. oz. kg; 31.55 BMI Method: Time of Focused Exam: 23:10 SCOTT OLMEDO MD Feb 03, 2021 00:49
[2021-02-03] MEDS: AZITHROMYCIN INJECTION 500 MG in NS (IVPB) 250 ML IV SCH (01:03)
[2021-02-03] MEDS: RT-ALBUTEROL/IPRATROPIUM 3 ML (DUONEB) VIAL INH SCH ×4 (02:42→21:47)
[2021-02-03 04:49] LABS: BASOPHILS % (AUTO) 0 % (0-10)
[2021-02-03 04:51] LABS: EOSINOPHILS % (AUTO) 0 % (0-10); HEMATOCRIT 34 % (40-54); LYMPHOCYTES % (AUTO) 10 % (12-44); MEAN CORPUSCULAR HEMOGLOBIN 31 pg (25-34); MEAN CORPUSCULAR HGB CONC 32 g/dL (32-36); MEAN CORPUSCULAR VOLUME 96 fL (80-99); MEAN PLATELET VOLUME 10.7 fL (9.0-12.2); MONOCYTES # (AUTO) 0.7 10^3/uL (0.0-1.0); MONOCYTES % (AUTO) 7 % (0-12); NEUTROPHILS # (AUTO) 8.6 10^3/uL (1.8-7.8); NEUTROPHILS % (AUTO) 82 % (42-75); PLATELET COUNT 134 10^3/uL (130-400); WHITE BLOOD COUNT 10.4 10^3/uL (4.3-11.0)
[2021-02-03 05:21] LABS: ALANINE AMINOTRANSFERASE < 6 U/L (0-55); ALBUMIN 3.7 GM/DL (3.2-4.5); ALKALINE PHOSPHATASE 52 U/L (40-136); BILIRUBIN,TOTAL 0.7 MG/DL (0.1-1.0); BUN/CREATININE RATIO 18; CALCIUM 8.7 MG/DL (8.5-10.1); CARBON DIOXIDE 24 MMOL/L (21-32); CHLORIDE 107 MMOL/L (98-107); GFR ESTIMATED 44; GLUCOSE 108 MG/DL (70-105); MAGNESIUM 1.9 MG/DL (1.6-2.4); PHOSPHORUS 2.8 MG/DL (2.3-4.7); POTASSIUM 4.4 MMOL/L (3.6-5.0); SODIUM 140 MMOL/L (135-145); TOTAL PROTEIN 6.1 GM/DL (6.4-8.2)
[2021-02-03] MEDS: POTASSIUM CL 10MEQ/50ML IVPB 50 ML IV SCH (05:26)
[2021-02-03] MEDS: KCL 20 MEQ TAB (K-DUR) PO SCH (05:26)
--- NOTE | 2021-02-03 09:20 | Tele-ICU Progress Note ---
Subjective Date Seen by a Provider: Feb 03, 2021 Time Seen by a Provider: 09:15 Subjective/Events-last exam 89 yo M admitted with AMS and PNA, CXR shows ? infiltrated RLL adjacent to heart on IV Vancomycin, Cefepime Azithromycin On 3 lpm NC with good SpO2, on home oxygen CT head shows no acute change Initial procalcitonin ok Has pacer for CHB Sepsis Event Evaluation Height, Weight, BMI Height: '" Weight: lbs. oz. kg; 31.55 BMI Method: Focused Exam Lactate Level 02/02/21 19:25: Lactic Acid Level 0.97 Time of Focused Exam: 23:10 Exam Exam Patient acknowledged, consented, and participated in this virtual visit which was conducted using real time audio/video Vital Signs Date Time Temp Pulse Resp B/P (MAP) Pulse Ox O2 Delivery O2 Flow Rate FiO2 02/03/21 09:00 73 20 120/67 96 Nasal Cannula 3.00 02/03/21 08:00 80 20 102/49 Nasal Cannula 3.00 02/03/21 07:03 61 02/03/21 07:00 61 14 109/54 Nasal Cannula 3.00 02/03/21 06:00 79 19 94/55 95 Nasal Cannula 3.00 02/03/21 05:06 Nasal Cannula 3.00 02/03/21 05:00 70 20 108/62 Nasal Cannula 3.00 02/03/21 04:00 77 19 100/59 96 Nasal Cannula 3.00 02/03/21 03:12 37.1 02/03/21 03:00 77 11 92/61 94 Nasal Cannula 3.00 02/03/21 02:42 95 Nasal Cannula 3.00 02/03/21 02:00 76 20 95/55 94 Nasal Cannula 3.00 02/03/21 01:30 72 18 91/55 93 Nasal Cannula 3.00 02/03/21 01:15 78 17 96/52 92 Nasal Cannula 3.00 02/03/21 01:00 78 14 100/45 Nasal Cannula 3.00 02/03/21 01:00 78 02/03/21 00:45 79 23 99/47 93 Nasal Cannula 3.00 02/03/21 00:30 75 13 93/45 Nasal Cannula 3.00 02/03/21 00:16 35.7 80 94 28 02/03/21 00:15 70 32 101/55 95 Nasal Cannula 3.00 02/03/21 00:06 Nasal Cannula 3.00 02/03/21 00:00 80 22 106/48 96 Nasal Cannula 3.00 02/02/21 23:47 38.2 24 102/46 94 Nasal Cannula 3.00 02/02/21 23:35 80 02/02/21 23:19 79 14 123/76 98 Nasal Cannula 02/02/21 19:00 Nasal Cannula 3.00 02/02/21 18:35 35.7 67 20 123/76 (92) 02/02/21 18:35 Nasal Cannula 3.00 I & O 02/03/21 07:00 Intake Total 540 ml Output Total 300 ml Balance 240 ml Height & Weight Height: '" Weight: lbs. oz. kg; 31.55 BMI Method: General Appearance: No Apparent Distress, WD/WN HEENT: PERRL/EOMI, Normal ENT Inspection, Pharynx Normal Neck: Normal Inspection Respiratory: No Crackles; Wheezing, Other (upper airway sounds heart) Cardiovascular: Regular Rate, Rhythm, No Edema, No Murmur Capillary Refill: Less Than 3 Seconds Peripheral Pulses: 2+ Radial Pulses (L) Gastrointestinal: normal bowel sounds, non tender, other (appetite poor, meals held) Extremity: Normal Inspection, No Pedal Edema, Other (Michael hose on LE bilaterally) Neurologic/Psychiatric: Alert, No Motor/Sensory Deficits, Normal Mood/Affect, bender helper II-XII Norm as Tested, Disoriented, Other (generalized weakness. Alert to person and age but not date or location.) Skin: Normal Color, Warm/Dry Results Lab Laboratory Tests 02/02/21 19:38 02/03/21 04:39 Assessment/Plan Assessment/Plan PNA? continue abx for now AMS, if does not improve, will get repeat CT, suspect AMS is due to sepsis Critical Care: Critically Ill Patient Time spent with patient (mins): 25 GUADALUPE BILLINGS MD Feb 03, 2021 09:20
[2021-02-03] MEDS: CEFEPIME INJECTION 2,000 MG in WATER (STERILE) FOR INJECTION 20 ML IV SCH ×2 (09:43→21:01)
[2021-02-03] MEDS ORDERED: MTP25TSR PO (10:35)
[2021-02-03] MEDS ORDERED: ALBU2.5V4 NEB (10:35)
[2021-02-03] MEDS ORDERED: TMSL.4C PO (10:35)
[2021-02-03] MEDS ORDERED: BETHANECHOL PO (10:35)
[2021-02-03] MEDS ORDERED: MEMA21CA8 PO (10:35)
[2021-02-03] MEDS ORDERED: CALC500T7 PO (10:35)
[2021-02-03] MEDS ORDERED: [UNRECOGNIZED DRUG - CODE] OU (10:35)
[2021-02-03] MEDS ORDERED: ASPI-1238 PO (10:35)
[2021-02-03] MEDS ORDERED: ACET325T38 PO (10:35)
[2021-02-03] MEDS ORDERED: LORA10TA7 PO (10:35)
[2021-02-03] MEDS ORDERED: MENT70.8 TP (10:35)
[2021-02-03] MEDS ORDERED: DOCU100C37 PO (10:35)
[2021-02-03 10:37] LABS: ABG BASE EXCESS 1.5 MMOL/L (-2.5-2.5); ABG OXYGEN SATURATION 97 % (94-100); ABG PCO2 44 MMHG (35-45); ABG PH 7.39 (7.37-7.43); ABG PO2 77 MMHG (79-93); ABG TCO2 27.3 MMOL/L (21.0-31.0)
[2021-02-03 10:38] LABS: ALLENS TEST POSITIVE; INSPIRED O2 3 L; PATIENT TEMP 36.8; VENTILATOR NO
--- NOTE | 2021-02-03 10:38 | Consultation-Cardiology ---
HPI-Cardiology Cardiology Consultation Date of Consultation 02/03/21 Date of Admission Time Seen by Provider: 09:15 Indication: HX CAD, CHF HPI Patient is an 89 y/o male with history of CAD, CHD, CHB s/p PPM, presented to the ER yesterday from [place] with c/o increased sleepiness and confusion. W/u in ER showing pneumonia with questionable sepsis. Upon interviewing the patient he re jermain pleasantly confused. Noted to be hypotensive with SBP 108. Denies any chest pain. Home Medications & Allergies Allergies: Coded Allergies: Penicillins (Verified Allergy, Unknown, 02/27/20) Home Medication List Reviewed: Yes CIT-Lcytsz-Vdjkon Hx Patient Social History Employed/Student: retired Type Used: Cigarettes Recent Hopitalizations: No Have you traveled recently?: No Alcohol Use?: No Past Medical History CAD, CHF, CHB s/p PPM Family Medical History Significant Family History: No Pertinent Family Hx Review of Systems-General Review of Systems ROS-Unable to Obtain: patient with AMS, unable to obtain full ROS Constitutional: see HPI, weakness EENTM: see HPI, no symptoms reported Respiratory: see HPI, wheezing Cardiovascular: see HPI Gastrointestinal: no symptoms reported Genitourinary: no symptoms reported Musculoskeletal: no symptoms reported Skin: no symptoms reported Psychiatric/Neurological: See HPI Reviewed Test Results Reviewed Test Results Lab Laboratory Tests 02/02/21 18:45: Urine Color YELLOW, Urine Clarity CLEAR, Urine pH 6.0, Urine Specific [place] 1.020, Urine Protein NEGATIVE, Urine Glucose (UA) NEGATIVE, Urine Ketones NEGATIVE, Urine Nitrite NEGATIVE, Urine Bilirubin NEGATIVE, Urine Urobilinogen 1.0, Urine Leukocyte Esterase NEGATIVE, Urine RBC (Auto) NEGATIVE, Urine RBC NONE, Urine WBC NONE, Urine Crystals PRESENTH, Urine Amorphous Sediment RARE DIPTI URATESH, Urine Bacteria NEGATIVE, Urine Casts NONE, Urine Mucus NEGATIVE, Urine Culture Indicated NO 02/02/21 19:25: Lactic Acid Level 0.97, Troponin I < 0.028, Procalcitonin 0.03 02/02/21 19:36: Blood Gas Puncture Site LEFT RADIAL, Blood Gas Patient Temperature 35.8, Arterial Blood pH 7.34*L, Arterial Blood Partial Pressure CO2 50H, Arterial Blood Partial Pressure O2 76L, Arterial Blood HCO3 27, Arterial Blood Total CO2 28.2, Arterial Blood Oxygen Saturation 97, Arterial Blood Base Excess 1.3, Sukumar Test POSITIVE, Blood Gas Ventilator Setting NO, Blood Gas Inspired Oxygen 3 02/02/21 19:38: White Blood Count 4.3, Red Blood Count 3.92L, Hemoglobin 12.2L, Hematocrit 38L, Mean Corpuscular Volume 96, Mean Corpuscular Hemoglobin 31, Mean Corpuscular Hemoglobin Concent 32, Red Cell Distribution Width 13.2, Platelet Count 144, Mean Platelet Volume 10.6, Immature Granulocyte % (Auto) 1, Neutrophils (%) (Auto) 66, Lymphocytes (%) (Auto) 21, Monocytes (%) (Auto) 9, Eosinophils (%) (Auto) 3, Basophils (%) (Auto) 1, Neutrophils # (Auto) 2.8, Lymphocytes # (Auto) 0.9L, Monocytes # (Auto) 0.4, Eosinophils # (Auto) 0.1, Basophils # (Auto) 0.0, Immature Granulocyte # (Auto) 0.0, Sodium Level 141, Potassium Level 4.3, Chloride Level 105, Carbon Dioxide Level 25, Anion Gap 11, Blood Urea Nitrogen 25H, Creatinine 1.47H, Estimat Glomerular Filtration Rate 45, BUN/Creatinine Ratio 17, Glucose Level 106H, Calcium Level 9.3, Corrected Calcium 9.2, Total B ilirubin 0.4, Aspartate Amino Transf (AST/SGOT) 12, Alanine Aminotransferase (ALT/SGPT) 10, Alkaline Phosphatase 61, C-Reactive Protein High Sensitivity 0.72H, Total Protein 7.1, Albumin 4.1, Influenza Type A (RT-PCR) Not Detected, Influenza Type B (RT-PCR) Not Detected, SARS-CoV-2 RNA (RT-PCR) Not Detected 02/03/21 04:39: White Blood Count 10.4, Red Blood Count 3.56L, Hemoglobin 11.0L, Hematocrit 34L, Mean Corpuscular Volume 96, Mean Corpuscular Hemoglobin 31, Mean Corpuscular Hemoglobin Concent 32, Red Cell Distribution Width 13.2, Platelet Count 134, Mean Platelet Volume 10.7, Immature Granulocyte % (Auto) 1, Neutrophils (%) (Auto) 82H, Lymphocytes (%) (Auto) 10L, Monocytes (%) (Auto) 7, Eosinophils (%) (Auto) 0, Basophils (%) (Auto) 0, Neutrophils # (Auto) 8.6H, Lymphocytes # (Auto) 1.0, Monocytes # (Auto) 0.7, Eosinophils # (Auto) 0.0, Basophils # (Auto) 0.0, Immature Granulocyte # (Auto) 0.1, Percent Immature Platelet Fraction 5.3, Sodium Level 140, Potassium Level 4.4, Chloride Level 107, Carbon Dioxide Level 24, Anion Gap 9, Blood Urea Nitrogen 27H, Creatinine 1.50H, Estimat Glomerular Filtration Rate 44, BUN/Creatinine Ratio 18, Glucose Level 108H, Calcium Level 8.7, Corrected Calcium 8.9, Phosphorus Level 2.8, Magnesium Level 1.9, Total Bilirubin 0.7, Aspartate Amino Transf (AST/SGOT) 10, Alanine Aminotransferase (ALT/SGPT) < 6, Alkaline Phosphatase 52, Total Protein 6.1L, Albumin 3.7 02/03/21 10:30: Blood Gas Puncture Site LEFT RADIAL, Blood Gas Patient Temperature 36.8, Arterial Blood pH 7.39, Arterial Blood Partial Pressure CO2 44, Arterial Blood Partial Pressure O2 77L, Arterial Blood HCO3 26, Arterial Blood Total CO2 27.3, Arterial Blood Oxygen Saturation 97, Arterial Blood Base Excess 1.5, Sukumar Test POSITIVE, Blood Gas Ventilator Setting NO, Blood Gas Inspired Oxygen 3 L ECG Impression ECG Comment paced Physical Exam Physical Exam Vital Signs Vital Signs - First Documented 02/02/21 02/02/21 02/03/21 18:35 23:19 00:16 Temp 35.7 Pulse 67 Resp 20 B/P (MAP) 123/76 (92) Pulse Ox 98 O2 Delivery Nasal Cannula O2 Flow Rate 3.00 FiO2 28 Capillary Refill : Less Than 3 Seconds Height, Weight, BMI Height: '" Weight: lbs. oz. kg; 31.55 BMI Method: General Appearance: WD/WN, Mild Distress HEENT: PERRL/EOMI, Normal ENT Inspection, Pharynx Normal Neck: Normal Inspection Respiratory: No Crackles; Rhonci, Wheezing Cardiovascular: Regular Rate, Rhythm, No Edema, No Murmur Gastrointestinal: Normal Bowel Sounds, Non Tender, Soft Extremity: Normal Inspection, No Pedal Edema Neurologic/Psychiatric: Alert, No Motor/Sensory Deficits, Normal Mood/Affect, hand trimmer II-XII Norm as Tested, Disoriented, Other (generalized weakness. Alert to person and age but not date or location.) Skin: Normal Color, Warm/Dry A/P-Cardiology Admission Diagnosis Pneumonia AMS CAD CHF Assessment/Plan Pneumonia, on antibiotics, currently receiveing IVF, management per medical services AMS, possibly secondary to sepsis, currently receiving IVFs, mangagement per med ica services Coronary artery disease, s/p CABG in the past. Will continue with conservative management. 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 Had been maintained on Toprol XL, losartan and Lasix as outpatient, currently on hold d/t hypotension. 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 Interrogation done January 2021 showing good sensing and capture activity,continue to monitor Hypertension, currently hypotensive Hyperlipidemia, continue to monitor as outpatient Renal insufficiency, continue to monitor renal function. Dementia Thank you for allowing us to participate in the management of Mr. Freire, this is Deanna Manuel PA-C, as a scribe for Dr. Muhammad. Patient was seen and evaluated with Deanna, I examined and interviewed the patient Agree with the current scribed note Complaint of generalized fatigue and shortness of breath Has acute change in mental status due to sepsis and pneumonia Receiving antibiotics and managed by primary care team Regarding his underlying coronary artery disease, cardiac enzymes has been n egative Continue to monitor blood pressure EKG showed paced rhythm. Has underlying complete heart block and will chamber pacemaker. Continue to monitor CBC DEANNA GAONA Feb 03, 2021 10:38 SLADE MUHAMMAD MD Feb 03, 2021 16:15
[2021-02-03] MEDS ORDERED: LORazepam INJ 2 MG/ML (ATIVAN) VIAL ONE (10:51)
[2021-02-03] MEDS: LACTATED RINGERS 1,000 ML IV SCH (13:15)
--- NOTE | 2021-02-03 14:13 | History & Physical-Hospitalist ---
SHANTANU LÓPEZ MED STUDENT 02/03/21 1413: History of Present Illness HPI/Chief Complaint CC: AMS, SOB, somnolence, weakness HPI: Enrique is an 89yo male admitted to the ICU from the ED due to concerns from his assisted regarding AMS, weakness, and dyspnea. He is somnolent, disoriented, and a poor historian. Per ED, he has been sleeping excessively over the past couple of days, experienced an acute loss of ability to walk, and had AMS with disorientation to self/place. Significant history of CAD, HTN, HLD, complete heart block w/ pacemaker, COPD with need for constant O2, dementia, CABG, and renal failure. On assessment, he is sleeping and arousable to touch. Pleasant affect. Oriented to self, disoriented to place/time. No complaints of pain. Denies chest pain, N/V. Has been experiencing chills and SOB; unclear whether SOB is worse than baseline. He is unable to recall the events of the past couple of days. Exam Limitations: clinical condition (delirium/AMS) Date Seen 02/03/21 Time Seen by a Provider: 09:00 Attending Physician Aspen Sandra DO PCP Abram Judd MD Referring Physician Date of Admission Feb 02, 2021 at 21:50 Home Medications & Allergies Home Medications Reviewed patient Home Medication Reconciliation performed by pharmacy medication reconciliations coal gasification technician and/or nursing. Patients Allergies have been reviewed. Allergies Allergies Coded Allergies Penicillins (Verified Allergy, Unknown, 02/27/20) Past Jwjukhx-Dtfydz-Mivrvy Hx Patient Social History Marrital Status: single Employed/Student: retired Tobacco Use?: No Substance use?: No Alcohol Use?: No Pt feels they are or have been: No Immunizations Up To Date First/Initial COVID19 Vaccinat: APR 2020 Second COVID19 Vaccination Reinaldo: APR 2020 Tetanus Booster (TDap): Unknown Hepatitis A: No Hepatitis B: No Current Status Advance Directives: No Communicates: Verbally Primary Language: Paraguayan Preferred Spoken Language: Paraguayan Is interpretation needed?: No Sensory deficits: Hearing impairment Implanted or Applied Medical D: Pacemaker Past Medical History Surgeries: CABG, Orthopedic, Pacemaker Emphysema Coronary Artery Disease, Irregular Heartbeat Dementia Renal Failure Family Medical History No Pertinent Family Hx Review of Systems Constitutional: chills; No dizziness, No fever; weakness EENTM: hearing loss; No vision loss Respiratory: No cough, No hemoptysis; short of breath Cardiovascular: No chest pain; edema (BLE), Hx of Intervention (CABG, pacemaker); No palpitations; vascular heart diseas Gastrointestinal: No abdominal pain, No constipation, No diarrhea, No nausea, No vomiting; other (reports last BM yesterday, unreliable historian) Genitourinary: No dysuria, No frequency, No hematuria Musculoskeletal: No back pain, No joint pain, No muscle pain Skin: No change in color, No change in hair/nails Psychiatric/Neurological: Denies Headache, Denies Numbness, Denies Paresthesia; Weakness, Other (somnolent) Other unreliable historian due to delirium/AMS Physical Exam Physical Exam Vital Signs Vital Signs - First Documented 02/02/21 02/02/21 02/03/21 18:35 23:19 00:16 Temp 35.7 Pulse 67 Resp 20 B/P (MAP) 123/76 (92) Pulse Ox 98 O2 Delivery Nasal Cannula O2 Flow Rate 3.00 FiO2 28 Capillary Refill : Less Than 3 Seconds Height, Weight, BMI Height: '" Weight: lbs. oz. kg; 31.55 BMI Method: General Appearance: No Apparent Distress, Chronically ill, Obese Eyes: Bilateral Eye Normal Inspection, Bilateral Eye PERRL HEENT: Normal ENT Inspection; No Moist Mucous Membranes (dry oral mucosa) Neck: Normal Inspection, Non Tender, Supple Respiratory: Chest Non Tender, No Accessory Muscle Use, No Respiratory Distress, Wheezing (bilateral expiratory wheezing) Cardiovascular: Normal Peripheral Pulses, Systolic Murmur, Irregularly Irregular, Other (BLE edema, compression stockings in place) Gastrointestinal: Soft, Abnormal Bowel Sounds (decreased x4 quadrants), Guarding (RUQ), Tenderness (RUQ tenderness with guarding, negative Bethel sign) Rectal: Deferred Back: Normal Inspection, No CVA Tenderness, No Vertebral Tenderness Extremity: Normal Capillary Refill, Non Tender, No Calf Tenderness Neurologic/Psychiatric: No Motor/Sensory Deficits, Disoriented (oriented to self, disoriented to place/time), Other (lethargic/somnolent, arouses to voice/touch, pleasant/cooperative but otherwise confused) Skin: Normal Color, Cool; No Ecchymosis, No Erythema, No Rash Lymphatic: No Adenopathy Comments limited exam, pt not fully cooperative r/t delirium Results Results/Procedures Labs Laboratory Tests 02/02/21 19:38 02/03/21 04:39 Patient resulted labs reviewed. 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 He has a hx of CAD and pacemaker. Cardiology will be consulted. BP is in the 90s and WC is 10.4. ABG is 7.34/50/76. Will monitor pt closely. Source: RN/MD, old records Exam Limitations: clinical condition (delirium/AMS) Past Dzlmgcu-Hgowrd-Godfxv Hx Patient Social History Marrital Status: single Employed/Student: retired Smoking Status: Unknown if Ever Smoked Past Medical History Coronary Artery Disease Dementia Review of Systems ROS-Unable to Obtain: Altered mental status Constitutional: see HPI Physical Exam Physical Exam General Appearance: Anxious, Chronically ill, Obese Respiratory: No Accessory Muscle Use, No Respiratory Distress, Decreased Breath Sounds Cardiovascular: Systolic Murmur, Irregularly Irregular, Other (BLE edema, compression stockings in place) Assessment/Plan Admission Diagnosis Assessment: Altered mental status Sepsis Pneumonia Dementia Plan: ICU care IV antibiotics Supportive care Admission Status: Inpatient Order (span 2 midnights) Reason for Inpatient Admission: Altered mental status with sepsis Supervisory-Addendum Brief Verification & Attestation Participated in pt care: history, MDM, physical Personally performed: exam, history, MDM, supervision of care Care discussed with: Medical Student Procedures: n/a Results interpretation: Verified all documentation Verification and Attestation of Medical Student E/M Service A medical student performed and documented this service in my presence. I reviewed and verified all information documented by the medical student and made modifications to such information, when appropriate. I personally performed the physical exam and medical decision making. Aspen Sandra, Feb 04, 2021,05:57 SHANTANU LÓPEZ MED STUDENT Feb 03, 2021 14:13 ASPEN SANDRA DO Feb 04, 2021 05:59
--- NOTE | 2021-02-03 16:21 | Progress Note ---
Standard Progress Note Progress Notes/Assess & Plan Date Seen by a Provider: Feb 03, 2021 Time Seen by a Provider: 16:21 Progress/Assessment & Plan called by RN for shaking movements jose both UE's, does not lose consciousness, I do not t think these are Sz, will check CMP Mg Elia Billings MD Focused Exam Lactate Level 02/02/21 19:25: Lactic Acid Level 0.97 Time of Focused Exam: 23:10 GUADALUPE BILLINGS MD Feb 03, 2021 16:21
[2021-02-03 17:15] LABS: CALCIUM 9.1 MG/DL (8.5-10.1); CREATININE SERUM 1.35 MG/DL (0.60-1.30)
[2021-02-03] MEDS ORDERED: PEG OU SCH (21:00)
[2021-02-03] MEDS ORDERED: PROPYLENE GLYCOL OU SCH (21:00)
[2021-02-03] MEDS ORDERED: [UNRECOGNIZED DRUG - OTHER] OU SCH (21:00)
[2021-02-03] MEDS ORDERED: NON-FORMULARY MEDICATION 1 EA EA (Sertraline HCl 25 MG) PO SCH (21:00)
[2021-02-03] MEDS: ARTIFICAL TEARS 0.4 ML UNIT DOSE (REFRESH PLUS) OU SCH (21:01)
[2021-02-03] MEDS ORDERED: ACETAMINOPHEN 325 MG TABLET PO PRN (22:30)
[2021-02-03] MEDS ORDERED: CALCIUM CARBONATE 500 MG (TUMS) TAB.CHEW PO PRN (22:30)
[2021-02-03] MEDS: VANCOMYCIN INJECTION 1,250 MG in NS (IVPB) 250 ML IV SCH (23:33)
[2021-02-04] MEDS: AZITHROMYCIN INJECTION 500 MG in NS (IVPB) 250 ML IV SCH (01:01)
[2021-02-04] MEDS: RT-ALBUTEROL/IPRATROPIUM 3 ML (DUONEB) VIAL INH SCH ×4 (02:36→21:43)
[2021-02-04 04:46] LABS: BASOPHILS % (AUTO) 0 % (0-10); HEMOGLOBIN 10.7 g/dL (13.3-17.7); MEAN CORPUSCULAR VOLUME 96 fL (80-99); MONOCYTES # (AUTO) 0.6 10^3/uL (0.0-1.0)
[2021-02-04 04:48] LABS: EOSINOPHILS # (AUTO) 0.1 10^3/uL (0.0-0.3); EOSINOPHILS % (AUTO) 2 % (0-10); HEMATOCRIT 33 % (40-54); LYMPHOCYTES # (AUTO) 1.2 10^3/uL (1.0-4.0); LYMPHOCYTES % (AUTO) 18 % (12-44); MEAN CORPUSCULAR HEMOGLOBIN 31 pg (25-34); MEAN CORPUSCULAR HGB CONC 32 g/dL (32-36); MEAN PLATELET VOLUME 11.2 fL (9.0-12.2); MONOCYTES % (AUTO) 10 % (0-12); NEUTROPHILS # (AUTO) 4.5 10^3/uL (1.8-7.8); NEUTROPHILS % (AUTO) 70 % (42-75); PLATELET COUNT 117 10^3/uL (130-400); WHITE BLOOD COUNT 6.5 10^3/uL (4.3-11.0)
[2021-02-04 05:17] LABS: ALBUMIN 3.8 GM/DL (3.2-4.5); BILIRUBIN,TOTAL 0.7 MG/DL (0.1-1.0); CREATININE SERUM 1.26 MG/DL (0.60-1.30); PHOSPHORUS 2.7 MG/DL (2.3-4.7); TOTAL PROTEIN 6.3 GM/DL (6.4-8.2)
[2021-02-04] MEDS: MAGNESIUM 1 GM/100 ML IVPB 100 ML IV SCH (05:35)
[2021-02-04] MEDS: POTASSIUM CL 10MEQ/50ML IVPB 50 ML IV SCH (05:35)
[2021-02-04] MEDS: KCL 20 MEQ TAB (K-DUR) PO SCH (05:35)
[2021-02-04] MEDS: ZIPRASIDONE 20 MG INJ (GEODON) VIAL IM PRN ×2 (05:47→09:25)
[2021-02-04] MEDS: BETHANECHOL 25 MG (URECHOLINE) TAB PO SCH ×4 (05:48→21:00)
[2021-02-04] MEDS ORDERED: METHYL SALICYLATE/MENTHOL (BENGAY, MUSCLE RUB) 3 OZ TUBE TP PRN (07:00)
--- NOTE | 2021-02-04 08:11 | Cardiology Progress Note ---
Subjective Date Seen by Provider: Feb 04, 2021 Time Seen by Provider: 08:09 Subjective/Events-last exam Patient was seen and evaluated at bedside, morning in bed. Opening his eyes. Not following commands. Review of Systems General: Other (Unable to provide review of system) Focused Exam Lactate Level 02/02/21 19:25: Lactic Acid Level 0.97 Time of Focused Exam: 23:10 Objective-Cardiology Exam Last Set of Vital Signs Vital Signs 02/03/21 02/04/21 02/04/21 02/04/21 00:16 01:02 06:00 06:39 Temp 36.7 Pulse 70 Resp 16 B/P (MAP) 133/77 Pulse Ox 98 O2 Delivery Nasal Cannula O2 Flow Rate 3.00 FiO2 28 I&O Intake and Output 02/04/21 00:00 Intake Total 1400 ml Output Total 1300 ml Balance 100 ml Intake Oral 880 ml IV Total 520 ml Output Urine Total 1300 ml General: Alert, Other (Lethargic not following commands.) HEENT: Atraumatic Lungs: Normal Air Movement, Other (Bilateral rhonchi) Heart: Regular Rate, Other (S3 present) Abdomen: Normal Bowel Sounds Extremities: No Clubbing Skin: No Rashes Neuro: Other (Not following commands or responding appropriately) Psych/Mental Status: Other (Not following commands) Results Lab Laboratory Tests 02/03/21 16:40 02/04/21 03:53 A/P-Cardiology Admission Diagnosis Pneumonia AMS CAD CHF Assessment/Plan Pneumonia, on antibiotics, currently receiveing IVF, management per medical services AMS, possibly secondary to sepsis, currently receiving IVFs, mangagement per medical services Coronary artery disease, s/p CABG in the past. Will continue with conservative management. 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 Had been maintained on Toprol XL, losartan and Lasix as outpatient, currently on hold d/t hypotension. 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 Interrogation done January 2021 showing good sensing and capture activity,continue to monitor Hypertension, monitor BP Hyperlipidemia, continue to monitor as outpatient Renal insufficiency, continue to monitor renal function. Dementia SLADE LOPEZ MD Feb 04, 2021 08:11
[2021-02-04] MEDS: FUROSEMIDE 20 MG (LASIX) TAB PO SCH (08:47)
[2021-02-04] MEDS: PANTOPRAZOLE 40 MG (PROTONIX) TAB PO SCH (08:47)
[2021-02-04] MEDS: DOCUSATE SODIUM 100 MG (COLACE) CAP PO SCH ×2 (08:47→21:00)
[2021-02-04] MEDS: ASPIRIN E.C. 81 MG (ECOTRIN) TAB PO SCH (08:47)
[2021-02-04] MEDS: ARTIFICAL TEARS 0.4 ML UNIT DOSE (REFRESH PLUS) OU SCH ×4 (08:47→22:29)
[2021-02-04] MEDS: CYANOCOBALAMIN 1,000 MCG (VITAMIN B-12) TABLET PO SCH (08:48)
[2021-02-04] MEDS: LORATADINE (CLARITIN) 10 MG TAB PO SCH (08:48)
[2021-02-04] MEDS: SERTRALINE 50 MG (ZOLOFT) TABLET PO SCH (08:48)
[2021-02-04] MEDS: MEMANTINE 10 MG (NAMENDA) TABLET PO SCH ×2 (08:54→21:00)
[2021-02-04] MEDS: ACETAMINOPHEN 325 MG TABLET PO SCH ×2 (08:54→21:00)
[2021-02-04] MEDS ORDERED: NON-FORMULARY MEDICATION 1 EA EA (Sertraline HCl 25 MG) PO SCH (09:00)
[2021-02-04] MEDS ORDERED: WATER (STERILE) FOR INJECTION 10 ML ONE (09:24)
[2021-02-04] MEDS: LACTATED RINGERS 1,000 ML IV SCH (09:27)
[2021-02-04] MEDS: CEFEPIME INJECTION 2,000 MG in WATER (STERILE) FOR INJECTION 20 ML IV SCH ×2 (09:28→22:29)
--- NOTE | 2021-02-04 10:42 | Tele-ICU Progress Note ---
Subjective Date Seen by a Provider: Feb 04, 2021 Time Seen by a Provider: 10:41 Sepsis Event Evaluation Height, Weight, BMI Height: '" Weight: lbs. oz. kg; 31.55 BMI Method: Focused Exam Lactate Level 02/02/21 19:25: Lactic Acid Level 0.97 Time of Focused Exam: 23:10 Exam Exam Patient acknowledged, consented, and participated in this virtual visit which was conducted using real time audio/video Vital Signs Date Time Temp Pulse Resp B/P (MAP) Pulse Ox O2 Delivery O2 Flow Rate FiO2 02/04/21 09:38 35.8 02/04/21 09:00 86 12 153/89 97 Nasal Cannula 3.00 02/04/21 08:00 92 27 127/97 82 Nasal Cannula 3.00 02/04/21 07:50 93 Nasal Cannula 3.00 02/04/21 07:00 88 02/04/21 07:00 89 27 141/69 98 Nasal Cannula 3.00 02/04/21 06:39 98 Nasal Cannula 3.00 02/04/21 06:00 70 16 133/77 100 Nasal Cannula 3.00 02/04/21 05:00 75 16 131/77 95 Nasal Cannula 3.00 02/04/21 04:49 Nasal Cannula 3.00 02/04/21 04:00 93 17 142/74 94 Nasal Cannula 3.00 02/04/21 03:00 73 22 122/75 97 Nasal Cannula 3.00 02/04/21 02:36 97 Nasal Cannula 3.00 02/04/21 02:00 86 17 112/68 Nasal Cannula 3.00 02/04/21 01:02 36.7 02/04/21 01:00 79 21 133/71 Nasal Cannula 3.00 02/04/21 01:00 79 02/04/21 00:00 69 18 135/84 Nasal Cannula 3.00 02/03/21 23:15 Nasal Cannula 3.00 02/03/21 23:00 74 16 136/82 90 Nasal Cannula 3.00 02/03/21 22:00 96 24 134/110 97 Nasal Cannula 3.00 02/03/21 21:47 94 Nasal Cannula 3.00 02/03/21 21:00 87 16 128/83 89 Nasal Cannula 3.00 02/03/21 20:00 65 18 123/57 95 Nasal Cannula 3.00 02/03/21 19:46 Nasal Cannula 3.00 02/03/21 19:42 65 14 93/67 99 Nasal Cannula 3.00 02/03/21 19:26 36.8 02/03/21 19:00 83 02/03/21 19:00 83 20 93/67 Nasal Cannula 3.00 02/03/21 18:00 67 15 161/153 Nasal Cannula 3.00 02/03/21 17:00 81 19 122/81 92 Nasal Cannula 3.00 02/03/21 16:12 36.6 02/03/21 16:00 86 21 94/52 92 Nasal Cannula 3.00 02/03/21 16:00 Nasal Cannula 3.00 02/03/21 15:22 97 Nasal Cannula 3.00 02/03/21 15:00 67 11 134/80 98 Nasal Cannula 3.00 02/03/21 14:00 74 10 123/70 97 Nasal Cannula 3.00 02/03/21 13:00 69 02/03/21 13:00 65 11 160/143 94 Nasal Cannula 3.00 02/03/21 12:00 65 15 128/69 94 Nasal Cannula 3.00 02/03/21 12:00 Nasal Cannula 3.00 02/03/21 11:00 75 10 131/62 95 Nasal Cannula 3.00 I & O 02/04/21 07:00 Intake Total 930 ml Output Total 1350 ml Balance -420 ml Height & Weight Height: '" Weight: lbs. oz. kg; 31.55 BMI Method: General Appearance: Anxious, Chronically ill, Obese HEENT: PERRL/EOMI, Normal ENT Inspection, Pharynx Normal Neck: Normal Inspection Respiratory: No Accessory Muscle Use, No Respiratory Distress, Decreased Breath Sounds Cardiovascular: Systolic Murmur, Irregularly Irregular, Other (BLE edema, compression stockings in place) Capillary Refill: Less Than 3 Seconds Peripheral Pulses: 2+ Radial Pulses (L) Gastrointestinal: normal bowel sounds, non tender, other (appetite poor, meals held) Extremity: Normal Inspection, No Pedal Edema Neurologic/Psychiatric: Alert, No Motor/Sensory Deficits, Normal Mood/Affect, retoucher II-XII Norm as Tested, Disoriented, Other (generalized weakness. Alert to person and age but not date or location.) Skin: Normal Color, Warm/Dry Lymphatic: No Adenopathy Results Lab Laboratory Tests 02/02/21 19:38 02/03/21 04:39 02/03/21 16:40 02/04/21 03:53 Assessment/Plan Assessment/Plan (Tele-ICU Physician , Progress Note ) Available chart/ vitals / labs / Images reviewed Video assessment done using teleICU camera, rest of exam as per RN Discussed with RN , EXAM PER RN Events overnight : Afebrile I/O = even Drips: lr 50 Pressors: , hemodynamically stable Consultants: marianela Hospital course: 01/03 - NH for AMS and weakness to ER -> PNA - >ICU A/P PNA ( neg fly/covi -02/03-cefepime, azithro, vanco ( will await mrsa nasal and sputum cx - ++ secretions - add chest PT Hypotension - sepsi - responded to IVF , not on pressors Resp inufficiency with em - fio2 3 L - ? home level 3L AMS ( CTH neg 02/02 -?TME, AAO x2 - less agitated RHODA , ct 1.5 on admission - no hydro on CT 02/02 - improved - heplock IV CAD ( cabg ) CHF, s/p dual chamber PPM - ECHO 12/2020 - EF 35 % - as per cards AAA - infrarenl , 4.1 cm Lines : (Central Line Necessity Reviewed) Persaud: OG: Nutrition: po Analgesia: Anxiety/ delirium VTE Prophylaxis: lovenoc 40 qd added 02/04 Stress Ulcer Prophylaxis: po Plans in collaboration with bedside consultants and IM MDs. Discussed with RN to reach out if any questions or concerns A total of 33 minutes of critical care time was devoted to this patient today, required to treat and/or prevent further deterioration of critical care condition ( as above) . KYLAH SANTAMARIA MD Feb 04, 2021 10:42
[2021-02-04] MEDS ORDERED: LORazepam INJ 2 MG/ML (ATIVAN) VIAL ONE (11:18)
[2021-02-04] MEDS: ENOXAPARIN 40 MG/0.4 ML (LOVENOX) SYR SC SCH (11:21)
[2021-02-04] MEDS: LORazepam INJ 2 MG/ML (ATIVAN) VIAL IVP PRN ×3 (11:45→18:53)
--- NOTE | 2021-02-04 13:52 | Progress Note - Hospitalist ---
SHANTANU LÓPEZ MED STUDENT 02/04/21 1352: Subjective HPI/CC On Admission Date Seen by Provider: Feb 04, 2021 Time Seen by Provider: 08:50 CC: Altered mental status Subjective/Events-last exam Pt seen and examined. He was awake, alert, sitting up in bed. Appears more awake/alert compared to yesterday. Oriented to self/time, disoriented to place, very poor historian. Continues to show signs of delirium with nonsensical gibberish. Intermittent episodes of agitation/pulling at lines. No complaints of chest pain, SOB above baseline, N/V. Review of Systems General: Chills HEENT: No Head Aches, No Eye Pain Pulmonary: Dyspnea, Cough Cardiovascular: Edema (moderate BLE edema, compression stockings in place); No: Chest Pain Gastrointestinal: No: Nausea, Vomiting, Diarrhea, Constipation Genitourinary: No Dysuria, No Hematuria Musculoskeletal: No: neck pain, back pain Neurological: Weakness, Confusion; No: Numbness Focused Exam Sepsis Stage: Sepsis Possible Source: Pulmonary Lactate Level 02/02/21 19:25: Lactic Acid Level 0.97 Time of Focused Exam: 08:50 Respiratory: Chest Non Tender, No Accessory Muscle Use, No Respiratory Distress, Expiration (rhonchi/gurgling in upper airways) Cardiovascular: No JVD, Normal Peripheral Pulses, Systolic Murmur, Other (irregular, paced rhythm) Peripheral Pulses: 2+ Dorsalis Pedis (R), 2+ Left Dors-Pedis (L), 2+ Radial Pulses (R), 2+ Radial Pulses (L) Skin: normal color, warm/dry; No rash, No ulcerations Objective Exam Vital Signs Vital Signs Date Time Temp Pulse Resp B/P (MAP) Pulse Ox O2 Delivery O2 Flow Rate FiO2 02/04/21 11:59 36.3 02/04/21 09:00 86 12 153/89 97 Nasal Cannula 3.00 02/03/21 00:16 28 Capillary Refill : Less Than 3 Seconds General Appearance: Anxious (intermittent agitation), Chronically ill, Obese HEENT: PERRL/EOMI, Normal ENT Inspection, Other Neck: Full Range of Motion, Normal Inspection, Non Tender, Supple Respiratory: Chest Non Tender, No Accessory Muscle Use, No Respiratory Distress, Other (bilateral expiratory rhonchi in upper lung camp) Cardiovascular: No JVD, Normal Peripheral Pulses, Systolic Murmur, Other (paced rhythm, BLE edema with compression stockings in place) Gastrointestinal: Normal Bowel Sounds, Soft, Other (large abd with mild tenderness/guarding on palpation to RUQ) Rectal: Deferred Back: Normal Inspection, No CVA Tenderness, No Vertebral Tenderness Extremity: Normal Capillary Refill, Normal Inspection, Non Tender, No Calf Tenderness, Pedal Edema (mild bilateral) Neurologic/Psychiatric: Alert, No Motor/Sensory Deficits, Depressed Affect, Disoriented (oriented to self/time, disoriented to place) Skin: Normal Color, Warm/Dry Lymphatic: No Adenopathy Results/Procedures Lab Laboratory Tests 02/03/21 16:40 02/04/21 03:53 Patient resulted labs reviewed. Imaging: Reviewed Imaging Films, Reviewed Imaging Report Assessment/Plan Assessment and Plan Assess & Plan/Chief Complaint Suspected sepsis r/t pneumonia WBC 6.5 Monitor VS/labs, assess fluid status, IVF bolus as indicated Urine culture: contaminated/skin kassie Blood cultures: negative Delirium still present, somnolence improving EICU following; Continue abx; Cefepime, Vancomycin, Azithromycin Renal insufficiency Improving; Cr 1.26 CAD HTN HLD CHB w/ pacemaker Cardiology consulted; appreciate recs Hold HTN meds due to hypotension VS/labs stable, transfer to 4th floor today ASPEN KELLY DO 02/05/21 0519: Subjective Subjective/Events-last exam Patient still confused Delirium is significant Oriented x2 at times Hallucinating White count 6.5 All cultures are no growth to date Transferring to floor Review of Systems Neurological: Confusion Objective Exam General Appearance: Chronically ill, Obese, Other (Restless) Respiratory: Crackles, Rales Cardiovascular: Systolic Murmur Neurologic/Psychiatric: Alert, Disoriented (oriented to self/time, disoriented to place) Assessment/Plan Assessment and Plan Assess & Plan/Chief Complaint Transfer to floor DNR Supportive care IV antibiotics Supervisory-Addendum Brief Verification & Attestation Participated in pt care: history, MDM, physical Personally performed: exam, history, MDM, supervision of care Care discussed with: Medical Student Procedures: n/a Results interpretation: Verified all documentation Verification and Attestation of Medical Student E/M Service A medical student performed and documented this service in my presence. I re viewed and verified all information documented by the medical student and made modifications to such information, when appropriate. I personally performed the physical exam and medical decision making. Aspen Kelly, Feb 05, 2021,05:18 SHANTANU LÓPEZ MED STUDENT Feb 04, 2021 13:52 ASPEN KELLY DO Feb 05, 2021 05:19
--- NOTE | 2021-02-04 15:12 | Physician Query Clarification ---
Physician Query-General Query to Physician: The medical record reflects the following clinical evidence: Clinical Indicators: "suspect AMS is due to sepsis" per Dr. Meredith Luo, "AMS possibly secondary to sepsis" Per Dr. Justin Muhammad, GCS 13 on admission, currently 14, per CT: no acute intracranial abnormality Risk Factor(s): Sepsis, pneumonia, Dementia, advanced age Treatment: Monitoring of neuro status, CT Head, IV fluids, IV ABX's, Geodon, 1. Metabolic encephalopathy, present on admission 2. Other explanation of clinical findings 3. Unable to determine (no explanation for clinical findings) Please clarify and document your clinical opinion in the progress notes and discharge summary including the definitive and/or presumptive diagnosis, (suspected or probable), related to the above clinical findings. Please include clinical findings supporting your diagnosis. Jenny Juarez MSN, RN Clinical Dye Weigher Helper [phone] [email or web address] PHYSICIAN RESPONSE: Based on the clinical findings in the record, please respond to the query above on this document as an addendum. Physician Response: Physician Response 1 If you have questions please contact: Lane Marker Installer: Ext: Thank you for your time and cooperation. Clinical Dye Weigher Helper/Lane Marker Installer This is a permanent part of the medical record JENNY JUAREZ Feb 04, 2021 15:12 ZHANNA KELLY DO Feb 08, 2021 20:49
[2021-02-04] MEDS: TAMSULOSIN 0.4 MG (FLOMAX) CAP PO SCH (16:41)
[2021-02-05] MEDS: AZITHROMYCIN INJECTION 500 MG in NS (IVPB) 250 ML IV SCH (01:19)
[2021-02-05] MEDS: VANCOMYCIN INJECTION 1,250 MG in NS (IVPB) 250 ML IV SCH (01:19)
[2021-02-05] MEDS: RT-ALBUTEROL/IPRATROPIUM 3 ML (DUONEB) VIAL INH SCH ×4 (02:56→21:48)
[2021-02-05 04:27] LABS: EOSINOPHILS # (AUTO) 0.2 10^3/uL (0.0-0.3); EOSINOPHILS % (AUTO) 4 % (0-10); MEAN PLATELET VOLUME 10.7 fL (9.0-12.2)
[2021-02-05 04:30] LABS: BASOPHILS % (AUTO) 1 % (0-10); HEMATOCRIT 35 % (40-54); HEMOGLOBIN 11.2 g/dL (13.3-17.7); LYMPHOCYTES # (AUTO) 0.9 10^3/uL (1.0-4.0); LYMPHOCYTES % (AUTO) 14 % (12-44); MEAN CORPUSCULAR HEMOGLOBIN 31 pg (25-34); MEAN CORPUSCULAR HGB CONC 32 g/dL (32-36); MEAN CORPUSCULAR VOLUME 96 fL (80-99); MONOCYTES # (AUTO) 0.7 10^3/uL (0.0-1.0); MONOCYTES % (AUTO) 12 % (0-12); NEUTROPHILS # (AUTO) 4.5 10^3/uL (1.8-7.8); NEUTROPHILS % (AUTO) 70 % (42-75); PLATELET COUNT 127 10^3/uL (130-400); WHITE BLOOD COUNT 6.5 10^3/uL (4.3-11.0)
[2021-02-05 04:58] LABS: ALBUMIN 3.7 GM/DL (3.2-4.5); BILIRUBIN,TOTAL 0.6 MG/DL (0.1-1.0); CALCIUM 9.3 MG/DL (8.5-10.1); CREATININE SERUM 1.08 MG/DL (0.60-1.30); TOTAL PROTEIN 6.4 GM/DL (6.4-8.2)
[2021-02-05] MEDS: LACTATED RINGERS 1,000 ML IV SCH (05:15)
[2021-02-05] MEDS: BETHANECHOL 25 MG (URECHOLINE) TAB PO SCH ×4 (06:55→20:48)
[2021-02-05] MEDS: ARTIFICAL TEARS 0.4 ML UNIT DOSE (REFRESH PLUS) OU SCH ×4 (09:33→20:48)
[2021-02-05] MEDS: CYANOCOBALAMIN 1,000 MCG (VITAMIN B-12) TABLET PO SCH (10:00)
[2021-02-05] MEDS: ACETAMINOPHEN 325 MG TABLET PO SCH ×2 (10:00→20:48)
[2021-02-05] MEDS: MEMANTINE 10 MG (NAMENDA) TABLET PO SCH ×2 (10:00→20:48)
--- NOTE | 2021-02-05 11:13 | Progress Note - Cardiology ---
Cardiology SOAP Progress Note Subjective: Lying in bed; sitter at the bedside Lethargic, opens eyes, does not answer any questions Objective: I&O/Vital Signs 02/04/21 02/05/21 02/05/21 02/05/21 23:17 00:00 01:00 02:56 Temp 35.8 Pulse 71 70 Resp 17 B/P (MAP) 150/75 Pulse Ox 99 99 O2 Delivery Nasal Cannula Nasal Cannula O2 Flow Rate 3.00 2.00 02/05/21 02/05/21 02/05/21 02/05/21 02:57 04:00 04:36 07:00 Temp 36.0 Pulse 61 73 Resp 16 B/P (MAP) 124/86 Pulse Ox 96 O2 Delivery Nasal Cannula Nasal Cannula O2 Flow Rate 2.00 2.00 02/05/21 02/05/21 02/05/21 02/05/21 08:00 08:00 08:13 08:16 Temp 36.6 Pulse 65 67 Resp 19 18 B/P (MAP) 147/82 147/82 Pulse Ox 97 94 94 O2 Delivery Nasal Cannula Nasal Cannula Nasal Cannula O2 Flow Rate 2.00 2.00 2.00 02/05/21 09:58 Pulse Ox 92 O2 Delivery Nasal Cannula O2 Flow Rate 2.00 02/05/21 00:00 Intake Total 420 ml Output Total 550 ml Balance -130 ml Constitutional: well-developed, well-nourished, other (Lethargic) Respiratory: No accessory muscle use, No respiratory distress; chest expansion is symmetric, rhonchi (scattered) Cardiovascular: regular rate-rhythm; No JVD; S1 and S2 Gastrointestional: soft, audible bowel sounds Extremities: no lower extremity edema bilateral Neurologic/Psychiatric: grossly intact (moves extremities) Skin: normal color, warm/dry; No rash, No ulcerations Results/Procedures: Labs Laboratory Tests 02/05/21 04:19: White Blood Count 6.5, Red Blood Count 3.63L, Hemoglobin 11.2L, Hematocrit 35L, Mean Corpuscular Volume 96, Mean Corpuscular Hemoglobin 31, Mean Corpuscular Hemoglobin Concent 32, Red Cell Distribution Width 13.1, Platelet Count 127L, Mean Platelet Volume 10.7, Immature Granulocyte % (Auto) 1, Neutrophils (%) (Auto) 70, Lymphocytes (%) (Auto) 14, Monocytes (%) (Auto) 12, Eosinophils (%) (Auto) 4, Basophils (%) (Auto) 1, Neutrophils # (Auto) 4.5, Lymphocytes # (Auto) 0.9L, Monocytes # (Auto) 0.7, Eosinophils # (Auto) 0.2, Basophils # (Auto) 0.0, Immature Granulocyte # (Auto) 0.0, Percent Immature Platelet Fraction 6.3, Sodium Level 139, Potassium Level 4.0, Chloride Level 103, Carbon Dioxide Level 24, Anion Gap 12, Blood Urea Nitrogen 21H, Creatinine 1.08, Estimat Glomerular Filtration Rate 64, BUN/Creatinine Ratio 19, Glucose Level 101, Calcium Level 9.3, Corrected Calcium 9.5, Total Bilirubin 0.6, Aspartate Amino Transf (AST/SGOT) 14, Alanine Aminotransferase (ALT/SGPT) 9, Alkaline Phosphatase 49, Total Protein 6.4, Albumin 3.7 Microbiology 02/02/21 MRSA Screen - Final, Complete MRSA not isolated 02/02/21 Blood Culture - Preliminary, Resulted No growth 02/02/21 Urine Culture - Final, Complete Mixed Bacterial Richelle Laboratory Tests 02/03/21 16:40 02/04/21 03:53 02/05/21 04:19 A/P: Assessment: Pneumonia, on antibiotics, currently receiveing IVF, management per medical s ervices AMS with h/o dementia Coronary artery disease - H/O CABG - conservative management per Dr. Muhammad ICM - echocardiogram done November [address] 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 Interrogation done January 2021 showing good sensing and capture activity,continue to monitor - followed by Dr. Muhammad Hypertension - adjust regimen Hyperlipidemia Acute Renal insufficiency likely secondary to hypotension d/t sepsis - resolved Dementia Plan: Chart review completed Continue medication regimen Adjust as indicated Monitor lab closely Management of pneumonia per medical services CASIE PHELPS Feb 05, 2021 11:13
[2021-02-05 12:00] VITALS: BP 131/78
--- NOTE | 2021-02-05 12:58 | Progress Note - Hospitalist ---
SHANTANU LÓPEZ MED STUDENT 02/05/21 1258: Subjective HPI/CC On Admission Date Seen by Provider: Feb 05, 2021 Time Seen by Provider: 09:45 CC: Altered mental status Subjective/Events-last exam Pt transferred to 4th floor this morning. He was resting in bed, asleep, NAD. Experienced some issues with agitation overnight requiring medication, but otherwise no issues per nursing. Review of Systems HEENT: No Head Aches Pulmonary: Dyspnea; No Cough Cardiovascular: Edema; No: Chest Pain, Orthopnea Gastrointestinal: Abdominal Pain; No: Nausea, Vomiting, Diarrhea, Constipation Genitourinary: No Dysuria Musculoskeletal: No: neck pain, back pain Neurological: Confusion Focused Exam Lactate Level 02/02/21 19:25: Lactic Acid Level 0.97 Time of Focused Exam: 08:50 Objective Exam Vital Signs Vital Signs Date Time Temp Pulse Resp B/P (MAP) Pulse Ox O2 Delivery O2 Flow Rate FiO2 02/05/21 09:58 92 Nasal Cannula 2.00 02/05/21 08:13 67 18 147/82 02/05/21 08:00 36.6 02/03/21 00:16 28 Capillary Refill : Less Than 3 Seconds General Appearance: No Apparent Distress, Anxious, Chronically ill, Obese HEENT: PERRL/EOMI, Normal ENT Inspection, Pharynx Normal Neck: Full Range of Motion, Normal Inspection, Non Tender, Supple Respiratory: Chest Non Tender, No Accessory Muscle Use, No Respiratory Distre ss, Expiration, Rhonci, Wheezing Cardiovascular: Regular Rate, Rhythm (paced), No JVD, Normal Peripheral Pulses, Systolic Murmur, Other (moderate BLE edema with compression stockings in place) Gastrointestinal: Normal Bowel Sounds, Soft; No Distended; Tenderness (mild RUQ) Rectal: Deferred Back: Normal Inspection, No CVA Tenderness, No Vertebral Tenderness Extremity: Normal Capillary Refill, Normal Inspection, Normal Range of Motion, Non Tender, No Calf Tenderness, Swelling (BLE moderate) Neurologic/Psychiatric: Alert, No Motor/Sensory Deficits, Disoriented, Other (intermittent agitation) Skin: Normal Color, Warm/Dry Lymphatic: No Adenopathy Results/Procedures Lab Laboratory Tests 02/05/21 04:19 Patient resulted labs reviewed. Imaging: Reviewed Imaging Films, Reviewed Imaging Report Assessment/Plan Assessment and Plan Assess & Plan/Chief Complaint Suspected sepsis r/t pneumonia WBC 6.5 Monitor VS/labs, assess fluid status, IVF bolus as indicated Delirium still present, somnolence improving EICU following; Continue abx; Cefepime, Vancomycin, Azithromycin Renal insufficiency Improving; Cr 1.08 CAD HTN HLD CHB w/ pacemaker Cardiology consulted; appreciate recs Hold HTN meds due to hypotension VS/labs stable, transfer to 4th floor today ASPEN KELLY DO 02/06/21 0849: Subjective Subjective/Events-last exam Patient still sedated Palliative care consult in order DNR Unsure if this is recoverable Objective Exam General Appearance: No Apparent Distress, WD/WN, Chronically ill, Obese Respiratory: Decreased Breath Sounds Cardiovascular: Regular Rate, Rhythm (paced) Assessment/Plan Assessment and Plan Assess & Plan/Chief Complaint Assessment: Sepsis Pneumonia Dementia Delirium Atrial fibrillation Plan: Attempt to help recovery DNR Likely palliative care will help with end-of-life Supervisory-Addendum Brief Verification & Attestation Participated in pt care: history, MDM, physical Personally performed: exam, history, MDM, supervision of care Care discussed with: Medical Student Procedures: n/a Results interpretation: Verified all documentation Verification and Attestation of Medical Student E/M Service A medical student performed and documented this service in my presence. I reviewed and verified all information documented by the medical student and made modifications to such information, when appropriate. I personally performed the physical exam and medical decision making. Aspen Kelly, Feb 06, 2021,08:48 SHANTANU LÓPEZ MED STUDENT Feb 05, 2021 12:58 ASPEN KELLY DO Feb 06, 2021 08:49
[2021-02-05] MEDS: CEFEPIME INJECTION 2,000 MG in WATER (STERILE) FOR INJECTION 20 ML IV SCH ×2 (13:52→20:47)
[2021-02-05] MEDS: ENOXAPARIN 40 MG/0.4 ML (LOVENOX) SYR SC SCH (13:52)
[2021-02-05] MEDS: SERTRALINE 50 MG (ZOLOFT) TABLET PO SCH (13:57)
[2021-02-05] MEDS: ASPIRIN E.C. 81 MG (ECOTRIN) TAB PO SCH (13:57)
[2021-02-05] MEDS: FUROSEMIDE 20 MG (LASIX) TAB PO SCH (14:08)
[2021-02-05] MEDS: LORATADINE (CLARITIN) 10 MG TAB PO SCH (14:11)
[2021-02-05] MEDS: DOCUSATE SODIUM 100 MG (COLACE) CAP PO SCH ×2 (14:11→20:48)
[2021-02-05] MEDS: PANTOPRAZOLE 40 MG (PROTONIX) TAB PO SCH (14:11)
[2021-02-05 15:05] VITALS: BP 141/79
--- NOTE | 2021-02-05 15:24 | Progress Note - Cardiology ---
Cardiology SOAP Progress Note Subjective: Verbally nonresponsive. Does not provide any symptoms Objective: I&O/Vital Signs 02/05/21 02/05/21 02/05/21 02/05/21 04:00 04:36 07:00 08:00 Temp 36.0 Pulse 61 73 65 Resp 16 19 B/P (MAP) 124/86 147/82 Pulse Ox 96 97 O2 Delivery Nasal Cannula Nasal Cannula O2 Flow Rate 2.00 2.00 02/05/21 02/05/21 02/05/21 02/05/21 08:00 08:13 08:16 09:58 Temp 36.6 Pulse 67 Resp 18 B/P (MAP) 147/82 Pulse Ox 94 94 92 O2 Delivery Nasal Cannula Nasal Cannula Nasal Cannula O2 Flow Rate 2.00 2.00 2.00 02/05/21 02/05/21 12:00 15:05 Temp 36.8 36.5 Pulse 71 80 Resp 18 20 B/P (MAP) 131/78 (95) 141/79 (99) Pulse Ox 94 93 O2 Delivery Nasal Cannula Nasal Cannula O2 Flow Rate 2.00 2.00 02/05/21 00:00 Intake Total 420 ml Output Total 550 ml Balance -130 ml Constitutional: well-developed, well-nourished, other (Lethargic) Respiratory: No accessory muscle use, No respiratory distress; chest expansion is symmetric, rhonchi (scattered) Cardiovascular: regular rate-rhythm; No JVD; S1 and S2 Gastrointestional: soft, audible bowel sounds Extremities: no lower extremity edema bilateral Neurologic/Psychiatric: grossly intact (moves extremities) Skin: normal color, warm/dry; No rash, No ulcerations Results/Procedures: Labs Laboratory Tests 02/05/21 04:19: White Blood Count 6.5, Red Blood Count 3.63L, Hemoglobin 11.2L, Hematocrit 35L, Mean Corpuscular Volume 96, Mean Corpuscular Hemoglobin 31, Mean Corpuscular Hemoglobin Concent 32, Red Cell Distribution Width 13.1, Platelet Count 127L, Mean Platelet Volume 10.7, Immature Granulocyte % (Auto) 1, Neutrophils (%) (Auto) 70, Lymphocytes (%) (Auto) 14, Monocytes (%) (Auto) 12, Eosinophils (%) (Auto) 4, Basophils (%) (Auto) 1, Neutrophils # (Auto) 4.5, Lymphocytes # (Auto) 0.9L, Monocytes # (Auto) 0.7, Eosinophils # (Auto) 0.2, Basophils # (Auto) 0.0, Immature Granulocyte # (Auto) 0.0, Percent Immature Platelet Fraction 6.3, Sodium Level 139, Potassium Level 4.0, Chloride Level 103, Carbon Dioxide Level 24, Anion Gap 12, Blood Urea Nitrogen 21H, Creatinine 1.08, Estimat Glomerular Filtration Rate 64, BUN/Creatinine Ratio 19, Glucose Level 101, Calcium Level 9.3, Corrected Calcium 9.5, Total Bilirubin 0.6, Aspartate Amino Transf (AST/SGOT) 14, Alanine Aminotransferase (ALT/SGPT) 9, Alkaline Phosphatase 49, Total Protein 6.4, Albumin 3.7 Microbiology 02/02/21 MRSA Screen - Final, Complete MRSA not isolated 02/02/21 Blood Culture - Preliminary, Resulted No growth 02/02/21 Urine Culture - Final, Complete Mixed Bacterial Richelle Laboratory Tests 02/03/21 16:40 02/04/21 03:53 02/05/21 04:19 A/P: Assessment: Pneumonia, on antibiotics, currently receiveing IVF, management by Medical services AMS and h/o dementia, management by [facility] Coronary artery disease - H/O CABG - conservative management per Dr. Muhammad ICM - echocardiogram done November [address] 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 Interrogation done January 2021 showing good sensing and capture activity,continue to monitor - followed by Dr. Muhammad Hypertension - adjust regimen Hyperlipidemia Acute Renal insufficiency likely secondary to hypotension d/t sepsis - resolved Dementia Plan: Chart review completed Continue medication regimen Adjust as indicated Monitor lab closely Management of pneumonia per Medical services MAXIME AGUIRRE MD [facility] Feb 05, 2021 15:24
[2021-02-05] MEDS: TAMSULOSIN 0.4 MG (FLOMAX) CAP PO SCH (17:24)
[2021-02-05 19:28] VITALS: BP 117/56
[2021-02-05] MEDS ORDERED: TROUGH ORDER-PHARMACY XX NR (23:30)
[2021-02-06 00:13] VITALS: BP 125/59
[2021-02-06] MEDS: LACTATED RINGERS 1,000 ML IV SCH (01:44)
[2021-02-06] MEDS: AZITHROMYCIN INJECTION 500 MG in NS (IVPB) 250 ML IV SCH (01:45)
[2021-02-06] MEDS: RT-ALBUTEROL/IPRATROPIUM 3 ML (DUONEB) VIAL INH SCH ×4 (02:30→21:44)
[2021-02-06 04:17] VITALS: BP 115/57
[2021-02-06] MEDS: BETHANECHOL 25 MG (URECHOLINE) TAB PO SCH ×4 (06:43→19:48)
[2021-02-06 07:16] LABS: MEAN CORPUSCULAR VOLUME 96 fL (80-99); MEAN PLATELET VOLUME 10.8 fL (9.0-12.2)
[2021-02-06 07:17] LABS: BASOPHILS % (AUTO) 1 % (0-10); EOSINOPHILS # (AUTO) 0.2 10^3/uL (0.0-0.3); EOSINOPHILS % (AUTO) 4 % (0-10); HEMATOCRIT 34 % (40-54); HEMOGLOBIN 10.9 g/dL (13.3-17.7); LYMPHOCYTES % (AUTO) 19 % (12-44); MEAN CORPUSCULAR HEMOGLOBIN 31 pg (25-34); MEAN CORPUSCULAR HGB CONC 32 g/dL (32-36); MONOCYTES # (AUTO) 0.6 10^3/uL (0.0-1.0); MONOCYTES % (AUTO) 12 % (0-12); NEUTROPHILS # (AUTO) 3.2 10^3/uL (1.8-7.8); NEUTROPHILS % (AUTO) 64 % (42-75); PLATELET COUNT 135 10^3/uL (130-400)
[2021-02-06 07:45] LABS: SMEAR SCAN COMMENT YES
[2021-02-06 07:50] VITALS: BP 121/59
[2021-02-06 07:52] LABS: ALBUMIN 3.6 GM/DL (3.2-4.5); BILIRUBIN,TOTAL 0.7 MG/DL (0.1-1.0); CALCIUM 9.7 MG/DL (8.5-10.1); CREATININE SERUM 1.24 MG/DL (0.60-1.30); POTASSIUM 4.4 MMOL/L (3.6-5.0); TOTAL PROTEIN 6.6 GM/DL (6.4-8.2)
[2021-02-06] MEDS: LORATADINE (CLARITIN) 10 MG TAB PO SCH (08:42)
[2021-02-06] MEDS: SERTRALINE 50 MG (ZOLOFT) TABLET PO SCH (08:43)
[2021-02-06] MEDS: ASPIRIN E.C. 81 MG (ECOTRIN) TAB PO SCH (08:43)
[2021-02-06] MEDS: MEMANTINE 10 MG (NAMENDA) TABLET PO SCH ×2 (08:43→19:48)
[2021-02-06] MEDS: FUROSEMIDE 20 MG (LASIX) TAB PO SCH (08:43)
[2021-02-06] MEDS: DOCUSATE SODIUM 100 MG (COLACE) CAP PO SCH ×2 (08:43→19:48)
[2021-02-06] MEDS: ACETAMINOPHEN 325 MG TABLET PO SCH ×2 (08:44→19:48)
[2021-02-06] MEDS: CYANOCOBALAMIN 1,000 MCG (VITAMIN B-12) TABLET PO SCH (08:47)
[2021-02-06] MEDS: CEFEPIME INJECTION 2,000 MG in WATER (STERILE) FOR INJECTION 20 ML IV SCH ×2 (08:52→21:18)
[2021-02-06] MEDS: ARTIFICAL TEARS 0.4 ML UNIT DOSE (REFRESH PLUS) OU SCH ×4 (09:53→19:50)
[2021-02-06] MEDS: PANTOPRAZOLE 40 MG (PROTONIX) TAB PO SCH (09:53)
[2021-02-06] MEDS: ENOXAPARIN 40 MG/0.4 ML (LOVENOX) SYR SC SCH (09:55)
[2021-02-06 12:00] VITALS: BP 162/75
--- NOTE | 2021-02-06 12:07 | Progress Note - Hospitalist ---
Subjective HPI/CC On Admission Date Seen by Provider: Feb 06, 2021 Time Seen by Provider: 12:05 CC: Altered mental status Subjective/Events-last exam No major changes Upper respiratory gurgles could be rattle Unsure of recovery ability at 89 years old Focused Exam Time of Focused Exam: 08:50 Objective Exam Vital Signs Vital Signs Date Time Temp Pulse Resp B/P (MAP) Pulse Ox O2 Delivery O2 Flow Rate FiO2 02/07/21 04:18 36.4 57 20 137/70 (92) 91 Nasal Cannula 4.00 02/03/21 00:16 28 Capillary Refill : Less Than 3 Seconds General Appearance: Chronically ill, Obese, Other (Somewhat comatose) Results/Procedures Lab Laboratory Tests 02/06/21 07:09 Patient resulted labs reviewed. Imaging: Reviewed Imaging Films, Reviewed Imaging Report Assessment/Plan Assessment and Plan Assess & Plan/Chief Complaint Assessment: Sepsis Pneumonia Dementia Delirium Atrial fibrillation Plan: Attempt to help recovery DNR Likely palliative care will help with end-of-life Critical Care Critically Ill Patient ZHANNA KELLY DO Feb 06, 2021 12:07
[2021-02-06 15:12] VITALS: BP 138/76
--- NOTE | 2021-02-06 15:52 | Progress Note - Cardiology ---
Cardiology SOAP Progress Note Subjective: Verbally unresponsive Objective: I&O/Vital Signs 02/06/21 02/06/21 02/06/21 02/06/21 04:17 07:50 09:00 10:03 Temp 36.2 36.4 Pulse 69 66 Resp 16 18 B/P (MAP) 115/57 (76) 121/59 (79) Pulse Ox 93 93 93 94 O2 Delivery Nasal Cannula Nasal Cannula Nasal Cannula O2 Flow Rate 4.00 4.00 4.00 02/06/21 02/06/21 02/06/21 12:00 15:12 15:21 Temp 36.5 36.8 Pulse 66 84 Resp 18 22 B/P (MAP) 162/75 (104) 138/76 (96) Pulse Ox 95 98 94 O2 Delivery Nasal Cannula Nasal Cannula Nasal Cannula O2 Flow Rate 4.00 4.00 4.00 02/06/21 00:00 Intake Total 740 ml Output Total 575 ml Balance 165 ml Constitutional: well-developed, well-nourished, other (Lethargic and verbally unresponsive) Respiratory: No accessory muscle use, No respiratory distress; chest expansion is symmetric, rhonchi (scattered) Cardiovascular: regular rate-rhythm; No JVD; S1 and S2 Gastrointestional: soft, audible bowel sounds Extremities: no lower extremity edema bilateral Neurologic/Psychiatric: grossly intact (moves extremities) Skin: normal color, warm/dry; No rash, No ulcerations Results/Procedures: Labs Laboratory Tests 02/06/21 07:09: White Blood Count 5.0, Red Blood Count 3.50L, Hemoglobin 10.9L, Hematocrit 34L, Mean Corpuscular Volume 96, Mean Corpuscular Hemoglobin 31, Mean Corpuscular Hemoglobin Concent 32, Red Cell Distribution Width 13.2, Platelet Count 135, Mean Platelet Volume 10.8, Immature Granulocyte % (Auto) 0, Neutrophils (%) (Auto) 64, Lymphocytes (%) (Auto) 19, Monocytes (%) (Auto) 12, Eosinophils (%) (Auto) 4, Basophils (%) (Auto) 1, Neutrophils # (Auto) 3.2, Lymphocytes # (Auto) 1.0, Monocytes # (Auto) 0.6, Eosinophils # (Auto) 0.2, Basophils # (Auto) 0.0, Immature Granulocyte # (Auto) 0.0, Percent Immature Platelet Fraction 5.9, Sodium Level 138, Potassium Level 4.4, Chloride Level 102, Carbon Dioxide Level 25, Anion Gap 11, Blood Urea Nitrogen 26H, Creatinine 1.24, Estimat Glomerular Filtration Rate 55, BUN/Creatinine Ratio 21, Glucose Level 96, Calcium Level 9.7, Corrected Calcium 10.0, Total Bilirubin 0.7, Aspartate Amino Transf (AST/SGOT) 13, Alanine Aminotransferase (ALT/SGPT) 9, Alkaline Phosphatase 48, Total Protein 6.6, Albumin 3.6, Smear Scan YES Microbiology 02/02/21 MRSA Screen - Final, Complete MRSA not isolated 02/02/21 Blood Culture - Preliminary, Resulted No growth 02/02/21 Urine Culture - Final, Complete Mixed Bacterial Richelle Laboratory Tests 02/05/21 04:19 02/06/21 07:09 A/P: Assessment: Pneumonia, on antibiotics, currently receiveing IVF, management by Medical services AMS and h/o dementia, management by Med ces Coronary artery disease - H/O CABG - conservative management per Dr. Muhammad ICM - echocardiogram done November [address] 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 Interrogation done January 2021 showing good sensing and capture activity,continue to monitor - followed by Dr. Muhammad Hypertension - adjust regimen Hyperlipidemia Acute Renal insufficiency likely secondary to hypotension d/t sepsis - resolved Dementia Plan: Monitor lab closely Management of pneumonia per Medical services MAXIME AGUIRRE MD FACP [facility] CCDS Feb 06, 2021 15:52
[2021-02-06] MEDS: TAMSULOSIN 0.4 MG (FLOMAX) CAP PO SCH (16:14)
[2021-02-06 19:25] VITALS: BP 139/80
[2021-02-06] MEDS: LORazepam INJ 2 MG/ML (ATIVAN) VIAL IVP PRN (19:44)
[2021-02-07 00:37] VITALS: BP 134/68
[2021-02-07] MEDS: AZITHROMYCIN INJECTION 500 MG in NS (IVPB) 250 ML IV SCH (01:38)
[2021-02-07] MEDS: RT-ALBUTEROL/IPRATROPIUM 3 ML (DUONEB) VIAL INH SCH ×4 (02:59→22:00)
[2021-02-07 04:18] VITALS: BP 137/70
[2021-02-07] MEDS: BETHANECHOL 25 MG (URECHOLINE) TAB PO SCH ×4 (06:05→22:01)
[2021-02-07 06:32] LABS: BASOPHILS % (AUTO) 1 % (0-10); EOSINOPHILS # (AUTO) 0.2 10^3/uL (0.0-0.3); EOSINOPHILS % (AUTO) 4 % (0-10); HEMATOCRIT 35 % (40-54); HEMOGLOBIN 11.4 g/dL (13.3-17.7); LYMPHOCYTES # (AUTO) 1.1 10^3/uL (1.0-4.0); LYMPHOCYTES % (AUTO) 18 % (12-44); MEAN CORPUSCULAR HEMOGLOBIN 31 pg (25-34); MEAN CORPUSCULAR HGB CONC 32 g/dL (32-36); MEAN CORPUSCULAR VOLUME 95 fL (80-99); MONOCYTES # (AUTO) 0.9 10^3/uL (0.0-1.0); MONOCYTES % (AUTO) 14 % (0-12); NEUTROPHILS # (AUTO) 3.8 10^3/uL (1.8-7.8); NEUTROPHILS % (AUTO) 63 % (42-75); PLATELET COUNT 141 10^3/uL (130-400)
[2021-02-07 06:49] LABS: BILIRUBIN,TOTAL 0.7 MG/DL (0.1-1.0); CALCIUM 9.7 MG/DL (8.5-10.1); CREATININE SERUM 1.24 MG/DL (0.60-1.30); POTASSIUM 4.6 MMOL/L (3.6-5.0)
[2021-02-07 07:18] VITALS: BP 130/78
[2021-02-07] MEDS: DOCUSATE SODIUM 100 MG (COLACE) CAP PO SCH ×2 (09:48→22:02)
[2021-02-07] MEDS: FUROSEMIDE 20 MG (LASIX) TAB PO SCH (09:48)
[2021-02-07] MEDS: PANTOPRAZOLE 40 MG (PROTONIX) TAB PO SCH (09:48)
[2021-02-07] MEDS: ASPIRIN E.C. 81 MG (ECOTRIN) TAB PO SCH (09:48)
[2021-02-07] MEDS: LORATADINE (CLARITIN) 10 MG TAB PO SCH (09:48)
[2021-02-07] MEDS: ARTIFICAL TEARS 0.4 ML UNIT DOSE (REFRESH PLUS) OU SCH ×4 (09:48→22:02)
[2021-02-07] MEDS: SERTRALINE 50 MG (ZOLOFT) TABLET PO SCH (09:48)
[2021-02-07] MEDS: CEFEPIME INJECTION 2,000 MG in WATER (STERILE) FOR INJECTION 20 ML IV SCH ×2 (09:50→21:42)
[2021-02-07] MEDS: MEMANTINE 10 MG (NAMENDA) TABLET PO SCH ×2 (09:50→22:02)
[2021-02-07] MEDS: ACETAMINOPHEN 325 MG TABLET PO SCH ×2 (09:50→22:02)
[2021-02-07] MEDS: CYANOCOBALAMIN 1,000 MCG (VITAMIN B-12) TABLET PO SCH (09:58)
[2021-02-07] MEDS: ENOXAPARIN 40 MG/0.4 ML (LOVENOX) SYR SC SCH (09:58)
[2021-02-07 11:31] VITALS: BP 134/68
--- NOTE | 2021-02-07 11:47 | Progress Note - Hospitalist ---
Subjective HPI/CC On Admission Date Seen by Provider: Feb 07, 2021 Time Seen by Provider: 11:00 CC: Altered mental status Subjective/Events-last exam Patient has had no changes No recoverability predicted [facility]eds back to the [facility] hospice Nurse has no concerns Combative at times Review of Systems General: Fatigue, Malaise Focused Exam Time of Focused Exam: 08:50 Objective Exam Vital Signs Vital Signs Date Time Temp Pulse Resp B/P (MAP) Pulse Ox O2 Delivery O2 Flow Rate FiO2 02/07/21 15:38 97 Nasal Cannula 4.00 02/07/21 11:31 36.7 74 20 134/68 (90) 02/03/21 00:16 28 Capillary Refill : Less Than 3 Seconds General Appearance: No Apparent Distress, WD/WN, Chronically ill, Other (Lethargic) Respiratory: Crackles, Decreased Breath Sounds Results/Procedures Lab Laboratory Tests 02/07/21 05:59 Patient resulted labs reviewed. Imaging: Reviewed Imaging Films, Reviewed Imaging Report Assessment/Plan Assessment and Plan Assess & Plan/Chief Complaint Assessment: Sepsis Pneumonia Dementia Delirium Atrial fibrillation Plan: Attempt to help recovery DNR Likely palliative care will help with end-of-life Critical Care Critically Ill Patient ZHANNA KELLY DO Feb 07, 2021 11:46
[2021-02-07] MEDS: LORazepam INJ 2 MG/ML (ATIVAN) VIAL IVP PRN (12:29)
--- NOTE | 2021-02-07 14:34 | Progress Note - Cardiology ---
Cardiology SOAP Progress Note Subjective: Verbally unresponsive Objective: I&O/Vital Signs 02/07/21 02/07/21 02/07/21 02/07/21 02:59 04:18 07:18 09:00 Temp 36.4 36.6 Pulse 57 82 Resp 20 20 B/P (MAP) 137/70 (92) 130/78 (95) Pulse Ox 93 91 100 92 O2 Delivery Nasal Cannula Nasal Cannula Nasal Cannula Nasal Cannula O2 Flow Rate 4.00 4.00 4.00 4.00 02/07/21 02/07/21 09:43 11:31 Temp 36.7 Pulse 74 Resp 20 B/P (MAP) 134/68 (90) Pulse Ox 90 92 O2 Delivery Nasal Cannula Nasal Cannula O2 Flow Rate 4.00 4.00 02/07/21 00:00 Intake Total 930 ml Output Total 1100 ml Balance -170 ml Constitutional: well-developed, well-nourished, other (Lethargic and verbally unresponsive) Respiratory: No accessory muscle use, No respiratory distress; chest expansion is symmetric, crackles (coarse crackles over large airways), rhonchi (scattered) Cardiovascular: regular rate-rhythm; No JVD; S1 and S2 Gastrointestional: soft, audible bowel sounds Extremities: no lower extremity edema bilateral Neurologic/Psychiatric: No oriented x 3; other (verbally unresponsive, seems to move all limbs, cannot follow commandds) Skin: normal color, warm/dry; No rash, No rash on exposed areas Results/Procedures: Labs Laboratory Tests 02/07/21 05:59: White Blood Count 6.0, Red Blood Count 3.70L, Hemoglobin 11.4L, Hematocrit 35L, Mean Corpuscular Volume 95, Mean Corpuscular Hemoglobin 31, Mean Corpuscular Hemoglobin Concent 32, Red Cell Distribution Width 13.1, Platelet Count 141, Mean Platelet Volume 11.0, Immature Granulocyte % (Auto) 1, Neutrophils (%) (Auto) 63, Lymphocytes (%) (Auto) 18, Monocytes (%) (Auto) 14H, Eosinophils (%) (Auto) 4, Basophils (%) (Auto) 1, Neutrophils # (Auto) 3.8, Lymphocytes # (Auto) 1.1, Monocytes # (Auto) 0.9, Eosinophils # (Auto) 0.2, Basophils # (Auto) 0.0, Immature Granulocyte # (Auto) 0.0, Sodium Level 137, Potassium Level 4.6, Chloride Level 100, Carbon Dioxide Level 25, Anion Gap 12, Blood Urea Nitrogen 23H, Creatinine 1.24, Estimat Glomerular Filtration Rate 55, BUN/Creatinine Ratio 19, Glucose Level 101, Calcium Level 9.7, Corrected Calcium 9.7, Total Bilirubin 0.7, Aspartate Amino Transf (AST/SGOT) 16, Alanine Aminotransferase (ALT/SGPT) 12, Alkaline Phosphatase 55, Total Protein 7.0, Albumin 4.0 Microbiology 02/02/21 MRSA Screen - Final, Complete MRSA not isolated 02/02/21 Blood Culture - Preliminary, Resulted No growth 02/02/21 Urine Culture - Final, Complete Mixed Bacterial Richelle Laboratory Tests 02/06/21 07:09 02/07/21 05:59 A/P: Assessment: Pneumonia, on antibiotics, currently receiveing IVF, management by Medical services AMS and h/o dementia, management by [facility] Coronary artery disease - H/O CABG - conservative management per Dr. Muhammad ICM - echocardiogram done November [address] 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 Interrogation done January 2021 showing good sensing and capture activity,continue to monitor - followed by Dr. Muhammad Hypertension - adjust regimen Hyperlipidemia Acute Renal insufficiency likely secondary to hypotension d/t sepsis - resolved Dementia Plan: Monitor lab closely Management of pneumonia per Medical services MAXIME AGUIRRE MD FACP [facility] Feb 07, 2021 14:34
[2021-02-07 16:00] VITALS: BP 139/84
[2021-02-07] MEDS: TAMSULOSIN 0.4 MG (FLOMAX) CAP PO SCH (17:42)
[2021-02-07 19:59] VITALS: BP 138/70
[2021-02-08 00:14] VITALS: BP 127/82
[2021-02-08] MEDS: RT-ALBUTEROL/IPRATROPIUM 3 ML (DUONEB) VIAL INH SCH ×3 (03:07→14:48)
[2021-02-08 04:11] VITALS: BP 133/74
[2021-02-08] MEDS: BETHANECHOL 25 MG (URECHOLINE) TAB PO SCH ×4 (06:29→20:07)
[2021-02-08 06:50] LABS: BASOPHILS % (AUTO) 1 % (0-10); EOSINOPHILS # (AUTO) 0.2 10^3/uL (0.0-0.3); EOSINOPHILS % (AUTO) 4 % (0-10); HEMATOCRIT 36 % (40-54); HEMOGLOBIN 11.8 g/dL (13.3-17.7); LYMPHOCYTES # (AUTO) 0.9 10^3/uL (1.0-4.0); LYMPHOCYTES % (AUTO) 17 % (12-44); MEAN CORPUSCULAR HEMOGLOBIN 31 pg (25-34); MEAN CORPUSCULAR HGB CONC 33 g/dL (32-36); MEAN CORPUSCULAR VOLUME 94 fL (80-99); MEAN PLATELET VOLUME 10.6 fL (9.0-12.2); MONOCYTES # (AUTO) 0.6 10^3/uL (0.0-1.0); MONOCYTES % (AUTO) 12 % (0-12); NEUTROPHILS # (AUTO) 3.5 10^3/uL (1.8-7.8); NEUTROPHILS % (AUTO) 67 % (42-75); PLATELET COUNT 159 10^3/uL (130-400); WHITE BLOOD COUNT 5.3 10^3/uL (4.3-11.0)
[2021-02-08 07:13] LABS: POTASSIUM 4.1 MMOL/L (3.6-5.0)
[2021-02-08 07:14] LABS: CALCIUM 9.8 MG/DL (8.5-10.1)
[2021-02-08 07:17] LABS: BILIRUBIN,TOTAL 0.7 MG/DL (0.1-1.0)
[2021-02-08 07:18] LABS: CREATININE SERUM 1.16 MG/DL (0.60-1.30)
[2021-02-08 08:00] VITALS: BP 158/92
[2021-02-08] MEDS: ASPIRIN E.C. 81 MG (ECOTRIN) TAB PO SCH ×2 (09:00→09:14)
[2021-02-08] MEDS: PANTOPRAZOLE 40 MG (PROTONIX) TAB PO SCH ×2 (09:00→09:14)
[2021-02-08] MEDS: FUROSEMIDE 20 MG (LASIX) TAB PO SCH ×2 (09:00→09:14)
[2021-02-08] MEDS: MEMANTINE 10 MG (NAMENDA) TABLET PO SCH ×2 (09:00→09:13)
[2021-02-08] MEDS: CYANOCOBALAMIN 1,000 MCG (VITAMIN B-12) TABLET PO SCH ×2 (09:00→09:14)
[2021-02-08] MEDS: SERTRALINE 50 MG (ZOLOFT) TABLET PO SCH ×2 (09:00→09:13)
[2021-02-08] MEDS: DOCUSATE SODIUM 100 MG (COLACE) CAP PO SCH ×2 (09:13→20:07)
[2021-02-08] MEDS: LORATADINE (CLARITIN) 10 MG TAB PO SCH ×2 (09:13→13:29)
[2021-02-08] MEDS: ACETAMINOPHEN 325 MG TABLET PO SCH (09:14)
[2021-02-08] MEDS: ARTIFICAL TEARS 0.4 ML UNIT DOSE (REFRESH PLUS) OU SCH ×4 (09:15→20:28)
--- NOTE | 2021-02-08 10:48 | Cardiology Progress Note ---
Subjective Date Seen by Provider: Feb 08, 2021 Time Seen by Provider: 10:15 Subjective/Events-last exam Patient was in bed and evaluated this morning. Still unresponsive to verbal commands. Review of Systems General: No Chills, No Night Sweats, No Fatigue, No Malaise, No Appetite, No Other HEENT: No Head Aches, No Visual Changes, No Eye Pain, No Ear Pain, No Dysphasi a, No Sinus Congestion, No Post Nasal Drip, No Sore Throat, No Other Pulmonary: No Dyspnea, No Cough, No Pleuritic Chest Pain, No Other Cardiovascular: No: Chest Pain, Palpitations, Orthopnea, Paroxysmal Noc. Dyspnea, Edema, Lt Headedness, Other Unable to obtain due to unresponsiveness Focused Exam Time of Focused Exam: 08:50 Objective-Cardiology Exam Last Set of Vital Signs Vital Signs 02/03/21 02/08/21 02/08/21 00:16 08:00 10:26 Temp 36.9 Pulse 79 Resp 20 B/P (MAP) 158/92 (114) Pulse Ox 91 O2 Delivery Nasal Cannula O2 Flow Rate 4.00 FiO2 28 I&O Intake and Output 02/08/21 00:00 Intake Total 500 ml Output Total 575 ml Balance -75 ml Intake Oral 500 ml Output Urine Total 575 ml # Voids 3 # Bowel Movements 1 General: Other (Lethargic not following commands.) HEENT: Atraumatic Neck: Supple Lungs: Normal Air Movement, Other (Bilateral rhonchi) Heart: Regular Rate, Normal S1, Normal S2 Extremities: No Clubbing Skin: No Rashes Neuro: Other (Not following commands or responding appropriately) Psych/Mental Status: Other (Not following commands) Results Lab Laboratory Tests 02/08/21 06:22 A/P-Cardiology Admission Diagnosis Pneumonia AMS CAD CHF Assessment/Plan Questionable pneumonia, chest x-ray showed mild pulmonary edema, currently not receiving antibiotic and white counts are normal. Blood cultures are negative. Managed by primary care team Change in mental status, delirium, lethargic, receiving Geodon. Not following commands or opening his eyes. CT scan of the head did not show acute abnormality, chronic changes. Followed and managed by primary care physician Coronary artery disease, s/p CABG in the past. Will continue with conservative management. 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 was unable to tolerate losartan as an outpatient due to hypo tension, currently maintained on Toprol. Continue to monitor Complete heart block, s/p dual chamber PPM implantation done February 28, 2020. Interrogation done January 2021 showing good sensing and capture activity,continue to monitor Hypertension, maintained on Toprol-XL 25 mg daily, continue to monitor Hyperlipidemia, continue to monitor as outpatient Renal insufficiency, continue to monitor renal function. Dementia, progressive, managed by primary care physician Supervisory-Addendum Brief Verification & Attestation Participated in pt care: history, MDM, physical Personally performed: exam, history, MDM, supervision of care Care discussed with: Medical Student Procedures: n/a Results interpretation: Verified all documentation Verification and Attestation of Medical Student E/M Service A medical student performed and documented this service in my presence. I reviewed and verified all information documented by the medical student and made modifications to such information, when appropriate. I personally performed the physical exam and medical decision making. Slade Muhammad, Feb 08, 2021,11:36 LILY WARREN Feb 08, 2021 10:48 SLADE MUHAMMAD MD Feb 08, 2021 11:33
[2021-02-08 12:00] VITALS: BP 125/71
[2021-02-08] MEDS: LORazepam INJ 2 MG/ML (ATIVAN) VIAL IVP PRN (12:45)
[2021-02-08] MEDS: ENOXAPARIN 40 MG/0.4 ML (LOVENOX) SYR SC SCH (12:46)
[2021-02-08 15:05] VITALS: BP 111/67
[2021-02-08] MEDS ORDERED: SCOPOLAMINE 1.5 MG (TRANSDERM-SCOP) PATCH TD ONE (15:30)
--- NOTE | 2021-02-08 16:28 | Progress Note ---
Subjective Subjective/Events-last exam Patient with grimace. Pulls away from pain stimuli but does not open eyes. Unable to assess ROS Spoke with DPOA Vj: Grand daughter: She was updated on current status and the ongoing decline. Grave status. She is going to talk to her family regarding goal of care moving forward but she is leaning toward comfort care. Review of Systems Unable to assess due to status Focused Exam Time of Focused Exam: 08:50 Objective Exam Last Set of Vital Signs Vital Signs Date Time Temp Pulse Resp B/P (MAP) Pulse Ox O2 Delivery O2 Flow Rate FiO2 02/08/21 15:05 37.1 93 24 111/67 (82) 89 Nasal Cannula 7.00 02/03/21 00:16 28 Capillary Refill : Less Than 3 Seconds I&O Intake and Output 02/08/21 00:00 Intake Total 500 ml Output Total 575 ml Balance -75 ml Intake Oral 500 ml Output Urine Total 575 ml # Voids 3 # Bowel Movements 1 General: Moderate Distress (increased work of breathing) Lungs: Other (rattle and crackles thru out) Heart: Regular Rate Abdomen: Soft Neuro: Other (Responds to painful stimuli, does not open eyes) Results/Procedures Lab Laboratory Tests 02/08/21 06:22: White Blood Count 5.3, Red Blood Count 3.84L, Hemoglobin 11.8L, Hematocrit 36L, Mean Corpuscular Volume 94, Mean Corpuscular Hemoglobin 31, Mean Corpuscular Hemoglobin Concent 33, Red Cell Distribution Width 12.9, Platelet Count 159, Me an Platelet Volume 10.6, Immature Granulocyte % (Auto) 1, Neutrophils (%) (Auto) 67, Lymphocytes (%) (Auto) 17, Monocytes (%) (Auto) 12, Eosinophils (%) (Auto) 4, Basophils (%) (Auto) 1, Neutrophils # (Auto) 3.5, Lymphocytes # (Auto) 0.9L, Monocytes # (Auto) 0.6, Eosinophils # (Auto) 0.2, Basophils # (Auto) 0.0, Immature Granulocyte # (Auto) 0.0, Sodium Level 137, Potassium Level 4.1, Chloride Level 99, Carbon Dioxide Level 23, Anion Gap 15H, Blood Urea Nitrogen 25H, Creatinine 1.16, Estimat Glomerular Filtration Rate 59, BUN/Creatinine Ratio 22, Glucose Level 86, Calcium Level 9.8, Corrected Calcium 9.8, Total Bilirubin 0.7, Aspartate Amino Transf (AST/SGOT) 19, Alanine Aminotransferase (ALT/SGPT) 12, Alkaline Phosphatase 57, Total Protein 7.0, Albumin 4.0 Microbiology 02/02/21 MRSA Screen - Final, Complete MRSA not isolated 02/02/21 Blood Culture - Final, Complete No growth 02/02/21 Urine Culture - Final, Complete Mixed Bacterial Richelle Assessment/Plan Assessment/Plan (1) Sepsis Status: Acute Assessment & Plan: 02/08: Spoke with DPOA, updated on current decline in status and she is going to talk to the family regarding comfort care, currently on antibiotics and gentle IVFs Qualifiers: Qualified Codes: A41.9 - Sepsis, unspecified organism; R65.20 - Severe sepsis without septic shock; J96.01 - Acute respiratory failure with hypoxia (2) Altered mental status Status: Acute Assessment & Plan: 02/08: Only responding to painful stimuli Qualifiers: Qualified Codes: R41.82 - Altered mental status, unspecified (3) Pneumonia Status: Acute Qualifiers: Qualified Codes: J18.9 - Pneumonia, unspecified organism (4) Atrial fibrillation Status: Chronic Qualifiers: Qualified Codes: I48.91 - Unspecified atrial fibrillation (5) Delirium due to another medical condition Status: Acute (6) Advanced age Status: Chronic JUDITH VENTURA MD Feb 08, 2021 16:28
[2021-02-08] MEDS ORDERED: ARTIFICAL TEARS 0.4 ML UNIT DOSE (REFRESH PLUS) OU PRN (16:30)
[2021-02-08] MEDS ORDERED: ONDANSETRON 4 MG/2 ML (SDV) Z0FRAN IVP PRN (16:30)
[2021-02-08] MEDS ORDERED: PROMETHAZINE INJ 25 MG/ML (PHENERGAN) AMP IVP PRN (16:30)
[2021-02-08] MEDS ORDERED: ACETAMINOPHEN 650 MG SUPP (TYLENOL) PR PRN (16:30)
[2021-02-08] MEDS ORDERED: RT-ALBUTEROL/IPRATROPIUM 3 ML (DUONEB) VIAL INH PRN (16:30)
[2021-02-08] MEDS ORDERED: ATROPINE 1% OPHTHALMIC SOLN 2 ML SL PRN (16:30)
[2021-02-08] MEDS: GLYCOPYRROLATE 0.2 MG/ML (ROBINUL) 2 ML VIAL IV PRN (17:09)
[2021-02-08] MEDS: morphine INJ 4 MG/ML 1 ML (VIAL/SYRINGE) IV PRN ×2 (17:19→22:21)
[2021-02-08] MEDS: SALIVA STIMULANT MOUTH SPRAY (BIOTENE) 1.5 OZ MM PRN (20:28)
[2021-02-09] MEDS: GLYCOPYRROLATE 0.2 MG/ML (ROBINUL) 2 ML VIAL IV PRN ×3 (00:05→12:10)
[2021-02-09] MEDS: LORazepam INJ 2 MG/ML (ATIVAN) VIAL IVP PRN ×2 (01:12→09:04)
[2021-02-09] MEDS: morphine INJ 4 MG/ML 1 ML (VIAL/SYRINGE) IV PRN ×3 (01:12→12:06)
[2021-02-09] MEDS: BETHANECHOL 25 MG (URECHOLINE) TAB PO SCH ×2 (05:35→10:43)
--- NOTE | 2021-02-09 07:53 | Cardiology Progress Note ---
Subjective Date Seen by Provider: Feb 09, 2021 Time Seen by Provider: 07:48 Subjective/Events-last exam Patient is still unresponsive. Review of Systems Unable to obtain due to unresponsiveness Focused Exam Time of Focused Exam: 08:50 Objective-Cardiology Exam Last Set of Vital Signs Vital Signs 02/03/21 02/08/21 02/09/21 00:16 15:05 12:18 Temp 37.1 Pulse 93 Resp 24 B/P (MAP) 111/67 (82) Pulse Ox 89 O2 Delivery Nasal Cannula O2 Flow Rate 2.00 FiO2 28 I&O Intake and Output 02/09/21 00:00 Intake Total 1525 ml Output Total 905 ml Balance 620 ml Intake Oral 250 ml IV Total 1275 ml Output Urine Total 905 ml # Voids 2 General: Moderate Distress (increased work of breathing) HEENT: Atraumatic Neck: Supple Lungs: Other (rattles bilaterally) Heart: Regular Rate Abdomen: Soft Neuro: Other (Not following commands) Psych/Mental Status: Other (Not following commands) A/P-Cardiology Admission Diagnosis Pneumonia AMS CAD CHF Assessment/Plan Change in mental status, delirium, lethargic, receiving Geodon. Not following commands or opening his eyes. CT scan of the head did not show acute abnormality, chronic changes. Followed and managed by primary care physician, expected to receive comfort care Coronary artery disease, s/p CABG in the past. Will continue with conservative management. 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 was unable to tolerate losartan as an outpatient due to hypotension, currently maintained on Toprol. Continue to monitor Complete heart block, s/p dual chamber PPM implantation done February 28, 2020. Interrogation done January 2021 showing good sensing and capture activity,continue to monitor Hypertension, maintained on Toprol-XL 25 mg daily, continue to monitor Hyperlipidemia, continue to monitor as outpatient Renal insufficiency, continue to monitor renal function. Dementia, progressive, managed by primary care physician Questionable pneumonia, chest x-ray showed mild pulmonary edema, currently not receiving antibiotic and white counts are normal. Blood cultures are negative. Managed by primary care team Supervisory-Addendum Brief Verification & Attestation Participated in pt care: history, MDM, physical Personally performed: exam, history, MDM, supervision of care Care discussed with: Medical Student Procedures: n/a Results interpretation: Verified all documentation Verification and Attestation of Medical Student E/M Service A medical student performed and documented this service in my presence. I reviewed and verified all information documented by the medical student and made modifications to such information, when appropriate. I personally performed the physical exam and medical decision making. Slade Muhammad, Feb 09, 2021,12:49 LILY WARREN Feb 09, 2021 07:53 SLAED MUHAMMAD MD Feb 09, 2021 12:49
[2021-02-09] MEDS: ARTIFICAL TEARS 0.4 ML UNIT DOSE (REFRESH PLUS) OU SCH (09:00)
[2021-02-09] MEDS: DOCUSATE SODIUM 100 MG (COLACE) CAP PO SCH (09:00)
[2021-02-09] MEDS: SALIVA STIMULANT MOUTH SPRAY (BIOTENE) 1.5 OZ MM PRN (09:08)
--- NOTE | 2021-02-09 10:55 | Discharge Summary ---
Diagnosis/Chief Complaint Date of Admission Feb 02, 2021 at 21:50 Date of Discharge Discharge Diagnosis Problems/Diagnosis: (1) Sepsis Assessment & Plan: 02/08: Spoke with DPOA, updated on current decline in status and she is going to talk to the family regarding comfort care, currently on antibiotics and gentle IVFs Qualifiers: Qualified Codes: A41.9 - Sepsis, unspecified organism; R65.20 - Severe sepsis without septic shock; J96.01 - Acute respiratory failure with hypoxia Status: Acute (2) Altered mental status Assessment & Plan: 02/08: Only responding to painful stimuli Qualifiers: Qualified Codes: R41.82 - Altered mental status, unspecified Status: Acute (3) Pneumonia Qualifiers: Qualified Codes: J18.9 - Pneumonia, unspecified organism Status: Acute (4) Atrial fibrillation Qualifiers: Qualified Codes: I48.91 - Unspecified atrial fibrillation Status: Chronic (5) Delirium due to another medical condition Status: Acute (6) Advanced age Status: Chronic Discharge Summary-Simple/Stand Consultations Discharge Physical Examination Allergies: Coded Allergies: Penicillins (Verified Allergy, Unknown, 02/27/20) Vitals & I&Os Vital Sign - Last 12Hours Date Time Temp Pulse Resp B/P (MAP) Pulse Ox O2 Delivery O2 Flow Rate FiO2 02/09/21 09:00 Nasal Cannula 2.00 02/08/21 15:05 37.1 93 24 111/67 (82) 89 02/03/21 00:16 28 Intake and Output 02/09/21 00:00 Intake Total 1425 ml Output Total 905 ml Balance 520 ml Hospital Course See final discharge diagnosis. Discharge Instructions to patient/family Please see electronic discharge instructions given to patient. Discharge Medications Reviewed and agree with Discharge Medication list on patient's Discharge Instruction sheet JUDITH VENTURA MD Feb 09, 2021 10:55
--- NOTE | 2021-02-09 10:58 | Discharge Summary ---
Discharge [facility] Reconcile Patient Problems Problems Reviewed?: Yes Discharge Medications New, Converted or Re-Newed RX: Other (Comfort meds only) Activity & Diet Discharge Diet: Other Diet (NPO) JUDITH VENTURA MD Feb 09, 2021 10:58
[2021-02-11] MEDS ORDERED: SCOPOLAMINE PATCH REMOVAL TP ONE (15:30)
== END 2021-02-09 12:18 | disposition hospice, home (50) | DRG 871 ==
LOC: EDUNIT# 18:33 → ER 18:34 → ICU 21:50 → 4TH 02-05 09:06
PROVIDERS: ADMIT Internal Medicine; ATTEND Family Medicine
DX: A41.9 Sepsis, unspecified organism (principal); J96.01 Acute respiratory failure with hypoxia; J18.9 Pneumonia, unspecified organism; G93.41 Metabolic encephalopathy; I48.20 Chronic atrial fibrillation, unspecified; F05 Delirium due to known physiological condition; I50.22 Chronic systolic (congestive) heart failure; N17.9 Acute kidney failure, unspecified; R44.3 Hallucinations, unspecified; Z66 Do not resuscitate; Z51.5 Encounter for palliative care; R65.20 Severe sepsis without septic shock; I25.10 Atherosclerotic heart disease of native coronary artery without angina pectoris; F03.90 Unspecified dementia, unspecified severity, without behavioral disturbance, psychotic disturbance, mood disturbance, and anxiety; I25.5 Ischemic cardiomyopathy; I11.0 Hypertensive heart disease with heart failure; E78.5 Hyperlipidemia, unspecified; I71.4 Abdominal aortic aneurysm, without rupture; J43.9 Emphysema, unspecified; Z79.899 Other long term (current) drug therapy; Z95.1 Presence of aortocoronary bypass graft; Z88.0 Allergy status to penicillin; Z95.0 Presence of cardiac pacemaker; Z79.82 Long term (current) use of aspirin; Z20.822 Contact with and (suspected) exposure to COVID-19
CPT/HCPCS: 36415; 36600; 70450; 71045; 74176; 80048; 80053; 81000; 82805; 83605; 83735; 84100; 84145; 84484; 85025; 86141; 87040; 87081; 87088; 87636; 93005; 94640; 94668; 94760; 96374; 96375; 99291